=== PATIENT | female | born 1990 | race Caucasian/White ===

== ENCOUNTER 2019-08-10 11:25 | Outpatient (REF) | payer SELFPAY ==
[2019-08-10 13:41] LABS: Basophils % 0.6 %; Eosinophils # 0.2 10^3/uL (0.0-0.8); Eosinophils % 2.2 %; Hematocrit 38.1 % (37.0-47.0); Hemoglobin 11.3 g/dL (11.5-15.3); Lymphocytes # 2.1 10^3/uL (0.8-4.8); Lymphocytes % 31.3 %; Mean Corpuscular HGB Conc 29.7 g/dL (30.0-36.0); Mean Corpuscular Hemoglobin 22.6 pg (28.0-34.0); Mean Corpuscular Volume 76.2 fL (81-99); Mean Platelet Volume 11.1 fL (7.4-10.4); Monocytes # 0.5 10^3/uL (0.2-0.9); Monocytes % 7.1 %; Neutrophils # 3.9 10^3/uL (1.8-7.7); Neutrophils % 58.5 %; Nucleated Red Blood Cells % 0 %; Platelet Count 328 10^3/cmm (130-400); Red Cell Distribution Width 16.9 % (12.1-15.1); White Blood Count 6.7 10^3/uL (4.0-10.0)
[2019-08-10 14:04] LABS: Estmated Average Glucose 105; Hemoglobin A1C 5.3 % (4.0-6.0)
[2019-08-10 14:05] LABS: Alanine Aminotransferase 11 U/L (0-33); Albumin Level 3.8 g/dL (3.5-5.2); Alkaline Phosphatase 86 IU/L (35-105); Anion Gap 18.2 (5-19); Aspartate Amino Transferase 15 U/L (0-32); Blood Urea Nitrogen 14 mg/dL (6-20); Calcium 9.4 mg/dL (8.5-10.5); Carbon Dioxide 23 mmol/L (22-29); Chloride 103 mmol/L (98-107); Chol HDL Ratio 4.75 mg/dL (0.0-4.40); Cholesterol 171 mg/dL (0-200); Globulin 4.2 g/dL (1.3-4.6); Glomerular Filtration Rate 117.4 mL/min (90-130); Glucose 95 mg/dL (74-109); HDL Cholesterol 36 mg/dL (60-100); LDL Cholesterol Calculated 95 mg/dL (50-129); LDL HDL Ratio 2.64 RATIO (0.00-3.22); Potassium 4.2 mmol/L (3.5-5.1); Sodium 140 mmol/L (136-145); Total Bilirubin 0.3 mg/dL (0.15-1.2); Triglycerides 202 mg/dL (0-150)
== END 2019-08-10 11:26 | disposition home or self-care (01) ==
LOC: LAB 11:25
PROVIDERS: Visit Provider Dermatology
DX: Z01.89 Encounter for other specified special examinations (principal)
CPT/HCPCS: 80053; 80061; 83036; 85025

== ENCOUNTER 2019-09-28 10:40 | Emergency (ER) | payer SELFPAY ==
[2019-09-28 10:49] VITALS: BP 132/102; PULSE 97; RESP 15; TEMP 36.8; O2SAT 96; BMI 37.9
--- NOTE | 2019-09-28 10:53 | W.ED.DENTAL ---
HPI - Dental/Oral General: Stated complaint: fever/throwing up Time Seen by Provider: 09/28/19 10:53 Coding Level of Care Code ED Data Entry Associate for Cassi Singh
--- NOTE | 2019-09-28 11:01 | W.ED.NAVMDI ---
HPI - Nausea/Vomiting/Diarrhea General: Chief complaint: Nausea/Vomiting/Diarrhea Stated complaint: fever/throwing up Time Seen by Provider: 09/28/19 10:53 History of Present Illness: HPI Narrative: Patient comes in today with a nausea and vomiting starting this morning. Patient appears mildly unwell. Patient appears in no pain. Patient has no primary care provider. Patient does use inhalers at times for asthma. Patient does not report a fever. MD elicited complaint: nausea and vomiting Associated nausea: Yes Associated symtoms: Reports nausea Review of Systems General: Reports: 10 or more systems reviewed and unremarkable except in HPI and below GI: Reports: nausea and vomiting PFSH ED PFSH: Social History Smoking and tobacco status: former smoker Female Reproductive History: Date of last menstrual period: 07/12/19 Physical Exam Const: COMMON NORMALS: no apparent distress and oriented x3 GENERAL APPEARANCE: cooperative HENMT: COMMON NORMALS: normocephalic, external ears normal, EAC's normal, TM's normal bilaterally and external nose normal HEAD & SCALP: normal to inspection and normocephalic FACE & SINUS: normal facial exam NOSE: external nose normal GENERAL EAR: hearing not grossly impaired EXTERNAL EAR: Yes external ears normal EXTERNAL AUDITORY CANAL: EAC's normal TYMPANIC MEMBRANE: TM's normal bilaterally MOUTH: oral and palatal mucosa normal THROAT: posterior oropharynx normal Eye: COMMON NORMALS: PERRL and EOMs intact bilaterally PUPIL: Yes PERRL Neck/C-Spine: COMMON NORMALS: full ROM and no lymphadenopathy Lymph: LYMPHATIC: no lymphedema noted Chest: COMMONS NORMALS: inspection of chest normal and palpation of chest normal Resp: COMMON NORMALS: normal respiratory effort and clear to auscultation bilaterally AUSCULTATION: clear to auscultation bilaterally Cardio: COMMON NORMALS: regular rate and regular rhythm RATE: regular rate RHYTHM: regular rhythm GI: COMMON NORMALS: normal to inspection, nondistended, normoactive bowel sounds and non-tender : COMMON NORMALS: Yes no CVA tenderness BLADDER/KIDNEY EXAM: Yes no CVA tenderness Back/Pelvis: COMMON NORMALS: no CVA tenderness and thoracic and lumbar spine normal to inspection Extremity: COMMON NORMALS: normal to inspection GENERAL: No edema Neuro: COMMON NORMALS: oriented x3, moves all extremities and no focal motor deficits Psych: COMMON NORMALS: mental status grossly normal and cooperative Skin: COMMON NORMALS: no rashes or lesions noted GENERAL SKIN EXAM: no rashes or lesions noted Course Vital Signs: Vital signs: Vital Signs Temperature 98.2 F 09/28/19 10:49 Pulse Rate 97 09/28/19 10:49 Respiratory Rate 15 09/28/19 10:49 Blood Pressure 132/102 09/28/19 10:49 Pulse Oximetry 96 09/28/19 10:49 MDM - Nausea/Vomiting/Diarrhea MDM Narrative: Medical decision making narrative: Patient presents today with complaints of nausea and vomiting starting this morning. Patient appears mildly unwell. Exam notes abdomen soft nontender. Vital signs are normal. Respirations are even lungs are clear to auscultation. Differential diagnosis includes gastroenteritis, viral syndrome, cholecystitis, pancreatitis, , urinary tract infection. Laboratory values were insignificant. Encourage plenty of fluids and plenty of rest. Discussed need for medication for nausea. Patient reports understanding of care plan and need for follow-up. Lab Data: Labs: Lab Results 09/28/19 09/28/19 09/28/19 Range/Units 11:46 11:46 11:46 WBC 5.8 (4.0-10.0) 10^3/ uL RBC 4.71 (4.1-5.3) 10^6/u L Hgb 10.7 L (11.5-15.3) g/dL Hct 36.4 L (37.0-47.0) % MCV 77.3 L (81-99) fL MCH 22.7 L (28.0-34.0) pg MCHC 29.4 L (30.0-36.0) g/dL RDW 16.0 H (12.1-15.1) % Plt Count 321 (130-400) 10^3/c mm MPV 10.5 H (7.4-10.4) fL Neut % (Auto) 62.6 % Lymph % (Auto) 23.8 % [place] % (Auto) 10.8 % Eos % (Auto) 2.3 % Baso % (Auto) 0.3 % Neut # (Auto) 3.6 (1.8-7.7) 10^3/u L Lymph # (Auto) 1.4 (0.8-4.8) 10^3/u L [place] # (Auto) 0.6 (0.2-0.9) 10^3/u L Eos # (Auto) 0.1 (0.0-0.8) 10^3/u L Baso # (Auto) 0.0 (0.0-0.1) 10^3/u L Nucleated RBC % (a uto) 0 % Nucleated RBCs # 0.0 /100WBC Sodium 138 (136-145) mmol/L Potassium 4.1 (3.5-5.1) mmol/L Chloride 104 (98-107) mmol/L Carbon Dioxide 22 (22-29) mmol/L Anion Gap 16.1 (5-19) BUN 9 (6-20) mg/dL Creatinine 0.5 (0.5-0.9) mg/dL GFR Calculation 144.9 H (90-130) mL/min Glucose 88 (65-115) mg/dL Calculated Osmolal ity 281 L (285-295) mOsm/k g Calcium 9.0 (8.5-10.5) mg/dL Total Bilirubin 0.3 (0.15-1.2) mg/dL AST 18 (0-32) U/L ALT 12 (0-33) U/L Alkaline Phosphata se 81 (35-105) IU/L Total Protein 7.3 (6.6-8.7) g/dL Albumin 3.8 (3.5-5.2) g/dL Globulin 3.5 (1.3-4.6) g/dL Lipase 14 (13-60) U/L HCG, Qual Negative (Negative) Urine Color (Yellow) Urine Appearance (CLEAR) Urine pH (5-7) Ur Specific Gravit y (1.005-1.030) Urine Protein (Negative) Urine Glucose (UA) (Normal) Urine Ketones (Negative) Urine Blood (Negative) Urine Nitrate (Negative) Urine Bilirubin (NEGATIVE) Prot Sulfosalicyli c Acd Urine Urobilinogen (Negative) mg/dL Ur Leukocyte Samantha ase (Negative) Urine RBC (0-2) /hpf Urine WBC (0-5) /hpf Ur Squamous Epith Cells (0-5) Urine Bacteria (NONE) Influenza Type A A g (Negative) POC Influenza B Ag (Negative) 09/28/19 09/28/19 Range/Units 11:46 12:08 WBC (4.0-10.0) 10^3/ uL RBC (4.1-5.3) 10^6/u L Hgb (11.5-15.3) g/dL Hct (37.0-47.0) % MCV (81-99) fL MCH (28.0-34.0) pg MCHC (30.0-36.0) g/dL RDW (12.1-15.1) % Plt Count (130-400) 10^3/c mm MPV (7.4-10.4) fL Neut % (Auto) % Lymph % (Auto) % [place] % (Auto) % Eos % (Auto) % Baso % (Auto) % Neut # (Auto) (1.8-7.7) 10^3/u L Lymph # (Auto) (0.8-4.8) 10^3/u L [place] # (Auto) (0.2-0.9) 10^3/u L Eos # (Auto) (0.0-0.8) 10^3/u L Baso # (Auto) (0.0-0.1) 10^3/u L Nucleated RBC % (a uto) % Nucleated RBCs # /100WBC Sodium (136-145) mmol/L Potassium (3.5-5.1) mmol/L Chloride (98-107) mmol/L Carbon Dioxide (22-29) mmol/L Anion Gap (5-19) BUN (6-20) mg/dL Creatinine (0.5-0.9) mg/dL GFR Calculation (90-130) mL/min Glucose (65-115) mg/dL Calculated Osmolal ity (285-295) mOsm/k g Calcium (8.5-10.5) mg/dL Total Bilirubin (0.15-1.2) mg/dL AST (0-32) U/L ALT (0-33) U/L Alkaline Phosphata se (35-105) IU/L Total Protein (6.6-8.7) g/dL Albumin (3.5-5.2) g/dL Globulin (1.3-4.6) g/dL Lipase (13-60) U/L HCG, Qual (Negative) Urine Color Yellow (Yellow) Urine Appearance Hazy A (CLEAR) Urine pH 8 H (5-7) Ur Specific Gravit y 1.005 (1.005-1.030) Urine Protein Neg (Negative) Urine Glucose (UA) Norm (Normal) Urine Ketones Negative (Negative) Urine Blood Neg (Negative) Urine Nitrate Negative (Negative) Urine Bilirubin Neg (NEGATIVE) Prot Sulfosalicyli c Acd Negative Urine Urobilinogen Norm (Negative) mg/dL Ur Leukocyte Samantha ase Negative (Negative) Urine RBC None (0-2) /hpf Urine WBC None (0-5) /hpf Ur Squamous Epith Cells 10-15 H (0-5) Urine Bacteria 1+ H (NONE) Influenza Type A A g Negative (Negative) POC Influenza B Ag Negative (Negative) Discharge Plan Discharge Patient Disposition: Home, Self-Care Clinical Impression: Gastroenteritis Condition: Stable Prescriptions: New ondansetron HCl 4 mg tablet 4 mg PO Q8H PRN (Reason: nausea and vomiting) Qty: 10 RF: 0 Discharge Orders: Discharge Order (Routine); Ordered 09/28/19 Ordered By: Markus Thakur Discharge Diet: Advance as tolerated Discharge Activity: Increase activity as tolerated Patient Instructions: Gastroenteritis (ED) Activity Restrictions/Additional Instructions: Drink plenty of fluids Activity as tolerated Follow-up with primary care in one week Return to ER for worsening symptoms, high fever or blood in stool or vomit Coding Level of Care Code ED Telecommunication Engineer for Cassi Fwd Exam Comprehensive
[2019-09-28] MEDS: ondansetron 2 mg/ML SDV 2 mL 4 MG IVP (11:39)
[2019-09-28] MEDS: sodium chloride 0.9% 1,000 ML 999 ML IV (11:40)
[2019-09-28 12:00] LABS: Basophils % 0.3 %; Eosinophils # 0.1 10^3/uL (0.0-0.8); Eosinophils % 2.3 %; Hematocrit 36.4 % (37.0-47.0); Hemoglobin 10.7 g/dL (11.5-15.3); Lymphocytes # 1.4 10^3/uL (0.8-4.8); Lymphocytes % 23.8 %; Mean Corpuscular HGB Conc 29.4 g/dL (30.0-36.0); Mean Corpuscular Hemoglobin 22.7 pg (28.0-34.0); Mean Corpuscular Volume 77.3 fL (81-99); Mean Platelet Volume 10.5 fL (7.4-10.4); Monocytes # 0.6 10^3/uL (0.2-0.9); Monocytes % 10.8 %; Neutrophils # 3.6 10^3/uL (1.8-7.7); Neutrophils % 62.6 %; Nucleated Red Blood Cells % 0 %; Platelet Count 321 10^3/cmm (130-400); Red Blood Count 4.71 10^6/uL (4.1-5.3); White Blood Count 5.8 10^3/uL (4.0-10.0)
[2019-09-28 12:09] LABS: HCG, Serum Qual Negative (Negative)
[2019-09-28 12:12] LABS: Alanine Aminotransferase 12 U/L (0-33); Albumin Level 3.8 g/dL (3.5-5.2); Alkaline Phosphatase 81 IU/L (35-105); Anion Gap 16.1 (5-19); Aspartate Amino Transferase 18 U/L (0-32); Blood Urea Nitrogen 9 mg/dL (6-20); Carbon Dioxide 22 mmol/L (22-29); Chloride 104 mmol/L (98-107); Globulin 3.5 g/dL (1.3-4.6); Glomerular Filtration Rate 144.9 mL/min (90-130); Glucose 88 mg/dL (65-115); Lipase 14 U/L (13-60); Osmolality Calculated 281 mOsm/kg (285-295); Potassium 4.1 mmol/L (3.5-5.1); Sodium 138 mmol/L (136-145); Total Bilirubin 0.3 mg/dL (0.15-1.2); Total Protein 7.3 g/dL (6.6-8.7)
[2019-09-28 12:54] LABS: Influenza A by IFA Negative (Negative); Influenza B by IFA Negative (Negative)
[2019-09-28 13:00] LABS: Add Urine Microscopic? YES; Bilirubin Urine Neg (NEGATIVE); Blood Urine Neg (Negative); Glucose Urine UA Norm (Normal); Ketones Urine Negative (Negative); Leukocyte Esterase Urine Negative (Negative); Nitrate Urine Negative (Negative); Protein Urine Neg (Negative); Specific Gravity, Urine 1.005 (1.005-1.030); Sulfosalicylic Acid Urine Negative; Urine Appearance Hazy (CLEAR); Urine Color Yellow (Yellow); Urobilinogen Urine Norm (Negative); pH Urine 8 (5-7)
[2019-09-28 13:02] LABS: Add Urine Culture? No; Bacteria Urine 1+
[2019-09-28 14:44] VITALS: BP 125/74; PULSE 82; RESP 17; O2SAT 98
== END 2019-09-28 14:46 | disposition home or self-care (01) ==
PROVIDERS: Emergency Provider Nurse Practitioner Family
DX: K52.9 Noninfective gastroenteritis and colitis, unspecified (principal); Z87.891 Personal history of nicotine dependence
CPT/HCPCS: 12345; 36415; 80053; 81001; 83690; 84703; 85025; 87804; 96361; 96374; 96375; 99283; A9270; J2405; J7030

== ENCOUNTER 2019-12-05 17:27 | Emergency (ER) | payer SELFPAY ==
[2019-12-05 17:51] VITALS: BP 119/87; PULSE 97; RESP 16; TEMP 36.8; O2SAT 98; BMI 36.3
--- NOTE | 2019-12-05 17:59 | USCV_ITS ---
Leila Armstrong Age: 29 Gender: F : 1990 Exam Date: 12/05/2019 19:06 Ordering Phys: Constantine Marr MD Technologist: Jeffery Mensah Exam Location: [facility] [place] Indication: SWELLING HISTORY: Lower extremity swelling. PROCEDURES: Venous duplex imaging was performed in only the left lower extremity. The following venous structures were evaluated: common femoral vein, profunda vein, proximal portion of the greater saphenous vein, superficial femoral vein, and the popliteal vein. In addition, the posterior tibial and peroneal trunk were evaluated. Serial compression, augmentation maneuvers, and spectral Doppler flow evaluation were performed. FINDINGS: Normal 2-D Doppler and augmentation and compressibility throughout the lower extremity venous structures. Additional imaging through the proximal calf veins also reveals no thrombus. Limited evaluation of the greater saphenous vein is patent with no thrombus. CONCLUSIONS No DVT left lower extremity. Dr. Luciana Lam DO (Electronically Signed) Final Date: 07 Dec 2019 07:49 S
--- NOTE | 2019-12-05 18:00 | ED_ITS ---
HPI - Extremity Problem General: Chief complaint: Extremity Problem,Nontraumatic Stated complaint: r leg injury Time Seen by Provider: 12/05/19 17:55 Source: patient Mode of arrival: ambulatory Limitations: no limitations History of Present Illness: HPI Narrative: 29-year-old female states she had left posterior knee pain over the last day. She is concerned of a cyst or clot. She denies any known injury and states she woke up with the pain. She denies any fever and has no warmth of the joint. MD Complaint: joint pain Onset (ago): hour(s) Pain Consistency: constant Location: left Severity scale (1-10): 4 Quality: aching Relieving factors: immobilization Exacerbating factors: range of motion Associated symptoms: Deny chest pain, fever(s) or rash Review of Systems Const: Denies: fever(s), chills, body aches or change in appetite Eyes: Denies: blurry vision or eye discomfort ENMT: Denies: throat pain or dental pain Card: Denies: chest pain Resp: Denies: dyspnea GI: Denies: abdominal pain, nausea, vomiting or diarrhea : Denies: dysuria Musc: Denies: neck pain or back pain Skin/Breast: Denies: rash Neuro: Denies: headache(s) Psych: Denies: depression Brijesh/Lymph: Denies: easy bruising All/Imm: Denies: urticaria PFSH ED PFSH: Social History Smoking and tobacco status: never smoked Female Reproductive History: Date of last menstrual period: 11/14/19 Physical Exam Const: COMMON NORMALS: no acute distress, patient oriented x3 and healthy ap pearing HENMT: COMMON NORMALS: normocephalic and atraumatic HEAD & SCALP: normocephalic and atraumatic Eye: COMMON NORMALS: Equal, round and reactive pupils present and EOMs intact bilaterally PUPIL: Yes Equal, round and reactive pupils present Neck/C-Spine: COMMON NORMALS: full ROM and supple Chest: COMMONS NORMALS: normal inspection of the chest and normal palpation of entire chest wall Resp: COMMON NORMALS: normal respiratory effort, No retractions, No use of accessory muscles and clear to auscultation bilaterally AUSCULTATION: clear to auscultation bilaterally Cardio: COMMON NORMALS: regular rate, regular rhythm and No murmurs present (Cardio) RATE: regular rate RHYTHM: regular rhythm GI: COMMON NORMALS: Normal to inspection, nondistended, normoactive bowel sounds present, Soft to palpation, non-tender and no masses PALPATION: Yes Soft to palpation Extremity: COMMON NORMALS: normal to inspection and full ROM NARRATIVE EXTREMITY EXAM: Tenderness to posterior aspect of left knee with no obvious deformity full range of motion is possible. Neuro: COMMON NORMALS: patient oriented x3, moves all extremities and no focal motor deficits Psych: COMMON NORMALS: mental status grossly normal, Normal thought process present and cooperative THOUGHT PROCESS: Normal thought process present Skin: COMMON NORMALS: no rashes or lesions noted and no wounds GENERAL SKIN EXAM: no rashes or lesions noted Course Vital Signs: Vital signs: Vital Signs Temperature 98.2 F 12/05/19 17:51 Pulse Rate 102 H 12/05/19 18:44 Respiratory Rate 18 12/05/19 18:44 Blood Pressure 128/87 12/05/19 18:44 Pulse Oximetry 93 12/05/19 18:44 MDM - Extremity (Nontraumatic) MDM Narrative: Medical decision making narrative: Patient presents with knee pain with ultrasound showing no DVT. Patient has no signs of septic joint. Patient is well-appearing here. Patient is stable for discharge and is to follow-up with primary care doctor in 3 to 5 days return if worsening. Imaging Data^: US Vascular: Attestation: I personally reviewed and interpreted this imaging study as follows: My impression: no dvt Discharge Plan Discharge Patient Disposition: Home, Self-Care Clinical Impression: Left leg pain Condition: Stable Prescriptions: New Naprosyn 500 mg tablet 500 mg PO BID PRN (Reason: pain) Qty: 20 RF: 0 No Action albuterol sulfate 90 mcg/actuation Hfa Aerosol Inhaler 2 puff INHALATION 6XD PRN (Reason: Shortness Of Breath) RF: 0 Discharge Orders: Discharge Order (Routine); Ordered 12/05/19 Ordered By: Constantine Marr Discharge Diet: Advance as tolerated Discharge Activity: Resume usual activity Patient Instructions: Knee Pain (ED) Coding Level of Care Code ED Conditioning Room Worker for Chg Fwd Exam Comprehensive
[2019-12-05] MEDS: HYDROcodone-acetaminophen 5-325 mg Tablet 1 TAB PO (18:41)
[2019-12-05 18:44] VITALS: BP 128/87; PULSE 102; RESP 18; O2SAT 93
[2019-12-05 19:28] VITALS: BP 116/75; PULSE 88; RESP 14; O2SAT 96
== END 2019-12-05 19:30 | disposition home or self-care (01) ==
PROVIDERS: Emergency Provider Emergency Medicine
DX: M79.604 Pain in right leg (principal)
CPT/HCPCS: 12345; 93971; 99281; 99283

== ENCOUNTER 2019-12-24 19:55 | Emergency (ER) | payer SELFPAY ==
[2019-12-24 20:07] VITALS: BP 112/69; PULSE 96; RESP 18; TEMP 36.3; O2SAT 97; BMI 40.3
--- NOTE | 2019-12-24 21:36 | ED_ITS ---
HPI - Extremity Problem General: Chief complaint: Extremity Injury, Lower Stated complaint: left knee pain Time Seen by Provider: 12/24/19 21:35 Source: patient Mode of arrival: ambulatory Limitations: no limitations History of Present Illness: HPI Narrative: Patient comes in with left lower leg pain. Patient was seen about 2 weeks ago for similar complaints and was cleared of a DVT. Patient reports that pain has not really subsided since that time and she is continued to have discomfort. Patient appears well. Patient appears in moderate pain. Review of Systems General: Reports: 10 or more systems reviewed and unremarkable except in HPI and below Musc: Reports: extremity pain PFSH ED PFSH: Social History Smoking and tobacco status: never smoked Female Reproductive History: Date of last menstrual period: 11/14/19 Physical Exam Const: COMMON NORMALS: no acute distress and patient oriented x3 GENERAL APPEARANCE: cooperative HENMT: COMMON NORMALS: normocephalic and Normal external nose present HEAD & SCALP: normal to inspection and normocephalic NOSE: Normal external nose present MOUTH: Normal oral and palatal mucosa present THROAT: posterior oropharynx normal Eye: GENERAL EYE: appearance normal, both eyes and all related structures Neck/C-Spine: COMMON NORMALS: full ROM Chest: COMMONS NORMALS: normal inspection of the chest Resp: COMMON NORMALS: normal respiratory effort EFFORT & INSPECTION: Yes able to speak in complete sentences Cardio: COMMON NORMALS: regular rate and regular rhythm RATE: regular rate RHYTHM: regular rhythm GI: COMMON NORMALS: non-tender : COMMON NORMALS: Yes no CVA tenderness BLADDER/KIDNEY EXAM: Yes no CVA tenderness Back/Pelvis: COMMON NORMALS: no CVA tenderness and thoracic and lumbar spine normal to inspection Extremity: NARRATIVE EXTREMITY EXAM: Induration erythema is noted to the lateral lower leg just below the knee joint. Area is approximately 8 cm x 4 cm ovoid. Patient also has some surrounding tissue erythema and splotchy-like appearance. Neuro: COMMON NORMALS: patient oriented x3 and moves all extremities Psych: COMMON NORMALS: mental status grossly normal and cooperative Skin: COMMON NORMALS: no rashes or lesions noted GENERAL SKIN EXAM: no rashes or lesions noted Course Vital Signs: Vital signs: Vital Signs Temperature 97.3 F L 12/24/19 20:07 Pulse Rate 78 12/24/19 21:50 Respiratory Rate 18 12/24/19 21:50 Blood Pressure 125/81 12/24/19 21:50 Pulse Oximetry 99 12/24/19 21:50 MDM - Extremity (Nontraumatic) MDM Narrative: Medical decision making narrative: Patient comes in today with persistent redness and swelling to the left lower leg on the lateral side. Patient been seen 2 weeks ago when this started and was cleared of any DVT at the time and also any knee joint injury. On exam today we noted some redness and induration to the lateral lower leg just below the left knee joint. She also has some other areas of erythema with some palpable tender areas underneath it to the same extremity. Pulses were intact. The minimal swelling was noted to the lower extremity. Differential diagnosis includes DVT, erythema noduosum, cellulitis, inflamed varicosity. Laboratory values noted some mild anemia with a H&H of 10 and 34, CRP was normal, DVT was negative, CMP otherwise was normal. Suspect may be a mild cellulitis will go ahead and treat with cephalexin and ceftriaxone. Patient was written a prescription for pain and recommend use acetaminophen and ibuprofen otherwise. Another possibility may be erythema noduosum which is a self-limiting illness that should clear within the next 2 to 3 weeks. These diagnoses was reviewed with patient with recommendations for follow-up or need to return to the ER. Patient reported understanding and agreed to plan. Lab Data: Labs: Lab Results 12/24/19 12/24/19 12/24/19 Range/Units 21:57 21:57 21:57 WBC 7.1 (4.0-10.0) 10^3/ uL RBC 4.59 (4.1-5.3) 10^6/u L Hgb 10.1 L (11.5-15.3) g/dL Hct 34.4 L (37.0-47.0) % MCV 74.9 L (81-99) fL MCH 22.0 L (28.0-34.0) pg MCHC 29.4 L (30.0-36.0) g/dL RDW 16.4 H (12.1-15.1) % Plt Count 380 (130-400) 10^3/c mm MPV 10.2 (7.4-10.4) fL Neut % (Auto) 51.6 % Lymph % (Auto) 35.2 % [place] % (Auto) 9.3 % Eos % (Auto) 3.0 % Baso % (Auto) 0.6 % Neut # (Auto) 3.7 (1.8-7.7) 10^3/u L Lymph # (Auto) 2.5 (0.8-4.8) 10^3/u L [place] # (Auto) 0.7 (0.2-0.9) 10^3/u L Eos # (Auto) 0.2 (0.0-0.8) 10^3/u L Baso # (Auto) 0.0 (0.0-0.1) 10^3/u L Nucleated RBC % (a uto) 0 % Nucleated RBCs # 0.0 /100WBC D-Dimer 0.59 (0-0.59) ug/mIFE U Sodium 138 (136-145) mmol/L Potassium 4.1 (3.5-5.1) mmol/L Chloride 101 (98-107) mmol/L Carbon Dioxide 23 (22-29) mmol/L Anion Gap 18.1 (5-19) BUN 16 (6-20) mg/dL Creatinine 0.5 (0.5-0.9) mg/dL GFR Calculation 143.9 H (90-130) mL/min Glucose 96 (65-115) mg/dL Calculated Osmolal ity 282 L (285-295) mOsm/k g Calcium 9.2 (8.5-10.5) mg/dL Total Bilirubin 0.3 (0.15-1.2) mg/dL AST 20 (0-32) U/L ALT 13 (0-33) U/L Alkaline Phosphata se 80 (35-105) IU/L C-Reactive Protein 17.9 H (0.0-4.9) mg/L Total Protein 7.9 (6.6-8.7) g/dL Albumin 4.2 (3.5-5.2) g/dL Globulin 3.7 (1.3-4.6) g/dL Discharge Plan Discharge Patient Disposition: Home, Self-Care Clinical Impression: Cellulitis and abscess of left leg Condition: Stable Prescriptions: New cephalexin 500 mg capsule 500 mg PO Q6H 7 Days Qty: 28 RF: 0 hydrocodone-acetaminophen 5-325 mg tablet 1 tab PO Q8H PRN (Reason: pain) Qty: 6 RF: 0 No Action albuterol sulfate 90 mcg/actuation Hfa Aerosol Inhaler 2 puff INHALATION 6XD PRN (Reason: Shortness Of Breath) RF: 0 Naprosyn 500 mg tablet 500 mg PO BID PRN (Reason: pain) Qty: 20 RF: 0 Discharge Orders: Discharge Order (Routine); Ordered 12/24/19 Ordered By: Markus Thakur Discharge Diet: Usual diet Discharge Activity: Increase activity as tolerated Patient Instructions: Cellulitis (ED) Activity Restrictions/Additional Instructions: Take antibiotics as directed. Use hydrocodone as needed for severe pain. Use acetaminophen and ibuprofen for control of pain. Is important to take the antibiotics as directed 4 times a day. Follow-up with primary care in 1 week. Return to the ER for high fever or worsening symptoms. Coding Level of Care Code ED Change House Attendant for Cassi Fwd Exam Comprehensive
[2019-12-24] MEDS: HYDROcodone-acetaminophen 7.5-325 mg Tablet 1 TAB PO (21:49)
[2019-12-24 21:50] VITALS: BP 125/81; PULSE 78; RESP 18; O2SAT 99
[2019-12-24 22:04] LABS: Basophils % 0.6 %; Eosinophils # 0.2 10^3/uL (0.0-0.8); Hematocrit 34.4 % (37.0-47.0); Hemoglobin 10.1 g/dL (11.5-15.3); Lymphocytes # 2.5 10^3/uL (0.8-4.8); Lymphocytes % 35.2 %; Mean Corpuscular HGB Conc 29.4 g/dL (30.0-36.0); Mean Corpuscular Volume 74.9 fL (81-99); Mean Platelet Volume 10.2 fL (7.4-10.4); Monocytes # 0.7 10^3/uL (0.2-0.9); Monocytes % 9.3 %; Neutrophils # 3.7 10^3/uL (1.8-7.7); Neutrophils % 51.6 %; Nucleated Red Blood Cells % 0 %; Platelet Count 380 10^3/cmm (130-400); Red Blood Count 4.59 10^6/uL (4.1-5.3); Red Cell Distribution Width 16.4 % (12.1-15.1); White Blood Count 7.1 10^3/uL (4.0-10.0)
[2019-12-24 22:22] LABS: D Dimer 0.59 ug/mIFEU (0-0.59)
[2019-12-24 22:25] LABS: Alanine Aminotransferase 13 U/L (0-33); Albumin Level 4.2 g/dL (3.5-5.2); Alkaline Phosphatase 80 IU/L (35-105); Anion Gap 18.1 (5-19); Aspartate Amino Transferase 20 U/L (0-32); Blood Urea Nitrogen 16 mg/dL (6-20); C Reactive Protein 17.9 mg/L (0.0-4.9); Calcium 9.2 mg/dL (8.5-10.5); Carbon Dioxide 23 mmol/L (22-29); Chloride 101 mmol/L (98-107); Globulin 3.7 g/dL (1.3-4.6); Glomerular Filtration Rate 143.9 mL/min (90-130); Glucose 96 mg/dL (65-115); Osmolality Calculated 282 mOsm/kg (285-295); Potassium 4.1 mmol/L (3.5-5.1); Sodium 138 mmol/L (136-145); Total Bilirubin 0.3 mg/dL (0.15-1.2); Total Protein 7.9 g/dL (6.6-8.7)
[2019-12-24] MEDS: lidocaine 1% INJ 20 mL 2.1 ML INTRADERMA (22:59)
[2019-12-24] MEDS: cefTRIAXone 1,000 mg SDV 1000 MG IM (23:00)
[2019-12-24 23:11] VITALS: BP 124/84; PULSE 88; RESP 18; O2SAT 98
== END 2019-12-24 23:13 | disposition home or self-care (01) ==
PROVIDERS: Emergency Provider Nurse Practitioner Family
DX: L03.116 Cellulitis of left lower limb (principal); L02.416 Cutaneous abscess of left lower limb
CPT/HCPCS: 12345; 80053; 85025; 85378; 86140; 96372; 99282; 99283; J0696; J2001

== ENCOUNTER 2020-03-27 17:35 | Emergency (ER) | payer SELFPAY ==
[2020-03-27 17:39] VITALS: BP 114/94; PULSE 98; RESP 18; TEMP 36.9; O2SAT 99; BMI 36.3
[2020-03-27 17:50] VITALS: BP 114/94; PULSE 94; RESP 16; O2SAT 97
--- NOTE | 2020-03-27 17:54 | XR_ITS ---
WS: [id number] EXAM: Chest: PA and lateral DATE OF EXAMINATION: 03/27/2020, 1816 hours COMPARISON: None. HISTORY: Patient is 29 years old with shortness of breath.. FINDINGS: The heart size is normal. The mediastinal contours are normal. Pulmonary vascularity is within norm al limits. The lungs are clear. No effusion, or pneumothorax. Bone density is normal. Enlarged body habitus demonstrated. XR/XR chest 2V* [id number] IMPRESSION: NO ACUTE PULMONARY DISEASE.
[2020-03-27] MEDS: predniSONE 20 mg Tablet 60 MG PO (17:58)
[2020-03-27] MEDS: ipratropium-albuterol 3 mL Neb INHALATION (18:00)
[2020-03-27 18:01] VITALS: PULSE 96; RESP 18; O2SAT 99
[2020-03-27 18:11] VITALS: PULSE 111; RESP 18; O2SAT 99
--- NOTE | 2020-03-27 18:26 | ED_ITS ---
HPI - SOB/Dyspnea General: Chief Complaint: Shortness of Breath/Dyspnea Stated Complaint: SOB Time Seen by Provider: 03/27/20 17:46 Source: patient Mode of arrival: ambulatory Limitations: no limitations History of Present Illness: HPI Narrative: 29-year-old female has a long history of asthma states she has had increased wheezing and shortness of breath over the last 3 to 4 days. She denies any fever. Denies any worsening or improving factors. Patient is currently in no distress in the room. 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 MD elicited complaint: shortness of breath Pertinent past history: asthma Associated symptoms: Deny abdominal pain, chest pain, fever(s), nausea or vomiting Review of Systems Const: Denies: fever(s), chills, body aches or change in appetite Eyes: Denies: blurry vision or eye discomfort ENMT: Denies: throat pain or dental pain Card: Denies: chest pain Resp: Reports: dyspnea and wheezing GI: Denies: abdominal pain, nausea, vomiting or diarrhea : Denies: dysuria Musc: Denies: neck pain or back pain Skin/Breast: Denies: rash Neuro: Denies: headache(s) Psych: Denies: depression Brijesh/Lymph: Denies: easy bruising All/Imm: Denies: urticaria PFSH ED PFSH: Social History Smoking and tobacco status: never smoked Female Reproductive History: Date of last menstrual period: 11/14/19 Physical Exam Const: COMMON NORMALS: no acute distress, patient oriented x3 and healthy appearing HENMT: COMMON NORMALS: normocephalic and atraumatic HEAD & SCALP: normocephalic and atraumatic Eye: COMMON NORMALS: Equal, round and reactive pupils present and EOMs intact bilaterally PUPIL: Yes Equal, round and reactive pupils present Neck/C-Spine: COMMON NORMALS: full ROM and supple Chest: COMMONS NORMALS: normal inspection of the chest and normal palpation of entire chest wall Resp: COMMON NORMALS: normal respiratory effort, No retractions and No use of accessory muscles AUSCULTATION: wheezes Cardio: COMMON NORMALS: regular rate, regular rhythm and No murmurs present (Cardio) RATE: regular rate RHYTHM: regular rhythm GI: COMMON NORMALS: Normal to inspection, nondistended, normoactive bowel sounds present, Soft to palpation, non-tender and no masses PALPATION: Yes S oft to palpation Extremity: COMMON NORMALS: normal to inspection and full ROM Neuro: COMMON NORMALS: patient oriented x3, moves all extremities and no focal motor deficits Psych: COMMON NORMALS: mental status grossly normal, Normal thought process present and cooperative THOUGHT PROCESS: Normal thought process present Skin: COMMON NORMALS: no rashes or lesions noted and no wounds GENERAL SKIN EXAM: no rashes or lesions noted Course Vital Signs: Vital signs: Vital Signs Temperature 98.5 F 03/27/20 17:39 Pulse Rate 111 H 03/27/20 18:11 Respiratory Rate 18 03/27/20 18:11 Blood Pressure 114/94 03/27/20 17:50 Pulse Oximetry 99 03/27/20 18:11 MDM - SOB/Dyspnea MDM Narrative: Medical decision making narrative: Patient presents for shortness of breath likely asthma exacerbation. Patient's wheezing is much improved after breathing treatment. Patient has no signs of pneumonia on x-ray. Will swab for coronavirus and discharged on steroids. She is to return if worsening. Imaging Data^: CXR: Attestation: I personally reviewed and interpreted this imaging study as follows: My impression: no acute abnormality Discharge Plan Discharge Patient Disposition: Home Clinical Impression: Asthma with exacerbation Qualifiers: Asthma severity: unspecified severity Asthma persistence: unspecified Qualified Code(s): J45.901 - Unspecified asthma with (acute) exacerbation Condition: Stable Prescriptions: New prednisone 50 mg tablet 50 mg PO DAILY Qty: 5 RF: 0 No Action albuterol sulfate 90 mcg/actuation Hfa Aerosol Inhaler 2 puff INHALATION 6XD PRN (Reason: Shortness Of Breath) RF: 0 Naprosyn 500 mg tablet 500 mg PO BID PRN (Reason: pain) Qty: 20 RF: 0 hydrocodone-acetaminophen 5-325 mg tablet 1 tab PO Q8H PRN (Reason: pain) Qty: 6 RF: 0 Discharge Orders: Discharge Order (Routine); Ordered 03/27/20 Ordered By: Constantine Marr Discharge Diet: Advance as tolerated Discharge Activity: Resume usual activity Patient Instructions: Asthma (ED) Coding Level of Care Code ED Information Security Officer for Cassi Singh
[2020-03-27 18:41] VITALS: BP 143/96; PULSE 115; RESP 18; O2SAT 98
[2020-03-29 16:06] LABS: Quest SARS-CoV-2 RNA NOT DETECTED (NOT DETECTED)
== END 2020-03-27 18:41 | disposition home or self-care (01) ==
PROVIDERS: Emergency Provider Emergency Medicine
DX: J45.901 Unspecified asthma with (acute) exacerbation (principal)
CPT/HCPCS: 12345; 71046; 87635; 94640; 99282; 99283; J7512; J7611

== ENCOUNTER 2020-03-28 18:14 | Emergency (ER) | payer SELFPAY ==
[2020-03-28 18:17] VITALS: BP 117/83; PULSE 91; RESP 18; TEMP 36.3; O2SAT 96; BMI 32.3
--- NOTE | 2020-03-28 18:17 | XRR_ITS ---
PROCEDURE INFORMATION: Exam: XR Chest, 1 View Exam date and time: 03/28/2020 6:34 PM Age: 29 years old Clinical indication: Pain and condition or disease; Lung condition and disease; Asthma; Chest pain; Type not specified; Additional info: Cp since 03/12/20 TECHNIQUE: Imaging protocol: XR of the chest Views: 1 view. COMPARISON: CR XR chest 2V* [id number] 03/27/2020 6:15 PM FINDINGS: Lungs: Unremarkable. No consolidation. Pleural space: Unremarkable. No pleural effusion. No pneumothorax. Heart/Mediastinum: Unremarkable. No cardiomegaly. Bones/joints: Unremarkable. XR/XR chest 1V portable [id number] IMPRESSION: No acute findings.
--- NOTE | 2020-03-28 20:17 | ECG_ITS ---
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 Measurements Intervals [place] Rate: 83 P: 37 MN: 147 QRS: 39 QRSD: 88 T: 25 QT: 350 QTc: 411 Interpretive Statements SINUS RHYTHM No previous ECG available for comparison Electronically Signed On 03-30-2020 9:10:42 CDT by Zulay Nichols M.D. [id number]
--- NOTE | 2020-03-28 20:55 | W.ED.SOB ---
HPI - SOB/Dyspnea General: Chief Complaint: Shortness of Breath/Dyspnea Stated Complaint: asthma atack/chest pain Time Seen by Provider: 03/28/20 20:46 Source: patient Mode of arrival: ambulatory Limitations: no limitations History of Present Illness: HPI Narrative: Leila is a nice 29-year-old female who comes in complaining of 3 days of shortness of breath. She denies any fevers or chills. She has a dry cough. Denies any loss of sense of taste or loss of sense of smell. She denies sore throat. Patient states that nothing is seeming to make her symptoms better or worse. She has occasional chest pain when she coughs. Denies abdominal pain or vomiting. She denies any other complaints at this time Associated symptoms: Deny abdominal pain, chest congestion, chest pain, diaphoresis, dizziness, extremity pain, fever(s), hemoptysis, lightheadedness, nausea, orthopnea, palpitations, syncope or vomiting Review of Systems Const: Denies: fever(s), chills, body aches, fatigue, malaise or diaphoresis Eyes: Denies: change in vision, blurry vision, photophobia, eye discomfort, eye discharge, eye redness or yellow eyes ENMT: Denies: throat pain, odynophagia, hoarseness, swelling of lips/tongue, ear or mastoid pain, ear discharge, change in hearing or nasal discharge Card: Denies: chest pain, palpitations, irregular heart rhythm, edema, lightheadedness, syncope, pre-syncope, dyspnea on exertion or orthopnea Resp: Reports: dyspnea, non-productive cough and wheezing; Denies: productive cough, hemoptysis or chest congestion GI: Denies: abdominal pain, nausea, vomiting, hematemesis, coffee ground emesis, heartburn, diarrhea, constipation, GI cramping, hematochezia or melena : Denies: flank pain, dysuria, urinary frequency, urinary urgency or hematuria Musc: Denies: neck pain, back pain, extremity pain, extremity swelling, joint pain, joint swelling, joint redness, joint warmth or joint stiffness Skin/Breast: Denies: rash, pruritus, erythema, skin pain or skin tenderness Neuro: Denies: headache(s), numbness in extremities, weakness in extremities, sensory changes, lack of coordination, difficulty walking, dizziness, vertigo, confusion, Slurred speech present or seizure-like activity Brijesh/Lymph: Denies: easy bruising, easy bleeding, petechiae, purpura or enlarged lymph nodes All/Imm: Denies: urticaria, throat swelling, tongue swelling, facial swelling or acute wheezing PFSH ED PFSH: Medical History (Updated 03/28/20 @ 22:06 by Candy Carvajal) No pertinent past medical history Social History Smoking and tobacco status: never smoked Female Reproductive History: Date of last menstrual period: 11/14/19 Physical Exam Const: COMMON NORMALS: no acute distress, patient oriented x3, no limitations and alert GENERAL APPEARANCE: cooperative HENMT: COMMON NORMALS: normocephalic, atraumatic, external ears normal, EAC's normal and Normal external nose present HEAD & SCALP: normal to inspection, normocephalic and atraumatic FACE & SINUS: normal facial exam and face symmetric NOSE: Normal external nose present and Normal nares present EXTERNAL EAR: Yes external ears normal EXTERNAL AUDITORY CANAL: EAC's normal MOUTH: Normal oral and palatal mucosa present, lip normal and tongue normal Eye: COMMON NORMALS: Equal, round and reactive pupils present and conjunctivae normal GENERAL EYE: appearance normal, both eyes and all related structures ALIGNMENT: Yes alignment normal PERIORBITAL: periorbital findings normal EYELID: eyelids normal CONJUNCTIVA: Yes conjunctivae normal SCLERA: sclerae normal PUPIL: Yes Equal, round and reactive pupils present Neck/C-Spine: COMMON NORMALS: full ROM, no lymphadenopathy, supple, no meningeal signs and no JVD GENERAL: Yes normal visual inspection and Yes trachea midline Chest: COMMONS NORMALS: normal inspection of the chest and normal palpation of entire chest wall Resp: COMMON NORMALS: normal respiratory effort, No retractions, No use of accessory muscles and clear to auscultation bilaterally EFFORT & INSPECTION: Yes able to speak in complete sentences and Yes symmetric chest movement AUSCULTATION: clear to auscultation bilaterally, no crackles, no rales, no rhonchi and wheezes Cardio: COMMON NORMALS: no JVD, regular rate, regular rhythm, S1 normal heart sound present and S2 normal heart sound present RATE: regular rate RHYTHM: regular rhythm HEART SOUNDS: S1 normal heart sound present, S2 normal heart sound present, no click, no gallops, no murmurs and no rubs GI: COMMON NORMALS: Soft to palpation and No hepatosplenomegaly present PALPATION: Yes Soft to palpation, No Tenderness to palpation present (GI), No Guarding due to palpation present (GI), No Rigid due to palpation, Yes No hepatosplenomegaly present, No Hernia present, No Palpable mass present and No Pulsatile mass present : COMMON NORMALS: Yes no CVA tenderness BLADDER/KIDNEY EXAM: Yes no CVA tenderness EXTERNAL FEMALE EXAM: No Hernia present Back/Pelvis: COMMON NORMALS: no CVA tenderness, thoracic and lumbar spine normal to inspection, no thoracic nor lumbar tenderness and thoraco-lumbar ROM normal Extremity: COMMON NORMALS: normal to inspection, full ROM, capillary refill normal, no joint enlargement, no clubbing, cyanosis or edema and no calf tenderness Neuro: COMMON NORMALS: patient oriented x3, CN's II-XII intact bilaterally, moves all extremities, no focal motor deficits and no sensory deficits noted SENSORIUM/ORIENTATION: Yes alert MENINGEAL SIGNS: Yes no meningeal signs SPEECH: speech normal Psych: COMMON NORMALS: mental status grossly normal, Normal thought process present, cooperative, normal affect, speech normal and activity/motor behavior normal SPEECH: Yes normal speech THOUGHT PROCESS: Normal thought process present Skin: COMMON NORMALS: no rashes or lesions noted, turgor normal, no jaundice, no petechiae and no mottling GENERAL SKIN EXAM: no rashes or lesions noted and turgor normal Course Vital Signs: Vital signs: Vital Signs Temperature 97.3 F L 03/28/20 18:17 Pulse Rate 76 03/28/20 22:00 Respiratory Rate 18 03/28/20 22:00 Blood Pressure 117/83 03/28/20 18:17 Pulse Oximetry 100 03/28/20 22:00 MDM - SOB/Dyspnea MDM Narrative: Medical decision making narrative: Leila is a nice 29-year-old female comes in complaining of occasional pleuritic chest pain with cough. Her EKG is unremarkable. Her troponin is negative. She claims her chest pain is been constant so per the hospital chest pain pathway over 3 hours of pain with a negative EKG and troponin rules out cardiac disease. Patient has no risk factors for heart disease. She had a slight wheeze when she arrived. When I reviewed all this with her the first thing she asked for is a work excuse through next Wednesday. I will go and excuse her if she believes she needs this much rest. Patient denies any other concerns. Lab Data: Attestation: I reviewed the patient's lab results. Labs: Lab Results 03/28/20 03/28/20 03/28/20 Range/Units 21:21 21:21 21:21 WBC 8.5 (4.0-10.0) 10^3/ uL RBC 5.48 H (4.1-5.3) 10^6/u L Hgb 11.4 L (11.5-15.3) g/dL Hct 39.7 (37.0-47.0) % MCV 72.4 L (81-99) fL MCH 20.8 L (28.0-34.0) pg MCHC 28.7 L (30.0-36.0) g/dL RDW 17.8 H (12.1-15.1) % Plt Count 433 H (130-400) 10^3/c mm MPV 10.4 (7.4-10.4) fL Neut % (Auto) 56.8 % Lymph % (Auto) 32.5 % [place] % (Auto) 8.0 % Eos % (Auto) 1.9 % Baso % (Auto) 0.6 % Neut # (Auto) 4.83 (1.8-7.7) 10^3/u L Lymph # (Auto) 2.8 (0.8-4.8) 10^3/u L [place] # (Auto) 0.7 (0.2-0.9) 10^3/u L Eos # (Auto) 0.2 (0.0-0.8) 10^3/u L Baso # (Auto) 0.1 (0.0-0.1) 10^3/u L Nucleated RBC % (a uto) 0 % Nucleated RBCs # 0.0 /100WBC D-Dimer 0.44 (0-0.59) ug/mIFE U Sodium 139 (136-145) mmol/L Potassium 3.7 (3.5-5.1) mmol/L Chloride 103 (98-107) mmol/L Carbon Dioxide 23 (22-29) mmol/L Anion Gap 16.7 (5-19) BUN 15 (6-20) mg/dL Creatinine 0.7 (0.5-0.9) mg/dL GFR Calculation 97.6 (90-130) mL/min Glucose 86 (65-115) mg/dL Calculated Osmolal ity 288 (285-295) mOsm/k g Calcium 9.7 (8.5-10.5) mg/dL Total Bilirubin 0.3 (0.15-1.2) mg/dL AST 17 (0-32) U/L ALT 14 (0-33) U/L Alkaline Phosphata se 79 (35-105) IU/L Troponin T Baselin e (0-10) ng/L Total Protein 8.0 (6.6-8.7) g/dL Albumin 4.6 (3.5-5.2) g/dL Globulin 3.4 (1.3-4.6) g/dL 03/28/20 Range/Units 21:21 WBC (4.0-10.0) 10^3/ uL RBC (4.1-5.3) 10^6/u L Hgb (11.5-15.3) g/dL Hct (37.0-47.0) % MCV (81-99) fL MCH (28.0-34.0) pg MCHC (30.0-36.0) g/dL RDW (12.1-15.1) % Plt Count (130-400) 10^3/c mm MPV (7.4-10.4) fL Neut % (Auto) % Lymph % (Auto) % [place] % (Auto) % Eos % (Auto) % Baso % (Auto) % Neut # (Auto) (1.8-7.7) 10^3/u L Lymph # (Auto) (0.8-4.8) 10^3/u L [place] # (Auto) (0.2-0.9) 10^3/u L Eos # (Auto) (0.0-0.8) 10^3/u L Baso # (Auto) (0.0-0.1) 10^3/u L Nucleated RBC % (a uto) % Nucleated RBCs # /100WBC D-Dimer (0-0.59) ug/mIFE U Sodium (136-145) mmol/L Potassium (3.5-5.1) mmol/L Chloride (98-107) mmol/L Carbon Dioxide (22-29) mmol/L Anion Gap (5-19) BUN (6-20) mg/dL Creatinine (0.5-0.9) mg/dL GFR Calculation (90-130) mL/min Glucose (65-115) mg/dL Calculated Osmolal ity (285-295) mOsm/k g Calcium (8.5-10.5) mg/dL Total Bilirubin (0.15-1.2) mg/dL AST (0-32) U/L ALT (0-33) U/L Alkaline Phosphata se (35-105) IU/L Troponin T Baselin e 6 (0-10) ng/L Total Protein (6.6-8.7) g/dL Albumin (3.5-5.2) g/dL Globulin (1.3-4.6) g/dL Imaging Data^: CXR: Attestation: I personally reviewed and interpreted this imaging study as follows: My impression: No acute cardiopulmonary findings. EKG Data^: EKG 1: Attestation: I personally reviewed and interpreted this EKG as follows: EKG Interpretation Date: 03/28/20 EKG interpretation time: 20:49 Interpretation: Normal sinus rhythm at 83 beats a minute, nonspecific ST-T wave changes, normal axis, no blocks, normal intervals. Discharge Plan Discharge Patient Disposition: Home Clinical Impression: Bronchitis Condition: Stable Prescriptions: No Action albuterol sulfate 90 mcg/actuation Hfa Aerosol Inhaler 2 puff INHALATION 6XD PRN (Reason: Shortness Of Breath) RF: 0 Naprosyn 500 mg tablet 500 mg PO BID PRN (Reason: pain) Qty: 20 RF: 0 hydrocodone-acetaminophen 5-325 mg tablet 1 tab PO Q8H PRN (Reason: pain) Qty: 6 RF: 0 prednisone 50 mg tablet 50 mg PO DAILY Qty: 5 RF: 0 Discharge Orders: Discharge Order (Routine); Ordered 03/28/20 Ordered By: Candy Carvajal Referrals: Tita Coleman MD [Physician] - 1-3 days Discharge Diet: Advance as tolerated Discharge Activity: Increase activity as tolerated Patient Instructions: Acute Bronchitis (ED) Activity Restrictions/Additional Instructions: Please return to the ER immediately for any of the signs or symptoms listed on your discharge instruction sheets, worsening/changing of your symptoms, you are not getting better as quickly as expected, or for ANY other cause or concerns. 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
[2020-03-28 21:31] LABS: Basophils # 0.1 10^3/uL (0.0-0.1); Basophils % 0.6 %; Eosinophils # 0.2 10^3/uL (0.0-0.8); Eosinophils % 1.9 %; Hematocrit 39.7 % (37.0-47.0); Hemoglobin 11.4 g/dL (11.5-15.3); Lymphocytes # 2.8 10^3/uL (0.8-4.8); Lymphocytes % 32.5 %; Mean Corpuscular HGB Conc 28.7 g/dL (30.0-36.0); Mean Corpuscular Hemoglobin 20.8 pg (28.0-34.0); Mean Corpuscular Volume 72.4 fL (81-99); Mean Platelet Volume 10.4 fL (7.4-10.4); Monocytes # 0.7 10^3/uL (0.2-0.9); Neutrophils # 4.83 10^3/uL (1.8-7.7); Neutrophils % 56.8 %; Nucleated Red Blood Cells % 0 %; Platelet Count 433 10^3/cmm (130-400); Red Blood Count 5.48 10^6/uL (4.1-5.3); Red Cell Distribution Width 17.8 % (12.1-15.1); White Blood Count 8.5 10^3/uL (4.0-10.0)
[2020-03-28 21:52] LABS: D Dimer 0.44 ug/mIFEU (0-0.59)
[2020-03-28 21:58] LABS: Alanine Aminotransferase 14 U/L (0-33); Albumin Level 4.6 g/dL (3.5-5.2); Alkaline Phosphatase 79 IU/L (35-105); Anion Gap 16.7 (5-19); Aspartate Amino Transferase 17 U/L (0-32); Blood Urea Nitrogen 15 mg/dL (6-20); Calcium 9.7 mg/dL (8.5-10.5); Carbon Dioxide 23 mmol/L (22-29); Chloride 103 mmol/L (98-107); Globulin 3.4 g/dL (1.3-4.6); Glomerular Filtration Rate 97.6 mL/min (90-130); Glucose 86 mg/dL (65-115); Osmolality Calculated 288 mOsm/kg (285-295); Potassium 3.7 mmol/L (3.5-5.1); Sodium 139 mmol/L (136-145); Total Bilirubin 0.3 mg/dL (0.15-1.2)
[2020-03-28 22:00] VITALS: PULSE 76; RESP 18; O2SAT 100
[2020-03-28 22:00] LABS: Troponin(5th) Baseline 6 ng/L (0-10)
[2020-03-28] MEDS: ipratropium-albuterol 3 mL Neb 9 ML INHALATION (22:00)
[2020-03-28 22:07] VITALS: PULSE 85
[2020-03-28 23:07] VITALS: BP 128/72; PULSE 99; RESP 18; O2SAT 97
== END 2020-03-28 23:08 | disposition home or self-care (01) ==
PROVIDERS: Emergency Medicine; Emergency Provider Emergency Medicine
DX: J40 Bronchitis, not specified as acute or chronic (principal)
CPT/HCPCS: 12345; 36415; 71045; 80053; 84484; 85025; 85378; 93005; 94640; 96374; 96375; 99282; 99284; J2930

== ENCOUNTER 2020-04-16 18:26 | Emergency (ER) | payer BC, SELFPAY ==
[2020-04-16 19:02] VITALS: BP 128/89; PULSE 88; RESP 18; TEMP 36.7; O2SAT 98; BMI 40.3
[2020-04-16 19:24] VITALS: PULSE 62; RESP 18; O2SAT 99
--- NOTE | 2020-04-16 22:13 | W.ED.GENADLT ---
HPI - General Adult General: Chief complaint: Upper Respiratory Infection Stated complaint: sore throat, ear ache Time Seen by Provider: 04/16/20 19:12 History of Present Illness: HPI narrative: Right ear hurts throat hurt since ear started hurting denies fever Onset (ago): day(s) Severity: mild Severity scale (1-10): 1 Quality: aching Associated symptoms: Reports no associated symptoms; Deny chest pain, dyspnea, headache(s), nausea, rash or vomiting Review of Systems Const: Denies: fever(s), chills or body aches Eyes: Denies: change in vision or blurry vision ENMT: Reports: throat pain, ear or mastoid pain and other; Denies: nasal congestion Card: Denies: chest pain or dyspnea on exertion Resp: Denies: dyspnea, productive cough or non-productive cough GI: Denies: abdominal pain, nausea or vomiting Musc: Denies: extremity pain Skin/Breast: Denies: rash Neuro: Denies: headache(s) Psych: Denies: anxiety or depression Brijesh/Lymph: Denies: easy bruising PFS ED PFSH: Medical History (Updated 04/16/20 @ 19:19 by RYLEE Benoit) No pertinent past medical history Social History Smoking and tobacco status: never smoked Female Reproductive History: Date of last menstrual period: 03/19/20 Physical Exam Const: COMMON NORMALS: no acute distress, average body habitus and patient oriented x3 HENMT: COMMON NORMALS: normocephalic HEAD & SCALP: normal to inspection and normocephalic FACE & SINUS: normal facial exam TYMPANIC MEMBRANE: TM abnormal TM laterality: right Details: bulging and erythematous Eye: COMMON NORMALS: conjunctivae normal GENERAL EYE: appearance normal, both eyes and all related structures CONJUNCTIVA: Yes conjunctivae normal Neck/C-Spine: COMMON NORMALS: no JVD Chest: COMMONS NORMALS: normal inspection of the chest Resp: COMMON NORMALS: normal respiratory effort and clear to auscultation bilaterally AUSCULTATION: clear to auscultation bilaterally Cardio: COMMON NORMALS: no JVD, regular rate and regular rhythm RATE: regular rate RHYTHM: regular rhythm GI: COMMON NORMALS: Normal to inspection, nondistended, normoactive bowel sounds present Extremity: COMMON NORMALS: normal to inspection and full ROM Neuro: COMMON NORMALS: patient oriented x3 Course Vital Signs: Vital signs: Vital Signs Temperature 98.1 F 04/16/20 19:02 Pulse Rate 62 04/16/20 19:24 Respiratory Rate 18 04/16/20 19:24 Blood Pressure 128/89 04/16/20 19:02 Pulse Oximetry 99 04/16/20 19:24 Discharge Plan Discharge Patient Disposition: Home Clinical Impression: Acute otitis media Qualifiers: Otitis media type: serous Laterality: right Recurrence: recurrent Qualified Code(s): H65.04 - Acute serous otitis media, recurrent, right ear Condition: Stable Prescriptions: New ciprofloxacin HCl 500 mg tablet 500 mg PO BID Qty: 14 RF: 0 No Action albuterol sulfate [ProAir HFA] 90 mcg/actuation HFA aerosol inhaler 2 puff INHALATION Q6H PRN (Reason: shortness of breath or wheezing) Qty: 8.5 RF: 0 Discharge Orders: Discharge Order (Routine); Ordered 04/16/20 Ordered By: Rajinder Leavitt Discharge Diet: Usual diet Discharge Activity: Increase activity as tolerated Patient Instructions: Otitis Media (ED) Activity Restrictions/Additional Instructions: Follow-up with medical provider as directed. Take medications as prescribed. Return to the ER or your medical provider if condition worsens. Please read and understand discharge instructions. If any questions ask please. 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
== END 2020-04-16 19:26 | disposition home or self-care (01) ==
PROVIDERS: Emergency Provider Nurse Practitioner Family
DX: H65.04 Acute serous otitis media, recurrent, right ear (principal)
CPT/HCPCS: 12345; 99282

== ENCOUNTER 2020-05-21 18:02 | Emergency (ER) | payer BC, SELFPAY ==
[2020-05-21 18:06] VITALS: BP 130/83; PULSE 95; RESP 16; TEMP 36.5; O2SAT 98; BMI 35.5
--- NOTE | 2020-05-21 18:13 | W.ED.EXTPRO ---
HPI - Extremity Problem General: Chief complaint: Extremity Injury, Lower Stated complaint: left and righ ankle pain Time Seen by Provider: 05/21/20 18:13 History of Present Illness: HPI Narrative: Patient is a 29-year-old female comes to the ED with bilateral ankle pain. She denies any recent injury. She says pain started on Wednesday. Pain is located near the top of the foot and ankle patient is able to ambulate but it does cause some pain. She says she is taken ibuprofen for pain. Associated symptoms: Deny chest pain, fever(s) or rash Review of Systems Const: Denies: fever(s), chills or fatigue Eyes: Denies: change in vision or eye discomfort ENMT: Denies: throat pain, odynophagia, nasal discharge or nasal congestion Card: Denies: chest pain, palpitations, edema, swelling of feet/ankles, dyspnea on exertion or orthopnea Resp: Denies: dyspnea, productive cough or non-productive cough GI: Denies: abdominal pain, nausea, vomiting, diarrhea, constipation or hematochezia : Denies: flank pain, dysuria or hematuria Musc: Reports: extremity pain (Right and left ankle pain); Denies: neck pain, back pain or extremity swelling Skin/Breast: Denies: rash or new lesions Neuro: Denies: headache(s), numbness in extremities or weakness in extremities PFS ED PFSH: Medical History No pertinent past medical history Social History Smoking and tobacco status: never smoked Female Reproductive History: Date of last menstrual period: 03/19/20 Physical Exam Const: COMMON NORMALS: no acute distress, patient oriented x3 and alert GENERAL APPEARANCE: cooperative and comfortable HENMT: COMMON NORMALS: normocephalic HEAD & SCALP: normocephalic MOUTH: Normal oral and palatal mucosa present THROAT: posterior oropharynx normal and uvula midline Neck/C-Spine: COMMON NORMALS: supple GENERAL: Yes normal visual inspection Resp: COMMON NORMALS: normal respiratory effort, No retractions, No use of accessory muscles and clear to auscultation bilaterally AUSCULTATION: clear to auscultation bilaterally Cardio: COMMON NORMALS: regular rate, regular rhythm, S1 normal heart sound present, S2 normal heart sound present, No gallops present (Cardio), No clicks present (Cardio), No murmurs present (Cardio) and Peripheral pulses 2+ throughout RATE: regular rate RHYTHM: regular rhythm HEART SOUNDS: S1 normal heart sound present and S2 normal heart sound present PERIPHERAL PULSES: Peripheral pulses 2+ throughout GI: COMMON NORMALS: Normal to inspection, nondistended, normoactive bowel sounds present, Soft to palpation, non-tender and no masses PALPATION: Yes Soft to palpation : COMMON NORMALS: Yes no CVA tenderness BLADDER/KIDNEY EXAM: Yes no CVA tenderness Back/Pelvis: COMMON NORMALS: no CVA tenderness Extremity: COMMON NORMALS: normal to inspection and no pedal edema NARRATIVE EXTREMITY EXAM: Patient's right and left ankles appear normal and no visible deformity. No ecchymosis or edema. Mild tenderness upon palpation of right left ankle. Pedal pulse 2+ and sensation intact. Neuro: COMMON NORMALS: patient oriented x3 and moves all extremities SENSORIUM/ORIENTATION: Yes alert Skin: GENERAL SKIN EXAM: dry skin Course Vital Signs: Vital signs: Vital Signs Temperature 97.7 F 05/21/20 18:06 Pulse Rate 72 05/21/20 20:01 Respiratory Rate 14 05/21/20 20:01 Blood Pressure 108/75 05/21/20 20:01 Pulse Oximetry 97 05/21/20 20:01 MDM - Extremity (Nontraumatic) MDM Narrative: Medical decision making narrative: Patient is a 29-year-old female comes to the ED with bilateral ankle pain. She has had no acute injury or trauma to cause pain. Physical exam is normal- both ankles no edema or ecchymosis or deformity seen. Pedal pulse 2+ and some mild tenderness upon the anterior aspect of the ankle. X-ray of both right and left ankle showed no acute fractures or findings. Patient was discharged and told to rest ice and elevate. Take ibuprofen for pain. Follow-up with PCP in 7 to 10 days. Return to ED precautions given. Patient understood with plan. Imaging Data^: Xray Ortho: Attestation: I personally reviewed and interpreted this imaging study as follows: My impression: Right and left x-ray showed no acute fractures or findings. Discharge Plan Discharge Patient Disposition: Home Clinical Impression: Ankle joint pain Qualifiers: Laterality: bilateral Qualified Code(s): M25.571 - Pain in right ankle and joints of right foot Condition: Stable Prescriptions: No Action albuterol sulfate [ProAir HFA] 90 mcg/actuation HFA aerosol inhaler 2 puff INHALATION Q6H PRN (Reason: shortness of breath or wheezing) Qty: 8.5 RF: 0 ciprofloxacin HCl 500 mg tablet 500 mg PO BID Qty: 14 RF: 0 Discharge Orders: Discharge Order (Routine); Ordered 05/21/20 Ordered By: Adiel Mehta Discharge Diet: Regular Discharge Activity: Increase activity as tolerated Patient Instructions: Ankle Sprain (ED) Activity Restrictions/Additional Instructions: Follow-up with medical provider as directed in 7-10 days. Take [id number] ibuprofen up to 800 mg dose every 8 hours. Rest ice and elevate both legs. Return to the ER or your medical provider if condition worsens. Please read and understand discharge instructions. If any questions, please ask. 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
--- NOTE | 2020-05-21 18:15 | XR_ITS ---
WS: [id number] Right ankle, 3 views, 05/21/2020 Clinical Data: ankle injury and pain Comparison: None. Findings: No fractures or dislocations are seen. The ankle mortise is normal. The talus and calcaneus are unrem arkable. No soft tissue swelling over the medial or lateral malleolus is seen. There are small calcifications adjacent to the lateral aspect of the talus but these are not fracture s. There is also calcification adjacent to the medial talus again not a fracture. There is a small Ac hilles spur. XR/XR ankle RT min 3V* [id number] Impression: Negative right ankle.
--- NOTE | 2020-05-21 18:15 | XR_ITS ---
WS: [id number] Left ankle, 3 views, 05/21/2020 Clinical Data: ankle injury and pain Comparison: None. Findings: No fractures or dislocations are seen. The ankle mortise is normal. The talus and calcaneus are unrem arkable. No soft tissue swelling over the medial or lateral malleolus is seen. There is a small plantar spur. XR/XR ankle LT min 3V* [id number] Impression: Negative left ankle.
[2020-05-21] MEDS: HYDROcodone-acetaminophen 5-325 mg Tablet 1 TAB PO (18:39)
[2020-05-21 20:01] VITALS: BP 108/75; PULSE 72; RESP 14; O2SAT 97
== END 2020-05-21 20:02 | disposition home or self-care (01) ==
PROVIDERS: Emergency Provider Physician Assistant
DX: M25.571 Pain in right ankle and joints of right foot (principal); M25.572 Pain in left ankle and joints of left foot
CPT/HCPCS: 12345; 73610; 99281; 99283

== ENCOUNTER 2020-05-27 11:00 | Emergency (ER) | payer BC, SELFPAY ==
[2020-05-27 11:21] VITALS: BP 124/79; PULSE 80; RESP 18; TEMP 36.7; O2SAT 99; BMI 36.3
[2020-05-27 11:46] VITALS: PULSE 88; RESP 16; O2SAT 97
--- NOTE | 2020-05-27 12:10 | W.ED.COVID ---
HPI - COVID General: Chief Complaint: COVID symptoms Stated Complaint: Fever/SOB Time Seen by Provider: 05/27/20 11:28 Source: patient Mode of arrival: ambulatory Limitations: no limitations Triage information: No fever, cough or shortness of breath. No known COVID + exposure last 14 days History of Present Illness: HPI Narrative: Patient is a 29-year-old female patient with a history of asthma who presents to the emergency department with complaints of a fever. She had an episode of vomiting yesterday and has not had any since then. She does have a mild sore throat and loss of smell. She went to work today and her temperature was 100 degrees so she was sent to the emergency department for evaluation. She denies any cough, difficulty breathing, body aches or chills. She is not requiring oxygen. No Covid exposure that she is aware of however there is a high community spread of the infection currently. MD complaint: has COVID symptoms Prior covid testing: yes, results known COVID 19 common symptoms: positive fever(s), loss of sense of smell and/or taste and throat pain; negative chills, cough, non-productive cough, productive cough, dyspnea, fatigue, body aches, headache(s), nasal congestion, nausea, vomiting or diarrhea COVID 19 other sytmptoms: negative chest pressure, chest pain, pleuritic pain, requiring oxygen, requiring more oxygen, respiratory distress, cyanosis, lethargy, confusion, new neurological complaints or other concerning symptoms Onset (ago): day(s) (1) Severity: mild Pertinent comorbid conditions: COPD/respiratory disease (asthma) Treatment prior to arrival: none COVID Results: SARS-CoV-2 RNA (RT-PCR) Not detected (NOT DETECTED) 03/27/20 18:39 03/27/20 Nasal/Oral Coronavirus 2019 PCR Pending 05/27/20 12:20 05/27/20 Review of Systems General: Reports: 10 or more systems reviewed and unremarkable except in HPI and below Const: Reports: fever(s); Denies: chills, body aches or fatigue Eyes: Denies: change in vision or blurry vision ENMT: Reports: throat pain; Denies: nasal congestion Card: Denies: chest pain Resp: Denies: dyspnea, productive cough or non-productive cough GI: Denies: nausea, vomiting or diarrhea : Denies: flank pain, difficulty voiding, dysuria, urinary frequency, urinary urgency or urinary hesitancy Musc: Denies: neck pain, back pain or extremity swelling Skin/Breast: Denies: rash, pruritus or erythema Neuro: Denies: headache(s) or confusion Endo: Denies: polyuria, polydipsia or tired all the time PFSH ED PFSH: Medical History No pertinent past medical history Social History Smoking and tobacco status: never smoked Female Reproductive History: Date of last menstrual period: 05/09/20 Physical Exam Const: COMMON NORMALS: no acute distress, average body habitus, patient oriented x3, no limitations, healthy appearing, alert and well nourished HENMT: COMMON NORMALS: normocephalic, atraumatic, EAC's normal, TM's normal bilaterally and moist oral mucous membranes HEAD & SCALP: normocephalic and atraumatic EXTERNAL AUDITORY CANAL: EAC's normal TYMPANIC MEMBRANE: TM's normal bilaterally MOUTH: Normal oral and palatal mucosa present THROAT: posterior oropharynx normal and tonsils normal Eye: COMMON NORMALS: Equal, round and reactive pupils present, EOMs intact bilaterally, conjunctivae normal and no scleral icterus CONJUNCTIVA: Yes conjunctivae normal PUPIL: Yes Equal, round and reactive pupils present Neck/C-Spine: COMMON NORMALS: no meningeal signs and no JVD Cardio: COMMON NORMALS: no JVD, regular rate, regular rhythm, S1 normal heart sound present, S2 normal heart sound present, No gallops present (Cardio), No clicks present (Cardio), No murmurs present (Cardio), No rub (Cardio) and Peripheral pulses 2+ throughout RATE: regular rate RHYTHM: regular rhythm HEART SOUNDS: S1 normal heart sound present and S2 normal heart sound present PERIPHERAL PULSES: Peripheral pulses 2+ throughout GI: COMMON NORMALS: Normal to inspection, nondistended, normoactive bowel sounds present, Soft to palpation, non-tender, No hepatosplenomegaly present, no masses and no bruits PALPATION: Yes Soft to palpation and Yes No hepatosplenomegaly present : COMMON NORMALS: Yes no CVA tenderness BLADDER/KIDNEY EXAM: Yes no CVA tenderness Back/Pelvis: COMMON NORMALS: no CVA tenderness Extremity: COMMON NORMALS: normal to inspection, full ROM, capillary refill normal, no calf tenderness and no pedal edema Neuro: COMMON NORMALS: patient oriented x3 SENSORIUM/ORIENTATION: Yes alert MENINGEAL SIGNS: Yes no meningeal signs Skin: COMMON NORMALS: no rashes or lesions noted, no wounds, turgor normal, no jaundice, no petechiae and no mottling GENERAL SKIN EXAM: no rashes or lesions noted and turgor normal Course Reevaluation(s): Reevaluation #1: Discussed her lab findings with her. Negative influenza. Explained that the Covid test was going to take a few days to come back. But she is not hypoxic and has no other concerning symptoms or signs she she will be discharged home. She is advised to self isolate for 14 days if she has concerns for Covid-19. She voiced understanding and is in agreement with the plan. Time: 13:05 Vital Signs: Vital signs: Vital Signs Temperature 98.0 F 05/27/20 11:21 Pulse Rate 88 05/27/20 13:15 Respiratory Rate 16 05/27/20 13:15 Blood Pressure 134/88 05/27/20 13:15 Pulse Oximetry 99 05/27/20 13:15 MDM - COVID MDM Narrative Medical decision making narrative: 29-year-old female patient with only very mild symptoms who was sent to the emergency department from work because she had a low-grade temperature at work. The patient's only symptoms were mild sore throat and loss of smell. Evaluation in the emergency department is unremarkable with normal vital signs including oxygen saturation between 97% and 100 on room air. Examination was unremarkable and she was tested for Covid 19 as well as influenza. Influenza was negative and she is discharged home. She will be contacted with the results of the Covid test when it is available. She is advised to self isolate for 14 days. Differential Diagnosis Differential diagnosis: Likely COVID 19, influenza and other viral infection Medical Records Attestation: I reviewed the patient's medical records. Lab Data Attestation: I reviewed the patient's lab results. Labs: Lab Results 05/27/20 Range/Units 12:20 Influenza Type A Ag Negative (Negative) Influenza Type B Ag Negative (Negative) COVID Results: SARS-CoV-2 RNA (RT-PCR) Not detected (NOT DETECTED) 03/27/20 18:39 03/27/20 Nasal/Oral Coronavirus 2019 PCR Pending 05/27/20 12:20 05/27/20 Discharge Plan Discharge Patient Disposition: Home Clinical Impression: Viral illness Condition: Stable Prescriptions: Continued albuterol sulfate [ProAir HFA] 90 mcg/actuation HFA aerosol inhaler 2 puff INHALATION Q6H PRN (Reason: shortness of breath or wheezing) Qty: 8.5 RF: 0 Tylenol Extra Strength 500 mg Tablet 1,000 mg PO PRN RF: 0 ibuprofen 200 mg Tablet 800 mg PO PRN RF: 0 Discharge Orders: Discharge Order (Routine); Ordered 05/27/20 Ordered By: Rosa Barnes Discharge Diet: Usual diet Discharge Activity: Increase activity as tolerated Patient Instructions: Viral Syndrome (ED) Activity Restrictions/Additional Instructions: Return for any new or worsening symptoms. Follow-up with your primary care provider within 3 days. You will be contacted with the results of your Covid test that has been sent out. It takes about 2 days for the results to come back. 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
[2020-05-27 12:24] VITALS: PULSE 86; RESP 17; O2SAT 99
[2020-05-27 13:00] LABS: Influenza A by IFA Negative (Negative); Influenza B by IFA Negative (Negative)
[2020-05-27 13:15] VITALS: BP 134/88; PULSE 88; RESP 16; O2SAT 99
[2020-05-29 14:52] LABS: Coronavirus Lab Test PTC Negative
--- NOTE | 2020-05-30 08:20 | PC.NURSE ---
pt contacted and informed of covid test result
== END 2020-05-27 13:17 | disposition home or self-care (01) ==
PROVIDERS: Emergency Provider Family Medicine
DX: B34.9 Viral infection, unspecified (principal); Z20.828 Contact with and (suspected) exposure to other viral communicable diseases
CPT/HCPCS: 12345; 87635; 87804; 99282

== ENCOUNTER 2020-07-01 17:12 | Emergency (ER) | payer BC, SELFPAY ==
[2020-07-01 17:35] VITALS: BP 115/69; PULSE 109; RESP 14; TEMP 36.7; O2SAT 98; BMI 33.9
--- NOTE | 2020-07-01 21:07 | XRR_ITS ---
PROCEDURE INFORMATION: Exam: XR Chest, 2 Views Exam date and time: 07/01/2020 9:27 PM Age: 29 years old Clinical indication: Condition or disease; Lung condition and disease; Asthma; Severity not specified; Shortness of breath; Additional info: Asthma, cough, SOB TECHNIQUE: Imaging protocol: XR of the chest Views: 2 views. COMPARISON: CR XR chest 1V portable [id number] 03/28/2020 6:24 PM FINDINGS: Lungs: Hypoinflation, interstitial prominence, and mild basilar airspace disease. Pleural space: No significant pleural effusion. Heart/Mediastinum: No cardiomegaly. Bones/joints: Unremarkable. XR/XR chest 2V* [id number] IMPRESSION: Hypoinflation, interstitial prominence, and mild basilar airspace disease.
--- NOTE | 2020-07-01 21:11 | W.ED.ASTHMA ---
HPI - Asthma General: Chief Complaint: Asthma Stated Complaint: ASTHMA ATTACK Time Seen by Provider: 07/01/20 20:57 Source: patient and EMS Mode of arrival: EMS Limitations: no limitations History of Present Illness: HPI Narrative: 29-year-old female patient presents to the emergency department with acute asthma flare. She reports was asleep at the onset of asthma attack. She reports took 5 puffs of her albuterol inhaler. By the time she got to the ED, symptoms had improved. She was no longer in distress. She reports was scared. 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 She reports history of asthma flare with previous flare approximately 2 months ago. She does not have a primary care provider. She denies fever chills or chest pain upon exam. MD complaint: asthma attack , shortness of breath and wheezing Onset (ago): hour(s) (6) Severity: moderate Context: exercise and cleaning product exposure Associated symptoms: Reports no associated symptoms; Deny chest pain, fever(s), non-productive cough or productive cough Asthma History: childhood onset Treatments Prior to Arrival: inhaled bronchodilator Review of Systems General: Reports: 10 or more systems reviewed and unremarkable except in HPI and below Const: Denies: fever(s), chills or diaphoresis Eyes: Denies: blurry vision, eye discomfort, eye redness or yellow eyes ENMT: Denies: throat pain, uvular edema, dental pain, disequilibrium, nasal discharge, nasal congestion, nasal obstruction or post nasal drip Card: Denies: chest pain, palpitations, irregular heart rhythm, swelling of feet/ankles or dyspnea on exertion Resp: Reports: dyspnea and wheezing; Denies: productive cough, non-productive cough, pain on inspiration, change in phlegm color or chest congestion GI: Denies: abdominal pain, nausea, vomiting or dysphagia : Denies: difficulty voiding or dysuria Musc: Denies: neck pain, back pain, joint pain or joint warmth Skin/Breast: Denies: rash or pruritus Neuro: Denies: headache(s), weakness in extremities or behavioral changes Psych: Denies: anxiety or depression Brijesh/Lymph: Denies: easy bruising PFSH ED PFSH: Medical History No pertinent past medical history Social History Smoking and tobacco status: never smoked Female Reproductive History: Date of last menstrual period: 05/09/20 Physical Exam Const: COMMON NORMALS: no acute distress, patient oriented x3, healthy appearing, alert and well nourished EXAM LIMITATIONS: no altered mental status and no physical limitations GENERAL APPEARANCE: cooperative, comfortable, well kempt, well developed and well hydrated; not anxious, not combative and not ill appearing NUTRITIONAL APPEARANCE: overweight ORIENTATION/CONSCIOUSNESS: Yes awake, Yes oriented to person, Yes oriented to place and Yes oriented to time; not confused HENMT: COMMON NORMALS: normocephalic, atraumatic, Normal external nose present and moist oral mucous membranes HEAD & SCALP: normal to inspection, normocephalic and atraumatic FACE & SINUS: normal facial exam and face symmetric; no edema NOSE: Normal external nose present and No nasal polyps present MOUTH: Normal oral and palatal mucosa present, lip normal and tongue normal THROAT: posterior oropharynx normal; no uvular edema Eye: COMMON NORMALS: Equal, round and reactive pupils present, EOMs intact bilaterally and conjunctivae normal GENERAL EYE: appearance normal, both eyes and all related structures CONJUNCTIVA: Yes conjunctivae normal SCLERA: sclerae normal PUPIL: Yes Equal, round and reactive pupils present Neck/C-Spine: COMMON NORMALS: full ROM and no lymphadenopathy GENERAL: Yes normal visual inspection and Yes trachea midline CERVICAL SPINE: Yes cervical ROM normal Lymph: LYMPHATIC: no lymphadenopathy noted Chest: COMMONS NORMALS: normal inspection of the chest and normal palpation of entire chest wall Resp: COMMON NORMALS: normal respiratory effort, No retractions, No use of accessory muscles and clear to auscultation bilaterally EFFORT & INSPECTION: Yes able to speak in complete sentences AUSCULTATION: clear to auscultation bilaterally and wheezes (scattered) throughout Cardio: COMMON NORMALS: regular rhythm, S1 normal heart sound present, S2 normal heart sound present and Peripheral pulses 2+ throughout RHYTHM: regular rhythm HEART SOUNDS: S1 normal heart sound present and S2 normal heart sound present PERIPHERAL PULSES: Peripheral pulses 2+ throughout GI: COMMON NORMALS: Soft to palpation and non-tender INSPECTION: Yes normal to inspection PALPATION: Yes Soft to palpation : COMMON NORMALS: Yes no CVA tenderness BLADDER/KIDNEY EXAM: Yes no CVA tenderness Back/Pelvis: COMMON NORMALS: no CVA tenderness and thoracic and lumbar spine normal to inspection Extremity: COMMON NORMALS: normal to inspection and capillary refill normal Neuro: COMMON NORMALS: patient oriented x3 and no focal motor deficits SENSORIUM/ORIENTATION: Yes alert, Yes oriented to person, Yes oriented to place and Yes oriented to time Psych: COMMON NORMALS: mental status grossly normal, Normal thought process present and cooperative APPEARANCE: Yes well kempt ACTIVITY/MOTOR BEHAVIOR: Yes appropriate eye contact THOUGHT PROCESS: Normal thought process present Skin: COMMON NORMALS: no rashes or lesions noted and turgor normal GENERAL SKIN EXAM: no rashes or lesions noted and turgor normal Course ED course: 29-year-old female patient presents to the emergency department with acute asthma attack. Arrived via EMS, medication not provided during transport. She reports 5 puffs of her albuterol inhaler prior to arrival. She had scattered wheezing appreciated, chest x-ray without acute findings; however, pending radiologist final read. Albuterol, Flovent and prednisone did clear wheezing, she reports felt better and wanted to go home. O2 saturation remained 98 to 99% on room air. She was in no distress. Advise follow-up with primary care physician, referral to social economist will assist with this. Vital Signs: Vital signs: Vital Signs Temperature 98.0 F 07/01/20 17:35 Pulse Rate 91 07/01/20 22:15 Respiratory Rate 18 07/01/20 22:15 Blood Pressure 111/77 07/01/20 22:15 Pulse Oximetry 98 07/01/20 22:15 Discharge Plan Discharge Patient Disposition: Home Clinical Impression: Asthma exacerbation Qualifiers: Asthma severity: moderate Asthma persistence: unspecified Qualified Code(s): J45.901 - Unspecified asthma with (acute) exacerbation Condition: Stable Prescriptions: New prednisone 20 mg tablet 20 mg PO BID 5 Days Qty: 10 RF: 0 No Action albuterol sulfate [ProAir HFA] 90 mcg/actuation HFA aerosol inhaler 2 puff INHALATION Q6H PRN (Reason: shortness of breath or wheezing) Qty: 8.5 RF: 0 Tylenol Extra Strength 500 mg Tablet 1,000 mg PO PRN RF: 0 ibuprofen 200 mg Tablet 800 mg PO PRN RF: 0 Discharge Orders: Discharge ED (Routine); Ordered 07/01/20 Ordered By: Pili Preciado Discharge Diet: Usual diet Discharge Activity: Resume usual activity Patient Instructions: Asthma (ED), Moderate and Severe Persistent Asthma (ED), How to Use a Metered-Dose Inhaler with a Spacer (ED) Activity Restrictions/Additional Instructions: Take prednisone as directed, take with food Use inhalers as instructed, remember, Flovent is not your rescue inhaler Use albuterol as needed for shortness of breath/difficulty breathing/wheezing. Return to the emergency department if you develop difficulty breathing, inability to catch your breath or worsening symptoms such as lethargy. Follow-up with your primary care provider in 1 to 2 weeks for asthma control, social economist will assist you with primary care provider placement. 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
[2020-07-01 21:27] VITALS: BP 120/84; PULSE 91; RESP 18; O2SAT 97
[2020-07-01] MEDS: predniSONE 20 mg Tablet PO (21:40)
[2020-07-01] MEDS: albuterol 8 gm MDI 2 PUFF INHALATION (21:57)
[2020-07-01 21:59] VITALS: PULSE 99; RESP 16; O2SAT 95
[2020-07-01 22:15] VITALS: BP 111/77; PULSE 91; RESP 18; O2SAT 98
--- NOTE | 2020-07-08 13:00 | DCPLANNER ---
donor relations manager had message to speak with patient about getting established with a primary care physician. donor relations manager called phone number [phone], unable to speak with patient at this time, a voicemail was left for patient to return mental health case manager phone call.
== END 2020-07-01 22:17 | disposition home or self-care (01) ==
PROVIDERS: Emergency Provider Nurse Practitioner Family
DX: J45.901 Unspecified asthma with (acute) exacerbation (principal)
CPT/HCPCS: 12345; 71046; 94640; 99281; 99283; J3535; J7512

== ENCOUNTER 2020-07-28 19:20 | Emergency (ER) | payer BC, SELFPAY ==
[2020-07-28 20:13] VITALS: BP 115/74; PULSE 98; RESP 18; TEMP 36.7; O2SAT 99; BMI 40.3
--- NOTE | 2020-07-28 20:34 | W.ED.SOB ---
HPI - SOB/Dyspnea General: Chief Complaint: Shortness of Breath/Dyspnea Stated Complaint: asthma/chest tightness Time Seen by Provider: 07/28/20 20:24 Source: patient Mode of arrival: ambulatory Limitations: no limitations History of Present Illness: HPI Narrative: Patient is a 29-year-old female who presents to ED today with a complaint of shortness of breath. Patient tells me she has a history of asthma and takes albuterol 2 puffs every 4 hours. She states she ran out of her inhaler a few hours ago. She has no other complaints at this time. She denies chest pain or difficulty breathing. Patient's vital signs are stable. Clinically she looks in no acute distress. She has not been running fevers. No current or recent URI illnesses. MD elicited complaint: shortness of breath Pertinent past history: asthma Onset (ago): hour(s) Severity: mild Associated symptoms: Deny chest congestion, chest pain, fever(s) or hemoptysis Review of Systems Const: Denies: fever(s), chills, body aches or fatigue ENMT: Denies: odynophagia Card: Denies: chest pain Resp: Reports: dyspnea; Denies: productive cough, non-productive cough, wheezing, stridor, pain on inspiration, hemoptysis or chest congestion Musc: Denies: neck pain Neuro: Denies: headache(s) PFS ED PFSH: Medical History No pertinent past medical history Social History Smoking and tobacco status: never smoked Female Reproductive History: Date of last menstrual period: 05/09/20 Physical Exam Const: COMMON NORMALS: no acute distress, patient oriented x3, no limitations and alert GENERAL APPEARANCE: cooperative NUTRITIONAL APPEARANCE: obese ORIENTATION/CONSCIOUSNESS: Yes awake Resp: COMMON NORMALS: normal respiratory effort and clear to auscultation bilaterally AUSCULTATION: clear to auscultation bilaterally Cardio: COMMON NORMALS: regular rate and regular rhythm RATE: regular rate RHYTHM: regular rhythm Neuro: COMMON NORMALS: patient oriented x3 SENSORIUM/ORIENTATION: Yes alert Course Vital Signs: Vital signs: Vital Signs Temperature 98.0 F 07/28/20 20:13 Pulse Rate 98 07/28/20 20:13 Respiratory Rate 18 07/28/20 20:13 Blood Pressure 115/74 07/28/20 20:13 Pulse Oximetry 99 07/28/20 20:13 MDM - SOB/Dyspnea MDM Narrative: Medical decision making narrative: Patient clinically is in no respiratory distress. Her vital signs are perfect. Her lung sounds are clear. Patient tells me she was diagnosed with asthma after an ED visit and prescribed the albuterol and patient has been using ever since. I question whether she actually has true asthma. Recommend she follow-up with primary care for further evaluation and possibly obtain PFTs to see if continuing the albuterol would be indicated. Patient was given an albuterol inhaler during her visit here. Discharge Plan Discharge Patient Disposition: Home Clinical Impression: Dyspnea Qualifiers: Dyspnea type: unspecified Qualified Code(s): R06.00 - Dyspnea, unspecified Condition: Stable Prescriptions: No Action albuterol sulfate [ProAir HFA] 90 mcg/actuation HFA aerosol inhaler 2 puff INHALATION Q6H PRN (Reason: shortness of breath or wheezing) Qty: 8.5 RF: 0 Tylenol Extra Strength 500 mg Tablet 1,000 mg PO PRN RF: 0 ibuprofen 200 mg Tablet 800 mg PO PRN RF: 0 Discharge Orders: Discharge ED (Routine); Ordered 07/28/20 Ordered By: Lu Lott Activity Restrictions/Additional Instructions: As discussed please follow-up with primary care for further evaluation. Return to the emergency department for severe shortness of breath, difficulty breathing, chest pain, fevers, or any other concerns you may have. Coding Level of Care Code ED Senior Patrol Agent for Cassi Singh
[2020-07-28 20:40] VITALS: PULSE 84; RESP 18; O2SAT 98
[2020-07-28] MEDS: albuterol 8 gm MDI 2 PUFF INHALATION (20:40)
[2020-07-28 20:45] VITALS: PULSE 86
[2020-07-28 21:15] VITALS: RESP 14; O2SAT 100
--- NOTE | 2020-07-29 14:19 | DCPLANNER ---
pmp certified project manager had message to speak with patient about getting a primary care physician. pmp certified project manager spoke with patient about getting a primary care physician. Patient stated that she would like to be seen at [facility], bilingual patient support caseworker called and spoke with Clary, a follow up appointment was scheduled for Wednesday, August 02, 2020 at 8:30 with Sherly Pascual. pmp certified project manager called patient and informed patient of the scheduled appointment.
--- NOTE | 2020-08-15 14:37 | DCPLANNER ---
Patient had a follow up appointment scheduled for 08.02.20 with [facility] - patient did attend appointment.
== END 2020-07-28 20:52 | disposition home or self-care (01) ==
PROVIDERS: Emergency Provider Physician Assistant
DX: R06.00 Dyspnea, unspecified (principal)
CPT/HCPCS: 12345; 94640; 99281; 99283; J3535

== ENCOUNTER → 2020-08-17 13:17 | Outpatient (BNVA) | payer BC, SELFPAY | PROVIDERS: PCP Nurse Practitioner Family; Visit Provider Nurse Practitioner Family | DX: Z01.812 Encounter for preprocedural laboratory examination (principal); Z20.828 Contact with and (suspected) exposure to other viral communicable diseases | CPT/HCPCS: 87635 ==

== ENCOUNTER 2020-08-21 12:21 | Outpatient (CLI) | payer BC, SELFPAY ==
--- NOTE | 2020-08-21 14:08 | PFTS_ITS ---
Date of Study:08/21/20 Date of Dictation: MECHANICS: Forced vital capacity (FVC) is normal. Forced expiratory volume in one second (FEV1) is reduced. FEV1/FVC is reduced. FLOW VOLUME LOOP: It is clear to all lung volumes. LUNG VOLUMES: Not measured DIFFUSING CAPACITY FOR CARBON MONOXIDE: Not measured INTERPRETATION: The postbronchodilator spirometry is consistent with moderate airflow obstruction. There is no significant postbronchodilator response. MTDD
== END 2020-08-21 12:22 | disposition home or self-care (01) ==
LOC: RT 12:21
PROVIDERS: PCP Nurse Practitioner Family; Visit Provider Nurse Practitioner Family
DX: R06.00 Dyspnea, unspecified (principal)
CPT/HCPCS: 94060; J7611

== ENCOUNTER 2020-09-03 20:47 | Emergency (ER) | payer BC, SELFPAY ==
[2020-09-03 20:50] VITALS: BP 128/89; PULSE 114; RESP 18; TEMP 36.6; O2SAT 98; BMI 39.9
--- NOTE | 2020-09-03 21:34 | XR_ITS ---
WS: [id number] Exam: XR hip LT 2-3V wo/w pel* [id number] Date/Time of Exam: 09/03/2020 9:34 PM Reason For Exam: left hip pain s/p fall Findings: No fractures or bone anomalies are noted. No unusual soft tissue masses or calcifications are seen. The bony elements of the hip are in adequate alignment. XR/XR hip LT 2-3V wo/w pel* [id number] IMPRESSION: Negative left hip.
--- NOTE | 2020-09-03 22:10 | W.ED.EXTPRO ---
HPI - Extremity Problem General: Chief complaint: Extremity Injury, Lower Stated complaint: fall, left hip pain Time Seen by Provider: 09/03/20 21:30 Source: patient Mode of arrival: ambulatory Limitations: no limitations History of Present Illness: HPI Narrative: 29-year-old female patient presents to the emergency department with posterior left hip pain. She reports fell earlier today, while at work. States landed hard on her bottom. She reports pain with ambulation. She did not hit her head she is not complaining of neck pain. She states is not able to apply full pressure due to pain she experiences in the hip. She reports incident occurred at the [facility], she reports slipped on the ice while at work. Complaint: joint pain (lt hip) Pain Consistency: intermittent Location: left, lower extremity and other (hip) Quality: aching and dull Radiation: distal Relieving factors: rest Exacerbating factors: weight bearing and walking Associated symptoms: Reports no associated symptoms; Deny chest pain, fever(s) or rash Review of Systems General: Reports: 10 or more systems reviewed and unremarkable except in HPI and below Const: Denies: fever(s), chills or diaphoresis Eyes: Denies: blurry vision or eye redness ENMT: Denies: throat pain, dental pain or disequilibrium Card: Denies: chest pain, palpitations, irregular heart rhythm, swelling of feet/ankles or dyspnea on exertion Resp: Denies: dyspnea, productive cough, non-productive cough or wheezing GI: Denies: abdominal pain, nausea or vomiting : Denies: difficulty voiding or dysuria Musc: Reports: joint pain (left hip); Denies: neck pain, back pain, joint stiffness, muscle cramps or muscle weakness Skin/Breast: Denies: rash or pruritus Neuro: Denies: headache(s), weakness in extremities or behavioral changes Psych: Denies: anxiety or depression Brijesh/Lymph: Denies: easy bruising PFSH ED PFSH: Medical History No pertinent past medical history Social History Smoking and tobacco status: never smoked Female Reproductive History: Date of last menstrual period: 05/09/20 Physical Exam Const: COMMON NORMALS: no acute distress, patient oriented x3, healthy appearing and alert GENERAL APPEARANCE: cooperative, comfortable and well hydrated HENMT: COMMON NORMALS: normocephalic, Normal external nose present and moist oral mucous membranes HEAD & SCALP: normocephalic NOSE: Normal external nose present Eye: COMMON NORMALS: Equal, round and reactive pupils present and EOMs intact bilaterally GENERAL EYE: appearance normal, both eyes and all related structures PUPIL: Yes Equal, round and reactive pupils present Neck/C-Spine: COMMON NORMALS: full ROM and no lymphadenopathy GENERAL: Yes normal visual inspection and Yes trachea midline CERVICAL SPINE: Yes cervical ROM normal Lymph: LYMPHATIC: no lymphadenopathy noted Chest: COMMONS NORMALS: normal inspection of the chest Resp: COMMON NORMALS: normal respiratory effort and clear to auscultation bilaterally AUSCULTATION: clear to auscultation bilaterally Cardio: COMMON NORMALS: regular rhythm, S1 normal heart sound present, S2 normal heart sound present and Peripheral pulses 2+ throughout RHYTHM: regular rhythm HEART SOUNDS: S1 normal heart sound present and S2 normal heart sound present PERIPHERAL PULSES: Peripheral pulses 2+ throughout GI: COMMON NORMALS: Soft to palpation and non-tender INSPECTION: Yes normal to inspection PALPATION: Yes Soft to palpation : COMMON NORMALS: Yes no CVA tenderness BLADDER/KIDNEY EXAM: Yes no CVA tenderness Back/Pelvis: COMMON NORMALS: no CVA tenderness, thoracic and lumbar spine normal to inspection, no thoracic nor lumbar tenderness, thoraco-lumbar ROM normal and straight leg raise negative bilaterally THORACIC SPINE/UPPER BACK: Yes normal to inspection, Yes thoracic ROM normal, No paraspinal muscle tenderness and No paraspinal muscle spasm LUMBAR SPINE/LOWER BACK: Yes normal to inspection, Yes lumbar ROM normal, No paraspinal muscle tenderness and No paraspinal muscle spasm PELVIS: Yes buttocks normal SACROILIAC JOINTS: Yes SI joint(s) abnormal SI joint details: tender to palpation (left) SACRUM: no ecchymosis Extremity: COMMON NORMALS: normal to inspection, full ROM, capillary refill normal, no joint enlargement, no clubbing, cyanosis or edema, no calf tenderness and no pedal edema GENERAL: Yes normal exam except as noted OTHER: Full range of motion of the left lower extremity, hip knee and ankle noted, not able to reproduce pain, point tenderness to the left posterior hip/SI joint. Neuro: COMMON NORMALS: patient oriented x3 and no focal motor deficits SENSORIUM/ORIENTATION: Yes alert Psych: COMMON NORMALS: mental status grossly normal, Normal thought process present and cooperative ACTIVITY/MOTOR BEHAVIOR: Yes appropriate eye contact THOUGHT PROCESS: Normal thought process present Skin: COMMON NORMALS: no rashes or lesions noted and turgor normal GENERAL SKIN EXAM: no rashes or lesions noted and turgor normal Course Vital Signs: Vital signs: Vital Signs Temperature 97.9 F 09/03/20 20:50 Pulse Rate 99 09/03/20 22:30 Respiratory Rate 16 09/03/20 22:30 Blood Pressure 140/90 09/03/20 22:30 Pulse Oximetry 97 09/03/20 22:30 MDM - Extremity (Nontraumatic) Imaging Data^: Xray Ortho: My impression: Left hip series with pelvis view without acute abnormalities, acute fracture or acute abnormality not noted, formal radiology interpretation pending. Discharge Plan Discharge Patient Disposition: Home Clinical Impression: Contusion of hip, left Qualifiers: Encounter type: initial encounter Qualified Code(s): S70.02XA - Contusion of left hip, initial encounter Fall Qualifiers: Encounter type: initial encounter Qualified Code(s): W19.XXXA - Unspecified fall, initial encounter Condition: Stable Prescriptions: New IBU 600 mg tablet 600 mg PO TID PRN (Reason: pain) Qty: 20 RF: 0 No Action albuterol sulfate [ProAir HFA] 90 mcg/actuation HFA aerosol inhaler 2 puff INHALATION Q6H PRN (Reason: shortness of breath or wheezing) Qty: 8.5 RF: 0 Tylenol Extra Strength 500 mg Tablet 1,000 mg PO PRN RF: 0 ibuprofen 200 mg Tablet 800 mg PO PRN RF: 0 Discharge Orders: Discharge ED (Routine); Ordered 09/03/20 Ordered By: Pili Preciado Referrals: Sherly Mayer BUTTER FAT TESTER [Primary Care Provider] - Discharge Diet: Usual diet Discharge Activity: Limit activity as instructed Patient Instructions: Contusion in Adults (ED), Opioid Safety Activity Restrictions/Additional Instructions: Light duty x2 days, no heavy lifting or bending x2 days, Return to the emergency department if you develop numbness tingling of the left lower extremity or inability to apply pressure on the left leg while walking Follow-up with your primary care provider in 3 to 4 days if not improved Take ibuprofen with food to avoid upset stomach. Stand Alone Forms: Work/School Release Coding Level of Care Code ED Electric Motor Assembler And Tester for Chg Fwd Exam Comprehensive
[2020-09-03 22:30] VITALS: BP 140/90; PULSE 99; RESP 16; O2SAT 97
[2020-09-03] MEDS: ibuprofen 600 mg Tablet PO (22:59)
[2020-09-03 23:11] VITALS: BP 146/86; PULSE 103; RESP 16; TEMP 36.6; O2SAT 99
== END 2020-09-03 23:11 | disposition home or self-care (01) ==
PROVIDERS: Emergency Provider Nurse Practitioner Family; PCP Nurse Practitioner Family
DX: S70.02XA Contusion of left hip, initial encounter (principal); W00.0XXA Fall on same level due to ice and snow, initial encounter; Y99.0 Civilian activity done for income or pay
CPT/HCPCS: 73502; 99283

== ENCOUNTER 2020-11-12 16:49 | Emergency (ER) | payer BC, SELFPAY ==
[2020-11-12 17:24] VITALS: BP 144/82; PULSE 91; RESP 18; TEMP 37.1; O2SAT 100; BMI 41.9
--- NOTE | 2020-11-12 17:31 | ED_ITS ---
Documented by User: Hernandez Marcos DO 11/18/20 08:01 HPI - Nausea/Vomiting/Diarrhea General: Chief complaint: Nausea/Vomiting/Diarrhea Stated complaint: N/V Time Seen by Provider: 11/12/20 17:25 History of Present Illness: HPI Narrative: 30 yo male present to the ER complaining of n/v with small amounts of hematemesis over night. THis began suddenly overnight. Pt denies previous similar episodes. She also has not had a menstrual period in over 2 months. She has tried some tums/rolais with no releif. She also reports some dark stools recently but she has not seen any kirk blood. MD elicited complaint: nausea and vomiting Onset (ago): hour(s) Description of vomiting: watery and bilious Associated nausea: Yes Associated abdominal pain: Yes Location of pain: Epigastric Severity: mild Quality: cramping Exacerbating factors: none Relieving factors: none Associated symtoms: Reports nausea; Denies anxiety, bloating, change in vision, chest pain, cough, diaphoresis, decreased urine output, dizziness, dysuria, epistaxis, fatigue, fecal incontinence, fevers/chills, headache(s), anorexia, malaise, myalgias, numbness, palpitations, rash, short of breath, syncope, tenesmus, tinnitus or weakness Treatment prior to arrival: other OTC medicine Review of Systems Const: Denies: fatigue, malaise or diaphoresis Eyes: Denies: change in vision ENMT: Denies: tinnitus or epistaxis Card: Denies: chest pain, palpitations or syncope Resp: Denies: dyspnea, productive cough or non-productive cough GI: Reports: nausea; Denies: bloating or fecal incontinence : Denies: dysuria Skin/Breast: Denies: rash or pruritus Neuro: Denies: headache(s) or dizziness Psych: Denies: anxiety PFSH ED PFSH: Medical History No pertinent past medical history Social History Smoking and tobacco status: never smoked Female Reproductive History: Date of last menstrual period: 09/09/20 Physical Exam Const: COMMON NORMALS: no acute distress GENERAL APPEARANCE: cooperative and comfortable ORIENTATION/CONSCIOUSNESS: Yes awake, Yes oriented to person, Yes oriented to place and Yes oriented to time HENMT: COMMON NORMALS: normocephalic, atraumatic and hearing grossly normal bilaterally HEAD & SCALP: normocephalic and atraumatic Neck/C-Spine: COMMON NORMALS: no JVD Resp: COMMON NORMALS: normal respiratory effort, No retractions, No use of accessory muscles and clear to auscultation bilaterally AUSCULTATION: clear to auscultation bilaterally Cardio: COMMON NORMALS: no JVD, regular rate, regular rhythm and No murmurs present (Cardio) RATE: regular rate RHYTHM: regular rhythm GI: COMMON NORMALS: Soft to palpation and No hepatosplenomegaly present AU SCULTATION: Yes normoactive bowel sounds PALPATION: Yes Soft to palpation, No Tenderness to palpation present (GI), No Guarding due to palpation present (GI) and Yes No hepatosplenomegaly present Extremity: COMMON NORMALS: normal to inspection, capillary refill normal, no clubbing, cyanosis or edema, no calf tenderness and no pedal edema Neuro: SENSORIUM/ORIENTATION: Yes oriented to person, Yes oriented to place and Yes oriented to time Skin: COMMON NORMALS: no rashes or lesions noted GENERAL SKIN EXAM: no rashes or lesions noted Course Vital Signs: Vital signs: Vital Signs Temperature 98.7 F 11/12/20 17:24 Pulse Rate 97 11/12/20 19:47 Respiratory Rate 16 11/12/20 19:47 Blood Pressure 108/78 11/12/20 19:47 Pulse Oximetry 99 11/12/20 19:47 MDM - Nausea/Vomiting/Diarrhea MDM Narrative: Medical decision making narrative: Care turned over to Dr. Marr at change of shift Lab Data: Labs: Lab Results 11/12/20 11/12/20 11/12/20 Range/Units 18:24 18:24 18:24 WBC 7.3 (4.0-10.0) 10^3/ uL RBC 5.20 (4.1-5.3) 10^6/u L Hgb 11.1 L (11.5-15.3) g/dL Hct 40.7 (37.0-47.0) % MCV 78.3 L (81-99) fL MCH 21.3 L (28.0-34.0) pg MCHC 27.3 L (30.0-36.0) g/dL RDW 16.3 H (12.1-15.1) % Plt Count 379 (130-400) 10^3/c mm MPV 10.6 H (7.4-10.4) fL Neut % (Auto) 57.4 % Lymph % (Auto) 31.2 % Kimble % (Auto) 7.0 % Eos % (Auto) 3.6 % Baso % (Auto) 0.7 % Neut # (Auto) 4.16 (1.8-7.7) 10^3/u L Lymph # (Auto) 2.3 (0.8-4.8) 10^3/u L Kimble # (Auto) 0.5 (0.2-0.9) 10^3/u L Eos # (Auto) 0.3 (0.0-0.8) 10^3/u L Baso # (Auto) 0.1 (0.0-0.1) 10^3/u L Nucleated RBC % (a uto) 0 % Nucleated RBCs # 0.0 /100WBC Sodium 137 (136-145) mmol/L Potassium 3.9 (3.5-5.1) mmol/L Chloride 103 (98-107) mmol/L Carbon Dioxide 24 (22-29) mmol/L Anion Gap 13.9 (5-19) BUN 9 (6-20) mg/dL Creatinine 0.5 (0.5-0.9) mg/dL GFR Calculation 143.0 H (90-130) mL/min Glucose 85 (65-115) mg/dL Calculated Osmolal ity 282 L (285-295) mOsm/k g Calcium 7.9 L (8.5-10.5) mg/dL Total Bilirubin 0.3 (0.15-1.2) mg/dL AST 16 (0-32) U/L ALT 13 (0-33) U/L Alkaline Phosphata se 92 (35-105) IU/L Total Protein 7.3 (6.6-8.7) g/dL Albumin 4.1 (3.5-5.2) g/dL Globulin 3.2 (1.3-4.6) g/dL HCG, Qual Negative (Negative) H. pylori IgG Anti body (Negative) 11/12/20 Range/Units 18:24 WBC (4.0-10.0) 10^3/ uL RBC (4.1-5.3) 10^6/u L Hgb (11.5-15.3) g/dL Hct (37.0-47.0) % MCV (81-99) fL MCH (28.0-34.0) pg MCHC (30.0-36.0) g/dL RDW (12.1-15.1) % Plt Count (130-400) 10^3/c mm MPV (7.4-10.4) fL Neut % (Auto) % Lymph % (Auto) % Kimble % (Auto) % Eos % (Auto) % Baso % (Auto) % Neut # (Auto) (1.8-7.7) 10^3/u L Lymph # (Auto) (0.8-4.8) 10^3/u L Kimble # (Auto) (0.2-0.9) 10^3/u L Eos # (Auto) (0.0-0.8) 10^3/u L Baso # (Auto) (0.0-0.1) 10^3/u L Nucleated RBC % (a uto) % Nucleated RBCs # /100WBC Sodium (136-145) mmol/L Potassium (3.5-5.1) mmol/L Chloride (98-107) mmol/L Carbon Dioxide (22-29) mmol/L Anion Gap (5-19) BUN (6-20) mg/dL Creatinine (0.5-0.9) mg/dL GFR Calculation (90-130) mL/min Glucose (65-115) mg/dL Calculated Osmolal ity (285-295) mOsm/k g Calcium (8.5-10.5) mg/dL Total Bilirubin (0.15-1.2) mg/dL AST (0-32) U/L ALT (0-33) U/L Alkaline Phosphata se (35-105) IU/L Total Protein (6.6-8.7) g/dL Albumin (3.5-5.2) g/dL Globulin (1.3-4.6) g/dL HCG, Qual (Negative) H. pylori IgG Anti body Negative (Negative) Discharge Plan Discharge Patient Disposition: Home Clinical Impression: Vomiting Qualifiers: Vomiting type: unspecified Vomiting Intractability: non-intractable Nausea presence: with nausea Qualified Code(s): R11.2 - Nausea with vomiting, unspecified Abdominal pain Qualifiers: Abdominal location: epigastric Qualified Code(s): R10.13 - Epigastric pain Condition: Stable Prescriptions: New ondansetron 4 mg tablet,disintegrating 4 mg PO Q6H PRN (Reason: nausea and vomiting) Qty: 14 RF: 0 Protonix 40 mg tablet,delayed release (DR/EC) 40 mg PO DAILY Qty: 60 RF: 0 No Action albuterol sulfate [ProAir HFA] 90 mcg/actuation HFA aerosol inhaler 2 puff INHALATION Q6H PRN (Reason: shortness of breath or wheezing) Qty: 8.5 RF: 0 acetaminophen [Tylenol Extra Strength] 500 mg Tablet 1,000 - 2,000 mg PO PRN RF: 0 Tums 1 - 2 tab PO PRN RF: 0 Discharge Orders: Discharge ED (Routine); Ordered 11/12/20 Ordered By: Constantine Marr Referrals: Sherly Mayer FNP [Primary Care Provider] - 1-3 days Discharge Diet: Advance as tolerated Discharge Activity: Resume usual activity Patient Instructions: Acute Nausea and Vomiting (ED), Abdominal Pain (ED) Stand Alone Forms: Work/School Release Coding Level of Care Code ED Machine Tack Puller for Chg Fwd Exam Comprehensive Documented by User: Constantine Marr MD 11/12/20 19:10 HPI - Nausea/Vomiting/Diarrhea General: Chief complaint: Nausea/Vomiting/Diarrhea Stated complaint: N/V Time Seen by Provider: 11/12/20 17:25 PFSH ED PFSH: Medical History No pertinent past medical history Social History Smoking and tobacco status: never smoked Course Vital Signs: Vital signs: Vital Signs Temperature 98.7 F 11/12/20 17:24 Pulse Rate 97 11/12/20 19:47 Respiratory Rate 16 11/12/20 19:47 Blood Pressure 108/78 11/12/20 19:47 Pulse Oximetry 99 11/12/20 19:47 MDM - Nausea/Vomiting/Diarrhea MDM Narrative: Medical decision making narrative: Leila presents here with vomiting that is likely reflux and viral in origin. Her pain is much improved and her exam here at discharge is benign with no tenderness. Patient tolerated p.o. here. Patient's blood work is all normal. Patient prescribed Zofran and Protonix. She is to follow-up with PCP and return if worsening. Lab Data: Labs: Lab Results 11/12/20 11/12/20 11/12/20 Range/Units 18:24 18:24 18:24 WBC 7.3 (4.0-10.0) 10^3/ uL RBC 5.20 (4.1-5.3) 10^6/u L Hgb 11.1 L (11.5-15.3) g/dL Hct 40.7 (37.0-47.0) % MCV 78.3 L (81-99) fL MCH 21.3 L (28.0-34.0) pg MCHC 27.3 L (30.0-36.0) g/dL RDW 16.3 H (12.1-15.1) % Plt Count 379 (130-400) 10^3/c mm MPV 10.6 H (7.4-10.4) fL Neut % (Auto) 57.4 % Lymph % (Auto) 31.2 % Kimble % (Auto) 7.0 % Eos % (Auto) 3.6 % Baso % (Auto) 0.7 % Neut # (Auto) 4.16 (1.8-7.7) 10^3/u L Lymph # (Auto) 2.3 (0.8-4.8) 10^3/u L Kimble # (Auto) 0.5 (0.2-0.9) 10^3/u L Eos # (Auto) 0.3 (0.0-0.8) 10^3/u L Baso # (Auto) 0.1 (0.0-0.1) 10^3/u L Nucleated RBC % (a uto) 0 % Nucleated RBCs # 0.0 /100WBC Sodium 137 (136-145) mmol/L Potassium 3.9 (3.5-5.1) mmol/L Chloride 103 (98-107) mmol/L Carbon Dioxide 24 (22-29) mmol/L Anion Gap 13.9 (5-19) BUN 9 (6-20) mg/dL Creatinine 0.5 (0.5-0.9) mg/dL GFR Calculation 143.0 H (90-130) mL/min Glucose 85 (65-115) mg/dL Calculated Osmolal ity 282 L (285-295) mOsm/k g Calcium 7.9 L (8.5-10.5) mg/dL Total Bilirubin 0.3 (0.15-1.2) mg/dL AST 16 (0-32) U/L ALT 13 (0-33) U/L Alkaline Phosphata se 92 (35-105) IU/L Total Protein 7.3 (6.6-8.7) g/dL Albumin 4.1 (3.5-5.2) g/dL Globulin 3.2 (1.3-4.6) g/dL HCG, Qual Negative (Negative) H. pylori IgG Anti body (Negative) 11/12/20 Range/Units 18:24 WBC (4.0-10.0) 10^3/ uL RBC (4.1-5.3) 10^6/u L Hgb (11.5-15.3) g/dL Hct (37.0-47.0) % MCV (81-99) fL MCH (28.0-34.0) pg MCHC (30.0-36.0) g/dL RDW (12.1-15.1) % Plt Count (130-400) 10^3/c mm MPV (7.4-10.4) fL Neut % (Auto) % Lymph % (Auto) % Kimble % (Auto) % Eos % (Auto) % Baso % (Auto) % Neut # (Auto) (1.8-7.7) 10^3/u L Lymph # (Auto) (0.8-4.8) 10^3/u L Kimble # (Auto) (0.2-0.9) 10^3/u L Eos # (Auto) (0.0-0.8) 10^3/u L Baso # (Auto) (0.0-0.1) 10^3/u L Nucleated RBC % (a uto) % Nucleated RBCs # /100WBC Sodium (136-145) mmol/L Potassium (3.5-5.1) mmol/L Chloride (98-107) mmol/L Carbon Dioxide (22-29) mmol/L Anion Gap (5-19) BUN (6-20) mg/dL Creatinine (0.5-0.9) mg/dL GFR Calculation (90-130) mL/min Glucose (65-115) mg/dL Calculated Osmolal ity (285-295) mOsm/k g Calcium (8.5-10.5) mg/dL Total Bilirubin (0.15-1.2) mg/dL AST (0-32) U/L ALT (0-33) U/L Alkaline Phosphata se (35-105) IU/L Total Protein (6.6-8.7) g/dL Albumin (3.5-5.2) g/dL Globulin (1.3-4.6) g/dL HCG, Qual (Negative) H. pylori IgG Anti body Negative (Negative) Discharge Plan Discharge Patient Disposition: Home Clinical Impression: Vomiting Qualifiers: Vomiting type: unspecified Vomiting Intractability: non-intractable Nausea presence: with nausea Qualified Code(s): R11.2 - Nausea with vomiting, unspecified Abdominal pain Qualifiers: Abdominal location: epigastric Qualified Code(s): R10.13 - Epigastric pain Condition: Stable Prescriptions: New ondansetron 4 mg tablet,disintegrating 4 mg PO Q6H PRN (Reason: nausea and vomiting) Qty: 14 RF: 0 Protonix 40 mg tablet,delayed release (DR/EC) 40 mg PO DAILY Qty: 60 RF: 0 No Action albuterol sulfate [ProAir HFA] 90 mcg/actuation HFA aerosol inhaler 2 puff INHALATION Q6H PRN (Reason: shortness of breath or wheezing) Qty: 8.5 RF: 0 acetaminophen [Tylenol Extra Strength] 500 mg Tablet 1,000 - 2,000 mg PO PRN RF: 0 Tums 1 - 2 tab PO PRN RF: 0 Discharge Orders: Discharge ED (Routine); Ordered 11/12/20 Ordered By: Constantine Marr Referrals: Sherly Mayer [employer] PHOTOGRAPHER [Primary Care Provider] - 1-3 days Discharge Diet: Advance as tolerated Discharge Activity: Resume usual activity Patient Instructions: Acute Nausea and Vomiting (ED), Abdominal Pain (ED) Stand Alone Forms: Work/School Release Coding Level of Care Code ED Machine Tack Puller for Katieg Fwd Exam Comprehensive
[2020-11-12] MEDS: lidocaine 2% viscous 15 ML, aluminum-mag hydrox-simethicon 30 ML, sucralfate oral liq 1 GM PO (17:49)
[2020-11-12 18:31] LABS: Basophils # 0.1 10^3/uL (0.0-0.1); Basophils % 0.7 %; Eosinophils # 0.3 10^3/uL (0.0-0.8); Eosinophils % 3.6 %; Hematocrit 40.7 % (37.0-47.0); Hemoglobin 11.1 g/dL (11.5-15.3); Lymphocytes # 2.3 10^3/uL (0.8-4.8); Lymphocytes % 31.2 %; Mean Corpuscular HGB Conc 27.3 g/dL (30.0-36.0); Mean Corpuscular Hemoglobin 21.3 pg (28.0-34.0); Mean Corpuscular Volume 78.3 fL (81-99); Mean Platelet Volume 10.6 fL (7.4-10.4); Monocytes # 0.5 10^3/uL (0.2-0.9); Neutrophils # 4.16 10^3/uL (1.8-7.7); Neutrophils % 57.4 %; Nucleated Red Blood Cells % 0 %; Platelet Count 379 10^3/cmm (130-400); Red Cell Distribution Width 16.3 % (12.1-15.1); White Blood Count 7.3 10^3/uL (4.0-10.0)
[2020-11-12 18:43] LABS: HCG, Serum Qual Negative (Negative)
[2020-11-12 18:49] LABS: H. Pylori IgG Antibody Negative (Negative)
[2020-11-12 18:50] LABS: Alanine Aminotransferase 13 U/L (0-33); Albumin Level 4.1 g/dL (3.5-5.2); Alkaline Phosphatase 92 IU/L (35-105); Anion Gap 13.9 (5-19); Aspartate Amino Transferase 16 U/L (0-32); Blood Urea Nitrogen 9 mg/dL (6-20); Calcium 7.9 mg/dL (8.5-10.5); Carbon Dioxide 24 mmol/L (22-29); Chloride 103 mmol/L (98-107); Globulin 3.2 g/dL (1.3-4.6); Glucose 85 mg/dL (65-115); Osmolality Calculated 282 mOsm/kg (285-295); Potassium 3.9 mmol/L (3.5-5.1); Sodium 137 mmol/L (136-145); Total Bilirubin 0.3 mg/dL (0.15-1.2); Total Protein 7.3 g/dL (6.6-8.7)
--- NOTE | 2020-11-12 19:05 | PC.NURSE ---
Pt rounded on, denies needs, denies pain, states GI cocktail aiding in subsiding sx.Will continue to monitor.
[2020-11-12 19:47] VITALS: BP 108/78; PULSE 97; RESP 16; O2SAT 99
== END 2020-11-12 19:47 | disposition home or self-care (01) ==
PROVIDERS: Family Medicine; Physician Assistant; Emergency Provider Emergency Medicine; PCP Nurse Practitioner Family
DX: R11.2 Nausea with vomiting, unspecified (principal); R10.13 Epigastric pain
CPT/HCPCS: 80053; 84703; 85025; 86677; 99283

== ENCOUNTER 2021-01-02 16:57 | Emergency (ER) | payer BC, SELFPAY ==
[2021-01-02 17:27] VITALS: BP 115/82; PULSE 120; RESP 16; TEMP 36.7; O2SAT 94; BMI 40.0
--- NOTE | 2021-01-02 18:11 | ECG_ITS ---
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 Measurements Intervals [place] Rate: 113 P: 22 RI: 144 QRS: 10 QRSD: 86 T: 4 QT: 297 QTc: 408 Interpretive Statements SINUS TACHYCARDIA Compared to ECG 03/28/2020 20:49:43 Sinus rhythm no longer present Electronically Signed On 01-03-2021 14:15:26 CDT by Zulay Nichols M.D. [id number]
--- NOTE | 2021-01-02 18:11 | XRR_ITS ---
PROCEDURE INFORMATION: Exam: XR Chest Exam date and time: 01/02/2021 6:11 PM Age: 30 years old Clinical indication: Cough and fever and shortness of breath; Patient HX: SOB, fever, cough, dizziness x4days TECHNIQUE: Imaging protocol: XR of the chest. Views: 1 view. COMPARISON: CR XR chest 2V* [id number] 07/01/2020 9:32 PM FINDINGS: Lungs: There is some minimal infiltrate at the left lung base and a small left pleural effusion. Findings are worrisome for some left lower lobe pneumonia. Visualized portions of the right lung are clear. Pleural spaces: See Lungs finding. Heart/Mediastinum: Heart is within normal limits of size. Bones/joints: Unremarkable. XR/XR chest 1V portable [id number] IMPRESSION: Findings worrisome for left lower lobe pneumonia and small left pleural effusion.
--- NOTE | 2021-01-02 18:23 | ED_ITS ---
Documented by User: ALMA DELIA Irizarry 01/02/21 21:24 HPI - COVID General: Chief Complaint: COVID symptoms Stated Complaint: 101 Temp, Sent from , [facility] Time Seen by Provider: 01/02/21 18:11 Triage information: Has fever, cough or shortness of breath . Exposure to COVID + person last 14 days History of Present Illness: HPI Narrative: Patient is a 30-year-old female comes to the ED with a fever, headache, cough and shortness of breath. Patient has a past medical history of asthma. Patient says symptoms started approximately 3 days ago. She states that her [id number] tested positive for Covid a couple days ago and she has had close contact with her. She says her cough is mild and dry and she says she has had some increased shortness of breath over the past 2 days which she has been using her albuterol inhaler to help with. Denies any chest pain, abdominal pain, nausea/vomiting, bladder or bowel symptoms. Patient did state that she just started her menstrual period today. Patient rates her headache currently at 10 out of 10. MD complaint: reported COVID exposure and has COVID symptoms COVID 19 common symptoms: positive fever(s), non-productive cough, dyspnea and headache(s); negative chills, productive cough, fatigue, throat pain, nasal congestion, nausea, vomiting or diarrhea COVID 19 other sytmptoms: negative chest pain COVID Results: SARS-CoV-2 Antigen (Rapid) Positive (Negative) H 01/02/21 23:35 01/02/21 SARS-CoV-2 RNA (RT-PCR) Not detected (NOT DETECTED) 03/27/20 18:39 03/27/20 Nasal/Oral Coronavirus 2019 PCR Not detected 01/02/21 18:45 01/02/21 Review of Systems Const: Reports: fever(s); Denies: chills or fatigue Eyes: Denies: change in vision or eye discomfort ENMT: Denies: throat pain, odynophagia, nasal discharge or nasal congestion Card: Denies: chest pain, palpitations, edema, swelling of feet/ankles, dyspnea on exertion or orthopnea Resp: Reports: dyspnea and non-productive cough; Denies: productive cough GI: Denies: abdominal pain, nausea, vomiting, diarrhea, constipation or hematochezia : Denies: flank pain, dysuria or hematuria Musc: Denies: neck pain, back pain or extremity swelling Skin/Breast: Denies: rash or new lesions Neuro: Reports: headache(s); Denies: numbness in extremities or weakness in extremities PFSH ED PFSH: Medical History Asthma No pertinent past medical history Social History Smoking and tobacco status: never smoked Female Reproductive History: Date of last menstrual period: 12/30/20 Physical Exam Const: COMMON NORMALS: no acute distress, patient oriented x3, healthy appearing and alert GENERAL APPEARANCE: cooperative and comfortable HENMT: COMMON NORMALS: normocephalic HEAD & SCALP: normocephalic MOUTH: Normal oral and palatal mucosa present THROAT: posterior oropharynx normal and uvula midline Eye: COMMON NORMALS: Equal, round and reactive pupils present PUPIL: Yes Equal, round and reactive pupils present Neck/C-Spine: COMMON NORMALS: supple GENERAL: Yes normal visual inspection Resp: COMMON NORMALS: normal respiratory effort, No retractions and No use of accessory muscles EFFORT & INSPECTION: Yes able to speak in complete sentences, No tachypneic, No respiratory distress and No labored AUSCULTATION: no wheezes and diminished lung sounds on the left in the lower lung aaron OTHER: Patient has some diminished lung sounds on the left lower lobe but all other lung aaron were clear bilaterally. Cardio: COMMON NORMALS: regular rate, regular rhythm, S1 normal heart sound present, S2 normal heart sound present, No gallops present (Cardio), No clicks present (Cardio), No murmurs present (Cardio) and Peripheral pulses 2+ throughout RATE: regular rate RHYTHM: regular rhythm HEART SOUNDS: S1 normal heart sound present and S2 normal heart sound present PERIPHERAL PULSES: Peripheral pulses 2+ throughout GI: COMMON NORMALS: Normal to inspection, nondistended, normoactive bowel sounds present, Soft to palpation, non-tender and no masses PALPATION: Yes Soft to palpation : COMMON NORMALS: Yes no CVA tenderness BLADDER/KIDNEY EXAM: Yes no CVA tenderness Back/Pelvis: COMMON NORMALS: no CVA tenderness Extremity: COMMON NORMALS: normal to inspection Neuro: COMMON NORMALS: patient oriented x3 and moves all extremities SENSORIUM/ORIENTATION: Yes alert Skin: GENERAL SKIN EXAM: dry skin Course Vital Signs: Vital signs: Vital Signs Temperature 98.0 F 01/02/21 17:27 Pulse Rate 79 01/02/21 22:02 Respiratory Rate 16 01/02/21 22:02 Blood Pressure 119/79 01/02/21 22:02 Pulse Oximetry 94 01/02/21 22:02 MDM - COVID MDM Narrative: Medical decision making narrative: Patient is a 30-year-old female comes to the ED with fever, cough, shortness of breath and headache. She has a past medical history of asthma. Patient says her mouhqq-vf-[id number] recently tested positive for COVID-19 and she had close contact with her. Patient has some diminished lung sounds in the left lower lobe but the rest of exam is benign. Troponin negative, D-dimer 0.73. Patient's chest x-ray showed left lower lobe pneumonia. EKG showed sinus tachycardia, 113 bpm, no ST segment elevation seen. Influenza negative. COVID-19 PCR test negative. CTA chest is pending. Patient care is being transferred over to Lu Lott the physician criminal legal assistant. She is aware of patient's case and I told her we are waiting on CTA results. Lab Data: Attestation: I reviewed the patient's lab results. Labs: Lab Results 01/02/21 01/02/21 01/02/21 Range/Units 18:45 18:45 19:50 WBC 3.1 L (4.0-10.0) 10^3/ uL RBC 5.55 H (4.1-5.3) 10^6/u L Hgb 11.8 (11.5-15.3) g/dL Hct 40.8 (37.0-47.0) % MCV 73.5 L (81-99) fL MCH 21.3 L (28.0-34.0) pg MCHC 28.9 L (30.0-36.0) g/dL RDW 17.3 H (12.1-15.1) % Plt Count 252 (130-400) 10^3/c mm MPV 10.9 H (7.4-10.4) fL Neut % (Auto) 35.9 % Lymph % (Auto) 56.1 % [facility] % (Auto) 7.7 % Eos % (Auto) 0.0 % Baso % (Auto) 0.3 % Neut # (Auto) 1.12 L (1.8-7.7) 10^3/u L Lymph # (Auto) 1.8 (0.8-4.8) 10^3/u L [facility] # (Auto) 0.2 (0.2-0.9) 10^3/u L Eos # (Auto) 0.0 (0.0-0.8) 10^3/u L Baso # (Auto) 0.0 (0.0-0.1) 10^3/u L Nucleated RBC % (a uto) 0 % Nucleated RBCs # 0.0 /100WBC D-Dimer (0-0.59) ug/mIFE U Sodium (136-145) mmol/L Potassium (3.5-5.1) mmol/L Chloride (98-107) mmol/L Carbon Dioxide (22-29) mmol/L Anion Gap (5-19) BUN (6-20) mg/dL Creatinine (0.5-0.9) mg/dL GFR Calculation (90-130) mL/min Glucose (65-115) mg/dL Calculated Osmolal ity (285-295) mOsm/k g Calcium (8.5-10.5) mg/dL Total Bilirubin (0.15-1.2) mg/dL AST (0-32) U/L ALT (0-33) U/L Alkaline Phosphata se (35-105) IU/L Troponin T Gen 5 n g/L (0-10) ng/L Total Protein (6.6-8.7) g/dL Albumin (3.5-5.2) g/dL Globulin (1.3-4.6) g/dL HCG, Qual (Negative) Nasal/Oral COVID-1 9 PCR Not detected Influenza Type A A g Negative (Negative) Influenza Type B A g Negative (Negative) SARS-CoV-2 Ag (Rap id) (Negative) 01/02/21 01/02/21 01/02/21 Range/Units 19:50 19:50 19:50 WBC (4.0-10.0) 10^3/ uL RBC (4.1-5.3) 10^6/u L Hgb (11.5-15.3) g/dL Hct (37.0-47.0) % MCV (81-99) fL MCH (28.0-34.0) pg MCHC (30.0-36.0) g/dL RDW (12.1-15.1) % Plt Count (130-400) 10^3/c mm MPV (7.4-10.4) fL Neut % (Auto) % Lymph % (Auto) % [facility] % (Auto) % Eos % (Auto) % Baso % (Auto) % Neut # (Auto) (1.8-7.7) 10^3/u L Lymph # (Auto) (0.8-4.8) 10^3/u L [facility] # (Auto) (0.2-0.9) 10^3/u L Eos # (Auto) (0.0-0.8) 10^3/u L Baso # (Auto) (0.0-0.1) 10^3/u L Nucleated RBC % (a uto) % Nucleated RBCs # /100WBC D-Dimer (0-0.59) ug/mIFE U Sodium 137 (136-145) mmol/L Potassium 4.2 (3.5-5.1) mmol/L Chloride 104 (98-107) mmol/L Carbon Dioxide 21 L (22-29) mmol/L Anion Gap 16.2 (5-19) BUN 9 (6-20) mg/dL Creatinine 0.5 (0.5-0.9) mg/dL GFR Calculation 143.0 H (90-130) mL/min Glucose 93 (65-115) mg/dL Calculated Osmolal ity 282 L (285-295) mOsm/k g Calcium 8.1 L (8.5-10.5) mg/dL Total Bilirubin 0.2 (0.15-1.2) mg/dL AST 29 (0-32) U/L ALT 24 (0-33) U/L Alkaline Phosphata se 92 (35-105) IU/L Troponin T Gen 5 n g/L 6 (0-10) ng/L Total Protein 7.7 (6.6-8.7) g/dL Albumin 4.0 (3.5-5.2) g/dL Globulin 3.7 (1.3-4.6) g/dL HCG, Qual Negative (Negative) Nasal/Oral COVID-1 9 PCR Influenza Type A A g (Negative) Influenza Type B A g (Negative) SARS-CoV-2 Ag (Rap id) (Negative) 01/02/21 01/02/21 Range/Units 20:30 23:35 WBC (4.0-10.0) 10^3/ uL RBC (4.1-5.3) 10^6/u L Hgb (11.5-15.3) g/dL Hct (37.0-47.0) % MCV (81-99) fL MCH (28.0-34.0) pg MCHC (30.0-36.0) g/dL RDW (12.1-15.1) % Plt Count (130-400) 10^3/c mm MPV (7.4-10.4) fL Neut % (Auto) % Lymph % (Auto) % [facility] % (Auto) % Eos % (Auto) % Baso % (Auto) % Neut # (Auto) (1.8-7.7) 10^3/u L Lymph # (Auto) (0.8-4.8) 10^3/u L [facility] # (Auto) (0.2-0.9) 10^3/u L Eos # (Auto) (0.0-0.8) 10^3/u L Baso # (Auto) (0.0-0.1) 10^3/u L Nucleated RBC % (a uto) % Nucleated RBCs # /100WBC D-Dimer 0.73 H (0-0.59) ug/mIFE U Sodium (136-145) mmol/L Potassium (3.5-5.1) mmol/L Chloride (98-107) mmol/L Carbon Dioxide (22-29) mmol/L Anion Gap (5-19) BUN (6-20) mg/dL Creatinine (0.5-0.9) mg/dL GFR Calculation (90-130) mL/min Glucose (65-115) mg/dL Calculated Osmolal ity (285-295) mOsm/k g Calcium (8.5-10.5) mg/dL Total Bilirubin (0.15-1.2) mg/dL AST (0-32) U/L ALT (0-33) U/L Alkaline Phosphata se (35-105) IU/L Troponin T Gen 5 n g/L (0-10) ng/L Total Protein (6.6-8.7) g/dL Albumin (3.5-5.2) g/dL Globulin (1.3-4.6) g/dL HCG, Qual (Negative) Nasal/Oral COVID-1 9 PCR Influenza Type A A g (Negative) Influenza Type B A g (Negative) SARS-CoV-2 Ag (Rap id) Positive H (Negative) Imaging Data: CXR: Attestation: I personally reviewed and interpreted this imaging study as follows: Radiologist's impression: [address] [address] XRay Report Signed Patient: Leila Armstrong Unit #: [id number] : 1990 Age/Sex: 30 / F ADM Date: 01/02/21 Loc: ER Room/Bed: Attending Dr: Ordering Provider/Ordering MD: Adiel Mehta Date of Service: 01/02/21 Procedure(s): XR chest 1V portable [id number] Accession Number(s): [id number] Report Number: [id number] PROCEDURE INFORMATION: Exam: XR Chest Exam date and time: 01/02/2021 6:11 PM Age: 30 years old Clinical indication: Cough and fever and shortness of breath; Patient HX: SOB, fever, cough, dizziness x4days TECHNIQUE: Imaging protocol: XR of the chest. Views: 1 view. COMPARISON: CR XR chest 2V* [id number] 07/01/2020 9:32 PM FINDINGS: Lungs: There is some minimal infiltrate at the left lung base and a small left pleural effusion. Findings are worrisome for some left lower lobe pneumonia. Visualized portions of the right lung are clear. Pleural spaces: See Lungs finding. Heart/Mediastinum: Heart is within normal limits of size. Bones/joints: Unremarkable. XR/XR chest 1V portable [id number] IMPRESSION: Findings worrisome for left lower lobe pneumonia and small left pleural effusion. Dictated By: Carlos Enrique Freeman Signed By: Carlos Enrique Freeman Signed Date/Time: 06/1855 DD/ 54 EKG Data: EKG 1: Attestation: I personally reviewed and interpreted this EKG as follows: EKG interpretation date: 01/02/21 Interpretation: Sinus tachycardia, 113 bpm, no ST segment elevation or depression seen. COVID Results: SARS-CoV-2 Antigen (Rapid) Positive (Negative) H 01/02/21 23:35 01/02/21 SARS-CoV-2 RNA (RT-PCR) Not detected (NOT DETECTED) 03/27/20 18:39 03/27/20 Nasal/Oral Coronavirus 2019 PCR Not detected 01/02/21 18:45 01/02/21 Discharge Plan Discharge Patient Disposition: Home Clinical Impression: COVID-19 Condition: Stable Prescriptions: No Action cephalexin 500 mg capsule 500 mg PO QID 5 Days Qty: 20 RF: 0 albuterol sulfate [ProAir HFA] 90 mcg/actuation HFA aerosol inhaler 2 puff INHALATION Q6H PRN (Reason: shortness of breath or wheezing) Qty: 8.5 RF: 0 acetaminophen [Tylenol Extra Strength] 500 mg Tablet 1,000 - 2,000 mg PO PRN RF: 0 Tums 1 - 2 tab PO PRN RF: 0 ondansetron 4 mg tablet,disintegrating 4 mg PO Q6H PRN (Reason: nausea and vomiting) Qty: 14 RF: 0 Protonix 40 mg tablet,delayed release (DR/EC) 40 mg PO DAILY Qty: 60 RF: 0 Discharge Orders: Discharge ED (Routine); Ordered 01/03/21 Ordered By: Lu Lott Referrals: Sherly Mayer FNP [Primary Care Provider] - Discharge Diet: Regular Discharge Activity: Limit activity as instructed Activity Restrictions/Additional Instructions: As we discussed you did test positive for COVID-19. You were given a monoclonal antibody infusion here for treatment. There is no further treatment indicated at this time. You need to quarantine for the next 10 days. You may return to the emergency department for severe shortness of breath or difficulty breathing, or any other concerns you may have. Thank you for choosing [facility] for your healthcare needs today. Please realize this is an emergency room and that we are providing you with a medical screening exam and this may not be complete and all inclusive of all the testing and or work up that you may need to determine your ailment or severity of your illness. It is very important that you follow up as instructed or that you return to the Emergency Department should you have concerns or if your condition changes or worsens in any way. Sign Out Sign Out Data: Patient Sign Out occurred on 01/02/21 at 21:32. Patient's care was discussed, and care was transferred from to ALMA DELIA Molina. Coding Level of Care Code ED Radiologic Tech for Chg Fwd Exam Comprehensive Documented by User: ALMA DELIA Molina 01/03/21 00:12 HPI - COVID General: Chief Complaint: COVID symptoms Stated Complaint: 101 Temp, Sent from , Headache Time Seen by Provider: 01/02/21 18:11 COVID Results: SARS-CoV-2 Antigen (Rapid) Positive (Negative) H 01/02/21 23:35 01/02/21 SARS-CoV-2 RNA (RT-PCR) Not detected (NOT DETECTED) 03/27/20 18:39 03/27/20 Nasal/Oral Coronavirus 2019 PCR Not detected 01/02/21 18:45 01/02/21 [facility] ED PFSH: Medical History Asthma No pertinent past medical history Social History Smoking and tobacco status: never smoked Course Vital Signs: Vital signs: Vital Signs Temperature 98.0 F 01/02/21 17:27 Pulse Rate 79 01/02/21 22:02 Respiratory Rate 16 01/02/21 22:02 Blood Pressure 119/79 01/02/21 22:02 Pulse Oximetry 94 01/02/21 22:02 MDM - COVID MDM Narrative: Medical decision making narrative: I received patient from Adiel Mehta PA-C. She has known COVID exposure. Symptoms and labs concerning for COVID. She is not requiring oxygen. D-dimer was elevated so CTA pending at checkout. CXR did show pneumonia. PCR COVID is pending. I went ahead and ordered rapid here because if positive she is a candidate for BAM infusion given her morbid obesity status. This was positive. Patient received BAM infusion and is stable for DC with quarantine instructions. Lab Data: Labs: Lab Results 01/02/21 01/02/21 01/02/21 Range/Units 18:45 18:45 19:50 WBC 3.1 L (4.0-10.0) 10^3/ uL RBC 5.55 H (4.1-5.3) 10^6/u L Hgb 11.8 (11.5-15.3) g/dL Hct 40.8 (37.0-47.0) % MCV 73.5 L (81-99) fL MCH 21.3 L (28.0-34.0) pg MCHC 28.9 L (30.0-36.0) g/dL RDW 17.3 H (12.1-15.1) % Plt Count 252 (130-400) 10^3/c mm MPV 10.9 H (7.4-10.4) fL Neut % (Auto) 35.9 % Lymph % (Auto) 56.1 % [facility] % (Auto) 7.7 % Eos % (Auto) 0.0 % Baso % (Auto) 0.3 % Neut # (Auto) 1.12 L (1.8-7.7) 10^3/u L Lymph # (Auto) 1.8 (0.8-4.8) 10^3/u L [facility] # (Auto) 0.2 (0.2-0.9) 10^3/u L Eos # (Auto) 0.0 (0.0-0.8) 10^3/u L Baso # (Auto) 0.0 (0.0-0.1) 10^3/u L Nucleated RBC % (a uto) 0 % Nucleated RBCs # 0.0 /100WBC D-Dimer (0-0.59) ug/mIFE U Sodium (136-145) mmol/L Potassium (3.5-5.1) mmol/L Chloride (98-107) mmol/L Carbon Dioxide (22-29) mmol/L Anion Gap (5-19) BUN (6-20) mg/dL Creatinine (0.5-0.9) mg/dL GFR Calculation (90-130) mL/min Glucose (65-115) mg/dL Calculated Osmolal ity (285-295) mOsm/k g Calcium (8.5-10.5) mg/dL Total Bilirubin (0.15-1.2) mg/dL AST (0-32) U/L ALT (0-33) U/L Alkaline Phosphata se (35-105) IU/L Troponin T Gen 5 n g/L (0-10) ng/L Total Protein (6.6-8.7) g/dL Albumin (3.5-5.2) g/dL Globulin (1.3-4.6) g/dL HCG, Qual (Negative) Nasal/Oral COVID-1 9 PCR Not detected Influenza Type A A g Negative (Negative) Influenza Type B A g Negative (Negative) SARS-CoV-2 Ag (Rap id) (Negative) 01/02/21 01/02/21 01/02/21 Range/Units 19:50 19:50 19:50 WBC (4.0-10.0) 10^3/ uL RBC (4.1-5.3) 10^6/u L Hgb (11.5-15.3) g/dL Hct (37.0-47.0) % MCV (81-99) fL MCH (28.0-34.0) pg MCHC (30.0-36.0) g/dL RDW (12.1-15.1) % Plt Count (130-400) 10^3/c mm MPV (7.4-10.4) fL Neut % (Auto) % Lymph % (Auto) % [facility] % (Auto) % Eos % (Auto) % Baso % (Auto) % Neut # (Auto) (1.8-7.7) 10^3/u L Lymph # (Auto) (0.8-4.8) 10^3/u L [facility] # (Auto) (0.2-0.9) 10^3/u L Eos # (Auto) (0.0-0.8) 10^3/u L Baso # (Auto) (0.0-0.1) 10^3/u L Nucleated RBC % (a uto) % Nucleated RBCs # /100WBC D-Dimer (0-0.59) ug/mIFE U Sodium 137 (136-145) mmol/L Potassium 4.2 (3.5-5.1) mmol/L Chloride 104 (98-107) mmol/L Carbon Dioxide 21 L (22-29) mmol/L Anion Gap 16.2 (5-19) BUN 9 (6-20) mg/dL Creatinine 0.5 (0.5-0.9) mg/dL GFR Calculation 143.0 H (90-130) mL/min Glucose 93 (65-115) mg/dL Calculated Osmolal ity 282 L (285-295) mOsm/k g Calcium 8.1 L (8.5-10.5) mg/dL Total Bilirubin 0.2 (0.15-1.2) mg/dL AST 29 (0-32) U/L ALT 24 (0-33) U/L Alkaline Phosphata se 92 (35-105) IU/L Troponin T Gen 5 n g/L 6 (0-10) ng/L Total Protein 7.7 (6.6-8.7) g/dL Albumin 4.0 (3.5-5.2) g/dL Globulin 3.7 (1.3-4.6) g/dL HCG, Qual Negative (Negative) Nasal/Oral COVID-1 9 PCR Influenza Type A A g (Negative) Influenza Type B A g (Negative) SARS-CoV-2 Ag (Rap id) (Negative) 01/02/21 01/02/21 Range/Units 20:30 23:35 WBC (4.0-10.0) 10^3/ uL RBC (4.1-5.3) 10^6/u L Hgb (11.5-15.3) g/dL Hct (37.0-47.0) % MCV (81-99) fL MCH (28.0-34.0) pg MCHC (30.0-36.0) g/dL RDW (12.1-15.1) % Plt Count (130-400) 10^3/c mm MPV (7.4-10.4) fL Neut % (Auto) % Lymph % (Auto) % [facility] % (Auto) % Eos % (Auto) % Baso % (Auto) % Neut # (Auto) (1.8-7.7) 10^3/u L Lymph # (Auto) (0.8-4.8) 10^3/u L [facility] # (Auto) (0.2-0.9) 10^3/u L Eos # (Auto) (0.0-0.8) 10^3/u L Baso # (Auto) (0.0-0.1) 10^3/u L Nucleated RBC % (a uto) % Nucleated RBCs # /100WBC D-Dimer 0.73 H (0-0.59) ug/mIFE U Sodium (136-145) mmol/L Potassium (3.5-5.1) mmol/L Chloride (98-107) mmol/L Carbon Dioxide (22-29) mmol/L Anion Gap (5-19) BUN (6-20) mg/dL Creatinine (0.5-0.9) mg/dL GFR Calculation (90-130) mL/min Glucose (65-115) mg/dL Calculated Osmolal ity (285-295) mOsm/k g Calcium (8.5-10.5) mg/dL Total Bilirubin (0.15-1.2) mg/dL AST (0-32) U/L ALT (0-33) U/L Alkaline Phosphata se (35-105) IU/L Troponin T Gen 5 n g/L (0-10) ng/L Total Protein (6.6-8.7) g/dL Albumin (3.5-5.2) g/dL Globulin (1.3-4.6) g/dL HCG, Qual (Negative) Nasal/Oral COVID-1 9 PCR Influenza Type A A g (Negative) Influenza Type B A g (Negative) SARS-CoV-2 Ag (Rap id) Positive H (Negative) Imaging Data: CTA Chest: Radiologist's impression: [address] [address]EI Scan ReportSigned Patient: Leila Armstrong #: [id number]: 1990Acct#:[id number]/Sex: 30 / FADM Date: 01/02/21Loc: ERRoom/Bed:Attending Dr: Ordering Provider/Ordering MD: Lu Lott Date of Service: 01/02/21 Procedure(s): CT angio chest PE protcl [id number] Accession Number(s): [id number] Report Number: [id number] PROCEDURE INFORMATION: Exam: CTA Chest With Contrast Exam date and time: 01/02/2021 9:12 PM Age: 30 years old Clinical indication: Abnormal findings; Abnormal diagnostic tests; Elevated d-dimer; Cough and fever and shortness of breath and other: Tachycardia; Additional info: Tachycardia, SOB, elevated d dimer TECHNIQUE: Imaging protocol: Computed tomographic angiography of the chest with contrast. 3D rendering (Not supervised by radiologist): MIP and/or 3D reconstructed images were created by the technologist. Radiation optimization: All CT scans at this facility use at least one of these dose optimization techniques: automated exposure control; mA and/or kV adjustment per patient size (includes targeted exams where dose is matched to clinical indication); or iterative reconstruction. Contrast material: OMNI 350; Contrast volume: 124 ml; Contrast route: INTRAVENOUS (IV); COMPARISON: CR (CHEST, ) 01/02/2021 6:15 PM RADIATION DOSE METRICS: Total DLP (mGy-cm): 1462.65 FINDINGS: Pulmonary arteries: Normal. No pulmonary emboli. Aorta: Unremarkable. No aortic aneurysm. No aortic dissection. Lungs: There are predominantly peripheral patchy ground-glass opacities present in the hemithoraces bilaterally, findings that could represent a viral pneumonitis. Pleural spaces: Unremarkable. No pneumothorax. No pleural effusion. Heart: Unremarkable. No cardiomegaly. No pericardial effusion. Mediastinal space: There is a small hiatal hernia present. Lymph nodes: Unremarkable. No enlarged lymph nodes. Spleen: The spleen is prominent measuring 15.7 cm AP dimension. Bones/joints: Unremarkable. No acute fracture. Soft tissues: Unremarkable. CT/CT angio chest PE protcl [id number] IMPRESSION: 1. There is no evidence for pulmonary emboli. 2. There are patchy predominantly peripheral ground-glass opacities present bilaterally, findings that could represent an interstitial pneumonitis. Commonly reported imaging features of COVID-19 pneumonia are present. Other processes such as influenza pneumonia and organizing pneumonia, as can be seen with drug toxicity and connective tissue disease, can cause a similar imaging pattern. (Reference: Tank) 3. Small hiatal hernia 4. Mild splenomegaly REFERENCES: Tank Mccormick, et al., Radiological Society of [place] Expert Consensus Statement on Reporting Chest CT Findings Related to COVID-19. Endorsed by the Society of Thoracic Radiology, the [place] [employer], and RSNA. Published October 04, 2019. Radiation Dose CTDIVOL = (mGy): DLP = 1462.65 (mGy-cm) Dictated By:Tu Cole MDSigned By:Tu Cole MDSigned Date/Time:01/02/212228DD/ 27 COVID Results: SARS-CoV-2 Antigen (Rapid) Positive (Negative) H 01/02/21 23:35 01/02/21 SARS-CoV-2 RNA (RT-PCR) Not detected (NOT DETECTED) 03/27/20 18:39 03/27/20 Nasal/Oral Coronavirus 2019 PCR Not detected 01/02/21 18:45 01/02/21 Monoclonal Antibody Treatments Inclusion/Exclusion Criteria weight >/= 40 kg and + direct Sars-Cov-2 test less than 7-10 days ago BMI >/= 35 not requiring hospitalization, not requiring oxygen (if not chronically on oxygen) and no increase oxygen requirement (if chronically on oxygen) Patient education patient/family/caregiver received/reviewed fact sheet, Emergency Use Authorization/unapproved drug status discussed with patient/family/caregiver, alternatives to this treatment discussed with patient/family/caregiver, risks and benefits of medication reviewed with patient/family/caregiver, patient/family/caregiver given opportunity for questions, which were answered and patient consents to receiving Monoclonal Antibody Treatment Plan for treatment Meets criteria for Monoclonal Antibody infusion Ordering Monoclonal Antibody infusion for today and Monoclonal antibody information given Discharge Plan Discharge Patient Disposition: Home Clinical Impression: COVID-19 Condition: Stable Prescriptions: No Action cephalexin 500 mg capsule 500 mg PO QID 5 Days Qty: 20 RF: 0 albuterol sulfate [ProAir HFA] 90 mcg/actuation HFA aerosol inhaler 2 puff INHALATION Q6H PRN (Reason: shortness of breath or wheezing) Qty: 8.5 RF: 0 acetaminophen [Tylenol Extra Strength] 500 mg Tablet 1,000 - 2,000 mg PO PRN RF: 0 Tums 1 - 2 tab PO PRN RF: 0 ondansetron 4 mg tablet,disintegrating 4 mg PO Q6H PRN (Reason: nausea and vomiting) Qty: 14 RF: 0 Protonix 40 mg tablet,delayed release (DR/EC) 40 mg PO DAILY Qty: 60 RF: 0 Discharge Orders: Discharge ED (Routine); Ordered 01/03/21 Ordered By: Lu Lott Referrals: Sherly Mayer, [employer] [Primary Care Provider] - Discharge Diet: Regular Discharge Activity: Limit activity as instructed Activity Restrictions/Additional Instructions: As we discussed you did test positive for COVID-19. You were given a monoclonal antibody infusion here for treatment. There is no further treatment indicated at this time. You need to quarantine for the next 10 days. You may return to the emergency department for severe shortness of breath or difficulty breathing, or any other concerns you may have. Thank you for choosing [facility] for your healthcare needs today. Please realize this is an emergency room and that we are providing you with a medical screening exam and this may not be complete and all inclusive of all the testing and or work up that you may need to determine your ailment or severity of your illness. It is very important that you follow up as instructed or that you return to the Emergency Department should you have concerns or if your condition changes or worsens in any way. Sign Out Sign Out Data: Patient Sign Out occurred on 01/02/21 at 21:32. Patient's care was discussed, and care was transferred from to [facility] DELIA Molina. Coding Level of Care Code ED Radiologic Tech for Cassi Fwnahum Exam Comprehensive
[2021-01-02 18:50] VITALS: O2SAT 93
[2021-01-02 18:52] VITALS: BP 127/79; PULSE 109; RESP 16; O2SAT 94
[2021-01-02 19:23] LABS: Influenza A by IFA Negative (Negative); Influenza B by IFA Negative (Negative)
[2021-01-02 19:56] LABS: Basophils % 0.3 %; Hematocrit 40.8 % (37.0-47.0); Hemoglobin 11.8 g/dL (11.5-15.3); Lymphocytes # 1.8 10^3/uL (0.8-4.8); Lymphocytes % 56.1 %; Mean Corpuscular HGB Conc 28.9 g/dL (30.0-36.0); Mean Corpuscular Hemoglobin 21.3 pg (28.0-34.0); Mean Corpuscular Volume 73.5 fL (81-99); Mean Platelet Volume 10.9 fL (7.4-10.4); Monocytes # 0.2 10^3/uL (0.2-0.9); Monocytes % 7.7 %; Neutrophils # 1.12 10^3/uL (1.8-7.7); Neutrophils % 35.9 %; Nucleated Red Blood Cells % 0 %; Platelet Count 252 10^3/cmm (130-400); Red Blood Count 5.55 10^6/uL (4.1-5.3); Red Cell Distribution Width 17.3 % (12.1-15.1); White Blood Count 3.1 10^3/uL (4.0-10.0)
[2021-01-02 19:59] LABS: Coronavirus Test Green County Not Detected
[2021-01-02] MEDS: sodium chloride 0.9% 500 ML 999 ML IV (20:08)
[2021-01-02] MEDS: ketorolac 30 mg/mL INJ IVP (20:09)
[2021-01-02] MEDS: azithromycin 250 mg Tablet 1000 MG PO (20:09)
[2021-01-02 20:34] LABS: HCG, Serum Qual Negative (Negative)
[2021-01-02 20:40] LABS: Troponin T (5th) Once 6 ng/L (0-10)
[2021-01-02 20:42] LABS: Alanine Aminotransferase 24 U/L (0-33); Alkaline Phosphatase 92 IU/L (35-105); Blood Urea Nitrogen 9 mg/dL (6-20); Calcium 8.1 mg/dL (8.5-10.5); Carbon Dioxide 21 mmol/L (22-29); Chloride 104 mmol/L (98-107); Globulin 3.7 g/dL (1.3-4.6); Glucose 93 mg/dL (65-115); Osmolality Calculated 282 mOsm/kg (285-295); Sodium 137 mmol/L (136-145); Total Bilirubin 0.2 mg/dL (0.15-1.2); Total Protein 7.7 g/dL (6.6-8.7)
[2021-01-02 20:44] LABS: Anion Gap 16.2 (5-19); Aspartate Amino Transferase 29 U/L (0-32); Potassium 4.2 mmol/L (3.5-5.1)
[2021-01-02 21:02] LABS: D Dimer 0.73 ug/mIFEU (0-0.59)
--- NOTE | 2021-01-02 21:12 | CTR_ITS ---
PROCEDURE INFORMATION: Exam: CTA Chest With Contrast Exam date and time: 01/02/2021 9:12 PM Age: 30 years old Clinical indication: Abnormal findings; Abnormal diagnostic tests; Elevated d-dimer; Cough and fever and shortness of breath and other: Tachycardia; Additional info: Tachycardia, SOB, elevated d dimer TECHNIQUE: Imaging protocol: Computed tomographic angiography of the chest with contrast. 3D rendering (Not supervised by radiologist): MIP and/or 3D reconstructed images were created by the technologist. Radiation optimization: All CT scans at this facility use at least one of these dose optimization techniques: automated exposure control; mA and/or kV adjustment per patient size (includes targeted exams where dose is matched to clinical indication); or iterative reconstruction. Contrast material: OMNI 350; Contrast volume: 124 ml; Contrast route: INTRAVENOUS (IV); COMPARISON: CR (CHEST, ) 01/02/2021 6:15 PM RADIATION DOSE METRICS: Total DLP (mGy-cm): 1462.65 FINDINGS: Pulmonary arteries: Normal. No pulmonary emboli. Aorta: Unremarkable. No aortic aneurysm. No aortic dissection. Lungs: There are predominantly peripheral patchy ground-glass opacities present in the hemithoraces bilaterally, findings that could represent a viral pneumonitis. Pleural spaces: Unremarkable. No pneumothorax. No pleural effusion. Heart: Unremarkable. No cardiomegaly. No pericardial effusion. Mediastinal space: There is a small hiatal hernia present. Lymph nodes: Unremarkable. No enlarged lymph nodes. Spleen: The spleen is prominent measuring 15.7 cm AP dimension. Bones/joints: Unremarkable. No acute fracture. Soft tissues: Unremarkable. CT/CT angio chest PE protcl [id number] IMPRESSION: 1. There is no evidence for pulmonary emboli. 2. There are patchy predominantly peripheral ground-glass opacities present bilaterally, findings that could represent an interstitial pneumonitis. Commonly reported imaging features of COVID-19 pneumonia are present. Other processes such as influenza pneumonia and organizing pneumonia, as can be seen with drug toxicity and connective tissue disease, can cause a similar imaging pattern. (Reference: Tank) 3. Small hiatal hernia 4. Mild splenomegaly REFERENCES: Tank Mccormick et al., Radiological Society of [place] Expert Consensus Statement on Reporting Chest CT Findings Related to COVID-19. Endorsed by the Society of Thoracic Radiology, the [place] [employer], and RSNA. Published October 04, 2019. Radiation Dose CTDIVOL = (mGy): DLP = 1462.65 (mGy-cm)
[2021-01-02 22:02] VITALS: BP 119/79; PULSE 79; RESP 16; O2SAT 94
[2021-01-02 23:00] VITALS: BP 132/68; PULSE 78; RESP 18; O2SAT 96
[2021-01-02 23:58] LABS: SARS Covid-2 Antigen Positive (Negative)
[2021-01-03] VITALS: PULSE 80; RESP 16; O2SAT 96
[2021-01-03 01:00] VITALS: PULSE 82; RESP 16; O2SAT 95
[2021-01-03 02:17] VITALS: BP 144/72; PULSE 82; RESP 18; O2SAT 96
[2021-01-03 02:39] VITALS: BP 123/77; PULSE 72; RESP 18; O2SAT 95
[2021-01-03 04:59] VITALS: BP 122/84; PULSE 79; RESP 18; O2SAT 96
[2021-01-03 05:13] VITALS: BP 111/74; PULSE 78; RESP 18; TEMP 36.7; O2SAT 96
--- NOTE | 2021-01-03 19:19 | PC.NURSE ---
gave pt negative PCR results.
== END 2021-01-03 05:15 | disposition home or self-care (01) ==
PROVIDERS: Physician Assistant; Emergency Provider Physician Assistant; PCP Nurse Practitioner Family
DX: U07.1 COVID-19 (principal)
CPT/HCPCS: 36415; 71045; 71275; 80053; 84484; 84703; 85025; 85378; 87426; 87635; 87804; 93005; 96365; 96375; 99284; J1885; J7040; Q0144; Q9967

== ENCOUNTER 2021-02-05 20:37 | Emergency (ER) | payer SELFPAY ==
[2021-02-05 21:39] VITALS: PULSE 95; RESP 16; TEMP 36.9; O2SAT 97; BMI 37.1
--- NOTE | 2021-02-05 23:08 | W.ED.ANIMALB ---
HPI - Animal Bite General: Chief Complaint: Animal Bite Stated Complaint: ANIMAL BITE Time Seen by Provider: 02/05/21 23:03 Source: patient Mode of arrival: ambulatory Limitations: no limitations History of Present Illness: HPI narrative: 30-year-old female states she was bit by a friend's dog is a pit bull mix roughly 3 hours ago. She is a bit to her right leg. She denies any other injuries. She states she is not up-to-date on her tetanus. States pain is sharp nature rates a 6 out of 10. Dog has been vaccinated for rabies and is in quarantine currently. Associated symptoms: Deny chills, fever(s) or headache(s) Review of Systems Const: Denies: fever(s), chills, body aches or change in appetite Eyes: Denies: blurry vision or eye discomfort ENMT: Denies: throat pain or dental pain Card: Denies: chest pain Resp: Denies: dyspnea GI: Denies: abdominal pain, nausea, vomiting or diarrhea : Denies: dysuria Musc: Denies: neck pain or back pain Skin/Breast: Denies: rash Neuro: Denies: headache(s) Psych: Denies: depression Brijesh/Lymph: Denies: easy bruising All/Imm: Denies: urticaria PFSH ED PFSH: Medical History Asthma No pertinent past medical history Social History Smoking and tobacco status: never smoked Female Reproductive History: Date of last menstrual period: 02/04/21 Physical Exam Const: COMMON NORMALS: no acute distress, patient oriented x3 and healthy appearing HENMT: COMMON NORMALS: normocephalic and atraumatic HEAD & SCALP: normocephalic and atraumatic Eye: COMMON NORMALS: Equal, round and reactive pupils present and EOMs intact bilaterally PUPIL: Yes Equal, round and reactive pupils present Neck/C-Spine: COMMON NORMALS: full ROM and supple Chest: COMMONS NORMALS: normal inspection of the chest Resp: COMMON NORMALS: normal respiratory effort and No retractions Cardio: COMMON NORMALS: regular rate and No murmurs present (Cardio) RATE: regular rate GI: COMMON NORMALS: Normal to inspection, nondistended, normoactive bowel sounds present, Soft to palpation, non-tender and no masses PALPATION: Yes Soft to palpation Extremity: COMMON NORMALS: full ROM NARRATIVE EXTREMITY EXAM: Dog bite to right posterior leg is a puncture wound Neuro: COMMON NORMALS: patient oriented x3, moves all extremities and no focal motor deficits Psych: COMMON NORMALS: mental status grossly normal, Normal thought process present and cooperative THOUGHT PROCESS: Normal thought process present Skin: COMMON NORMALS: no rashes or lesions noted and no wounds GENERAL SKIN EXAM: no rashes or lesions noted Course Vital Signs: Vital signs: Vital Signs Temperature 98.4 F 02/05/21 21:39 Pulse Rate 95 02/05/21 21:39 Respiratory Rate 16 02/05/21 21:39 Pulse Oximetry 97 02/05/21 21:39 MDM - Animal Bite MDM Narrative: Medical decision making narrative: Patient presents with dog bite to her leg. She does not require sutures will place her on pain meds along with antibiotics. Patient given a tetanus. She stable for discharge is to watch for any signs of infection and return if worsening. Discharge Plan Discharge Patient Disposition: Home Clinical Impression: Dog bite Qualifiers: Encounter type: initial encounter Qualified Code(s): W54.0XXA - Bitten by dog, initial encounter Condition: Stable Prescriptions: New hydrocodone-acetaminophen 5-325 mg tablet 1 tab PO Q6H PRN (Reason: pain) Qty: 14 RF: 0 Augmentin 875-125 mg tablet 1 tab PO BID Qty: 14 RF: 0 No Action cephalexin 500 mg capsule 500 mg PO QID 5 Days Qty: 20 RF: 0 albuterol sulfate [ProAir HFA] 90 mcg/actuation HFA aerosol inhaler 2 puff INHALATION Q6H PRN (Reason: shortness of breath or wheezing) Qty: 8.5 RF: 0 acetaminophen [Tylenol Extra Strength] 500 mg Tablet 1,000 - 2,000 mg PO PRN RF: 0 Tums 1 - 2 tab PO PRN RF: 0 ondansetron 4 mg tablet,disintegrating 4 mg PO Q6H PRN (Reason: nausea and vomiting) Qty: 14 RF: 0 Protonix 40 mg tablet,delayed release (DR/EC) 40 mg PO DAILY Qty: 60 RF: 0 Discharge Orders: Discharge ED (Routine); Ordered 07/28/21 Ordered By: Constantine Marr Referrals: Sherly Mayer, BIOMEDICAL EQUIPMENT TECH [Primary Care Provider] - 1-3 days Discharge Diet: Advance as tolerated Discharge Activity: Resume usual activity Patient Instructions: Animal Bite (ED), Opioid Safety Coding Level of Care Code ED Hand Cigar Making Supervisor for Cassi Singh
[2021-02-05] MEDS: HYDROcodone-acetaminophen 7.5-325 mg Tablet 1 TAB PO (23:21)
[2021-02-05] MEDS: tetanus-dipt-pertussis 0.5 mL SDV IM (23:21)
== END 2021-02-05 23:22 | disposition home or self-care (01) ==
PROVIDERS: Emergency Provider Emergency Medicine; PCP Nurse Practitioner Family
DX: S81.851A Open bite, right lower leg, initial encounter (principal); J45.909 Unspecified asthma, uncomplicated; W54.0XXA Bitten by dog, initial encounter
CPT/HCPCS: 90471; 90715; 99283

== ENCOUNTER 2021-04-28 08:58 | Emergency (ER) | payer SELFPAY ==
--- NOTE | 2021-04-28 09:00 | XRR_ITS ---
PROCEDURE INFORMATION: Exam: XR Right Shoulder Exam date and time: 04/28/2021 9:00 AM Age: 30 years old Clinical indication: Pain and injury or trauma; Fall; Blunt trauma (contusions or hematomas); Right; Injury date: 04/26/21; Injury details: RT shoulder pain extending from SC joint of clavicle to ac joint; PT fell in [employer] on Wednesday (04/26); PT wouldn't move arm due to pain and we didnt want to expose again on y view due to possible ; Additional info: Fall pain TECHNIQUE: Imaging protocol: XR Right shoulder. Views: 2 or more views. COMPARISON: CR (CHEST, ) 01/02/2021 6:15 PM FINDINGS: Bones/joints: Normal. Soft tissues: Normal. XR/XR shoulder RT min 2V* [id number] IMPRESSION: No acute findings. Radiation Dose CTDIVOL = (mGy): DLP = (mGy-cm)
[2021-04-28 09:06] VITALS: BP 139/80; PULSE 80; RESP 16; TEMP 36.9; O2SAT 97; BMI 38.7
[2021-04-28 09:16] VITALS: BP 139/80; PULSE 75; RESP 16; TEMP 36.7; O2SAT 98
--- NOTE | 2021-04-28 09:24 | W.ED.FALL ---
HPI - Fall General: Chief Complaint: Fall Stated Complaint: RUE INJURY - TRIPPED WEDNESDAY,INJURED R SHOULDER Time Seen by Provider: 04/28/21 09:00 History of Present Illness: HPI Narrative: 30-year-old female presents to the emergency room with complaint of a fall. She fell 2 days ago while walking. She fell from a standing landed on her right shoulder. She is complaining difficulty with abduction. Family member with her states that there is a corn maze she stumbled. They thought it dislocated and they relocated it immediately after. She did not seek any evaluation immediately after this happened. No previous injury to the right shoulder or surgeries on the right shoulder in the past. MD complaint: fall Onset (ago): day(s) Fall from: standing Fall witnessed: yes, by family Place fall occurred: street ([address] [place] in [place]) Loss of consciousness: None Prolonged down time: no Context: tripped/slipped Location of injury - extremities: Right: shoulder Severity: moderate Quality: aching Associated symptoms-after fall: Denies abdominal pain, chest pain, confusion, difficulty walking, headache(s), hematuria, lightheadedness, neck pain, numbness, short of breath, vertigo or weakness Review of Systems Const: Denies: fever(s), chills, body aches, change in appetite, fatigue or malaise ENMT: Denies: throat pain, ear or mastoid pain, nasal discharge or nasal congestion Card: Denies: chest pain or lightheadedness Resp: Denies: dyspnea, productive cough or non-productive cough GI: Denies: abdominal pain : Denies: hematuria Musc: Denies: neck pain Skin/Breast: Denies: rash or pruritus Neuro: Denies: headache(s), difficulty walking, vertigo or confusion PFS ED PFSH: Medical History Asthma No pertinent past medical history Social History Smoking and tobacco status: never smoked Female Reproductive History: Date of last menstrual period: 02/04/21 Physical Exam Const: COMMON NORMALS: no acute distress GENERAL APPEARANCE: cooperative and comfortable ORIENTATION/CONSCIOUSNESS: Yes awake, Yes oriented to person, Yes oriented to place and Yes oriented to time HENMT: COMMON NORMALS: normocephalic, atraumatic and hearing grossly normal bilaterally HEAD & SCALP: normocephalic and atraumatic Neck/C-Spine: COMMON NORMALS: no JVD Resp: COMMON NORMALS: normal respiratory effort, No retractions, No use of accessory muscles and clear to auscultation bilaterally AUSCULTATION: clear to auscultation bilaterally Cardio: COMMON NORMALS: no JVD, regular rate, regular rhythm and No murmurs present (Cardio) RATE: regular rate RHYTHM: regular rhythm GI: COMMON NORMALS: Soft to palpation and No hepatosplenomegaly present AUSCULTATION: Yes normoactive bowel sounds PALPATION: Yes Soft to palpation, No Tenderness to palpation present (GI), No Guarding due to palpation present (GI) and Yes No hepatosplenomegaly present Extremity: COMMON NORMALS: normal to inspection, capillary refill normal, no clubbing, cyanosis or edema, no calf tenderness and no pedal edema OTHER: Limited abduction external rotation in neutral position elicits pain unable to really do an apprehension test cannot get patient into position due to discomfort. There is no crepitus proximal portion of the humerus is palpably intact. Neurovascularly intact. Neuro: SENSORIUM/ORIENTATION: Yes oriented to person, Yes oriented to place and Yes oriented to time Skin: COMMON NORMALS: no rashes or lesions noted GENERAL SKIN EXAM: no rashes or lesions noted Course Vital Signs: Vital signs: Vital Signs Temperature 98.0 F 04/28/21 09:16 Pulse Rate 75 04/28/21 09:16 Respiratory Rate 16 04/28/21 09:16 Blood Pressure 139/80 04/28/21 09:16 Pulse Oximetry 98 04/28/21 09:16 MDM - Fall MDM Narrative: Medical decision making narrative: X-rays unremarkable. Placed in a sling referred to Ortho no use of the right arm until she sees Ortho continue the sling until she is evaluated there as well. Discharge Plan Discharge Patient Disposition: Home Clinical Impression: Acute shoulder pain Condition: Stable Prescriptions: New Voltaren Arthritis Pain 1 % gel 4 g topical QID Qty: 100 RF: 0 No Action albuterol sulfate [ProAir HFA] 90 mcg/actuation HFA aerosol inhaler 2 puff INHALATION Q6H PRN (Reason: shortness of breath or wheezing) Qty: 8.5 RF: 0 Discharge Orders: Discharge ED (Routine); Ordered 04/28/21 Ordered By: Hernandez Marcos Referrals: Sherly Mayer FNP [Primary Care Provider] - Discharge Diet: Usual diet Discharge Activity: Limit activity as instructed Patient Instructions: Opioid Safety Activity Restrictions/Additional Instructions: Follow-up with orthopedics. Case management will call to make arrangements. Use sling until you follow-up with orthopedics Coding Level of Care Code ED Allergist/Immunologist Physician for Chg Fwd Exam Comprehensive
--- NOTE | 2021-04-28 13:46 | DCPLANNER ---
project manager entertainment and media had message to schedule a follow up appointment for patient with ortho. project manager entertainment and media called the ortho clinic, spoke with Laney, gave clinic patients information. project manager entertainment and media was told that patients information would be printed and reviewed. Clinic will call patient with appointment information.
--- NOTE | 2021-05-02 13:37 | DCPLANNER ---
Patient had a follow up appointment scheduled for 04.29.21 with ortho - patient did attend appointment.
== END 2021-04-28 09:53 | disposition home or self-care (01) ==
PROVIDERS: Emergency Provider Family Medicine; PCP Nurse Practitioner Family
DX: M25.511 Pain in right shoulder (principal)
CPT/HCPCS: 73030; 99281

== ENCOUNTER → 2021-05-13 08:00 | Outpatient (BNVA) | payer SELFPAY | PROVIDERS: PCP Nurse Practitioner Family; Visit Provider Physician Assistant | DX: S43.004A Unspecified dislocation of right shoulder joint, initial encounter (principal); X58.XXXA Exposure to other specified factors, initial encounter | CPT/HCPCS: 73030 ==

== ENCOUNTER 2021-06-09 16:45 | Outpatient (CLI) | payer SELFPAY ==
--- NOTE | 2021-06-09 16:00 | MR_ITS ---
WS: [id number] MRI RIGHT SHOULDER NONCONTRAST TECHNIQUE: Sagittal T2, coronal T1, T2 and proton density imaging. Axial gradient PDE imaging. CLINICAL INFORMATION: M25.511 - Pain in right shoulder COMPARISON: None. FINDINGS: Mild degenerative arthritis AC joint. Slight subacromial spurring. Mild narrowing of the subacromial space.Trace edema at the AC joint. Tiny intrasubstance tear distal supraspinatus just deep to the tip of the acromion. Tendinopathy dist al supraspinatus. Normal infraspinatus. Normal teres minor. Fluid in the subcoracoid bursa. Normal bi ceps tendon in the bicipital groove. Intra-articular biceps tendon is normal. Slight irregularity anterior superior labrum suspicious for SLAP tear with anterior posterior extensi on. Biceps labral anchor appears intact. This can be further evaluated with gadolinium if indicated. Normal bone marrow signal in the humeral head and glenoid. Tiny joint effusion. MR/MR shoulder RT wo con* [id number] IMPRESSION: 1. Irregularity anterior superior labrum suspicious for SLAP tear with anterio r posterior extension. This can be further evaluated with arthrogram if indicat ed. 2. Biceps labral anchor appears intact. Normal biceps tendon in the bicipital groove. 3. Small joint effusion and subcoracoid effusion. 4. Tiny intrasubstance tear distal supraspinatus with tendinopathy. Rotator cu ff otherwise normal. 5. Normal bone marrow signal in the humeral head and glenoid. No evidence of c ontusion.
== END 2021-06-09 16:46 | disposition home or self-care (01) ==
LOC: RADSHAW 16:48
PROVIDERS: PCP Nurse Practitioner Family; Visit Provider Physician Assistant
DX: S43.004A Unspecified dislocation of right shoulder joint, initial encounter (principal); X58.XXXA Exposure to other specified factors, initial encounter; M25.411 Effusion, right shoulder; M75.101 Unspecified rotator cuff tear or rupture of right shoulder, not specified as traumatic
CPT/HCPCS: 73221

== ENCOUNTER 2021-07-09 06:00 | Outpatient (RCR) | payer SELFPAY | END 2021-07-11 23:59 | disposition home or self-care (01) | LOC: SPT 06:00 | PROVIDERS: PCP Nurse Practitioner Family; Referring Provider Orthopaedic Surgery; Visit Provider Orthopaedic Surgery | DX: S43.431A Superior glenoid labrum lesion of right shoulder, initial encounter (principal); M25.511 Pain in right shoulder; W19.XXXA Unspecified fall, initial encounter; Y92.79 Other farm location as the place of occurrence of the external cause | CPT/HCPCS: 97161 ==

== ENCOUNTER 2021-07-12 06:00 | Outpatient (RCR) | payer SELFPAY | END 2021-08-11 23:59 | disposition home or self-care (01) | LOC: SPT 06:00 | PROVIDERS: PCP Nurse Practitioner Family; Referring Provider Orthopaedic Surgery; Visit Provider Orthopaedic Surgery | DX: S43.431D Superior glenoid labrum lesion of right shoulder, subsequent encounter (principal); X58.XXXD Exposure to other specified factors, subsequent encounter | CPT/HCPCS: 97110; 97140 ==

== ENCOUNTER → 2021-08-15 12:45 | Outpatient (BNVA) | payer OTHER, SELFPAY | PROVIDERS: PCP Nurse Practitioner Family; Visit Provider Orthopaedic Surgery | DX: Z20.822 Contact with and (suspected) exposure to COVID-19 (principal) | CPT/HCPCS: 87635 ==

== ENCOUNTER 2021-08-21 08:00 | Day surgery (SDC) | payer MEDICAID, SELFPAY ==
[2021-08-20 13:09] VITALS: BMI 37.1
[2021-08-21] VITALS (13 sets, daily range): BP systolic 117–160; BP diastolic 71–95; PULSE 72–91; RESP 14–18; TEMP 36.6–37; O2SAT 94–100
[2021-08-21 08:14] LABS: OR HCG Qualitative Urine Negative (Negative)
[2021-08-21] MEDS: acetaminophen 500 mg Tablet 1000 MG PO (08:42)
[2021-08-21] MEDS: sodium chloride 0.9% 1,000 ML 30 ML IV (08:42)
--- NOTE | 2021-08-21 09:03 | ANES.PREANE2 ---
Pre-Anesthetic Assessment Height/Weight: Height 1.68 m Weight 104.326 kg Temp Pulse Resp BP Pulse Ox 97.9 F 76 16 117/79 99 08/21/21 08:10 08/21/21 09:02 08/21/21 09:02 08/21/21 09:02 08/21/21 09:02 Preop Diagnosis: Superior labral Tear right shoulder Operation Date: 08/21/21 09:15 Proposed Procedures p Shoulder Arthroscopy with Labral Repair [id number] S43.439A(Right) - Reuben Mcneill MD Familial anesthetic complications: nohne Was Beta Abraham taken within 24 hours: N/A Was Clonidine taken within 24 hours: N/A Last intake: Intake Last Liquid Date 08/20/21 Last Liquid Time 19:00 Last Solid Date 08/20/21 Last Solid Time 19:00 Social No alcohol and No tobacco Exam alert, oriented x 3, clear to auscultation bilaterally and regular rate & rhythm Airway Mallampati: Class III Dentition: chipped Pulmonary Asthma Metabolic Morbid Obesity Anesthetic Plan ASA status: 2 Anesthesia: General and Regional (specify below) Medications/Allergies Home Medications Medication Instructions Recorded Confirmed Last Taken Type albuterol sulfate 90 mcg/actuation 2 puff INHALATION Q6H PRN #8.5 gm 04/02/20 08/21/21 08/21/21 06:00 Rx aerosol inhaler (ProAir HFA) Allergies Allergy/AdvReac Type Severity Reaction Status Date / Time amoxicillin [From Augmentin] Allergy Unknown Verified 07/30/21 12:53 clavulanic acid Allergy Unknown Verified 07/30/21 12:53 [From Augmentin] coconut Allergy ALGY-Swell Verified 07/30/21 12:53 Lip/Tongue/Throat Latex, Natural Rubber Allergy ADR-Itching Verified 08/20/21 13:08 red (food color) Allergy ALGY-Swell Verified 07/30/21 12:53 Lip/Tongue/Throat shrimp Allergy ALGY-Swell Verified 07/30/21 12:53 Lip/Tongue/Throat Current Medications Generic Name Dose Route Start Last Admin Trade Name Freq PRN Reason Stop Dose Admin Sodium Chloride 1,000 mls @ 30 mls/hr 08/21/21 07:45 08/21/21 08:42 Sodium Chloride 0.9% IV 08/22/21 07:44 30 mls/hr .Q24H RAMESH Administration PFSH Anesthesia Medical History Asthma No pertinent past medical history Female Reproductive History Date of last menstrual period: 02/04/21 Data Anesthesia Cardiac Studies: No Data to Display
--- NOTE | 2021-08-21 09:04 | ANES.PROC ---
Anesthesia Procedures Procedure/Date: 08/21/21 Nerve Block ^: Nerve Block 1: Main Anesthesia: general anesthesia Time Out Performed: Yes Consent: requested by attending/covering physician, from patient, risks and benefits reviewed and patient agrees to proceed Nerve block location: interscalene (R) Anesthesia monitors applied: pulse oximetry, EKG and BP cuff Nerve block position: semi sitting Anesthetic Used: ropivicaine 0.5% (20) and with decadron (3 mg) Ultrasound used to: recognize landmarks and visualize and ID interscalene groove Nerve Stimulator Used?: No Interscalene/Femoral BLK: 2 stimuplex 22 g needle used for position and inplane approach, visualize local anesthetic spread and no vascular puncture identified Injection: neg aspiration of heme Patient Tolerated Procedure: well and no complications Complications: none
--- NOTE | 2021-08-21 09:08 | W.PM.OPSUD ---
Surgery/Procedure H&P Update DATE OF PROCEDURE: August 21, 2021 DATE H&P PERFORMED: 07/28/21 H&P UPDATE INFORMATION: I have reviewed H&P completed within last 30 days PREOP DIAGNOSIS: Superior labral Tear right shoulder PLANNED PROCEDURE: Operation Date: 08/21/21 09:15 Proposed Procedures p Shoulder Arthroscopy with Labral Repair [id number] S43.439A(Right) - Reuben Mcneill MD
--- NOTE | 2021-08-21 11:23 | P.OP_ITS ---
Operative Report Date of procedure: August 21, 2021 Pre-op diagnosis: Preop Diagnosis Superior labral Tear right shoulder Post-op diagnosis: Anterior labral tear right shoulder Procedure done: Arthroscopic Bankart repair right shoulder Implants: [employer] Q fix x3 Pathology: none sent Surgeon: Reuben Mcneill Anesthesia: General and Nerve Block (Interscalene) Estimated blood loss (mL): 10 Complications: None Findings: The patient was found to have a anterior labral tear (Bankart lesion) beginning from approximately the 1 o'clock position extending down to the 5:30 position. She had a corresponding Hill-Sachs lesion consisting of a area of a full- thickness cartilage loss over area approximately 8 x 15 mm. There was no associated subchondral bone damage after repair of the Hill-Sachs lesion the defect was found not to engage. Condition: stable Disposition: PACU Procedure: Ms. Armstrong was given an interscalene block by anesthesia. She was taken to the operating room and given 2 g of Ancef and a general anesthesia. She was positioned in the lateral position with the right arm in 20 pounds of traction due to the size of her arm. A timeout was performed. A port to her portals by 2 cm inferior medial to the posterior cortical acromion a scope cannula trocar driven into the glenohumeral joint an 8 mm working cannula was placed anterio rly. The superior labrum was carefully probed. There was thought to be a slightly medialized attachment but no obvious tearing. The biceps tendon was inspected the wound and found to be healthy. There was however labral tearing identified the anterior labrum approximately 2:00 to the 5:30 position. The humeral head was inspected revealing the above cartilaginous Hill-Sachs lesion. The margins of the humeral head defect were lightly debrided with incisor shaver but there really were no significant large unstable flaps or fissures to benefit from debridement. Attention was then focused on the glenoid. Initially working with an incisor shaver and later on rasp the anterior labrum was a mobilized from approximately 2:00 to the 5:30 position. Through a small anterior stab wound a acute single Q fix anchor was placed in approximately the 5 o'clock position. A suture passer was used to shuttle a loop suture through the inferior capsule and labrum at approximately the 5:30 position grabbing approximately 8 mm of the capsule and labrum. This was used to shuttle 1 limb of anchor suture through the capsule/labral and the sutures were tied through the anterior working portal. This was repeated at approximately the 330 and 2:00 positions with 2 additional anchors repairing the detached labrum. The shoulder was then taken out of traction and brought through range of motion. With abduction external rotation the Hill-Sachs lesion was not felt to engage. The shoulder was irrigated with saline. Portals were closed with 3-0 Prolene. Sterile dressings were applied. The patient placed in abduction pillow, extubated, and taken to recovery in stable condition.
--- NOTE | 2021-08-21 11:35 | P.PCN_ITS ---
PACU note Narrative: VSS, Good respiratory effort, report to SHARK BIOLOGIST Exam: awake
--- NOTE | 2021-08-21 11:35 | PM.PACU ---
PACU note Narrative: VSS, Good respiratory effort, report to POT OPERATOR Exam: awake
[2021-08-21] MEDS: fentaNYL 50 mcg/mL INJ 2mL IVP (11:40)
[2021-08-21] MEDS: ondansetron 2 mg/ML SDV 2 mL 4 MG IVP (11:49)
[2021-08-21] MEDS: oxyCODONE-APAP 5-325 mg Tablet 1 TAB PO (13:00)
--- NOTE | 2021-08-21 14:18 | ANE.PACU2 ---
Inpatient post-anesthesia follow up: Airway intact: Yes Vital signs: Temperature 98.6 F Pulse Rate 80 Respiratory Rate 16 Blood Pressure 140/84 Pulse Oximetry 96 Oxygen Delivery Me thod Room Air Oxygen Flow Rate 6 Fraction of Inspir ed Oxygen Hydration adequate: Yes Nausea and vomiting: Yes Pain level: 2 Mental status: Baseline
== END 2021-08-21 13:10 | disposition home or self-care (01) ==
PROVIDERS: Anesthesiology; PCP Nurse Practitioner Family; Visit Provider Orthopaedic Surgery
PROC: (CPT 29805; principal; 2021-08-21 09:15)
DX: S43.431A Superior glenoid labrum lesion of right shoulder, initial encounter (principal); X58.XXXA Exposure to other specified factors, initial encounter; J45.909 Unspecified asthma, uncomplicated; E66.01 Morbid (severe) obesity due to excess calories; Z68.37 Body mass index [BMI] 37.0-37.9, adult
CPT/HCPCS: 29806; 64415; 76942; 84703; C1713; J0690; J1100; J2405; J2704; J2710; J2795; J3010; J3490; J7030

== ENCOUNTER 2021-09-16 06:00 | Outpatient (RCR) | payer MEDICAID, SELFPAY | END 2021-10-09 23:59 | disposition home or self-care (01) | LOC: SPT 06:00 | PROVIDERS: PCP Nurse Practitioner Family; Referring Provider Orthopaedic Surgery; Visit Provider Orthopaedic Surgery | DX: Z47.89 Encounter for other orthopedic aftercare (principal) | CPT/HCPCS: 97110; 97140; 97161 ==

== ENCOUNTER 2021-09-30 11:08 | Emergency (ER) | payer MEDICAID, SELFPAY ==
--- NOTE | 2021-09-30 11:13 | XR_ITS ---
WS: [id number] RIGHT SHOULDER: 3 VIEW(S) TECHNIQUE: Internal and external rotation with Y view. HISTORY: trauma/injury; recent surgery COMPARISON: None available. No fracture or dislocation or soft tissue abnormality. Glenohumeral and AC joints are unremarkable. XR/XR shoulder RT min 2V* [id number] IMPRESSION: Normal RIGHT shoulder.
[2021-09-30 11:14] VITALS: BP 126/88; PULSE 121; RESP 18; TEMP 37.2; O2SAT 95; BMI 37.1
--- NOTE | 2021-09-30 11:21 | W.ED.EXTPRO ---
HPI - Extremity Problem General: Chief complaint: Extremity Injury, Upper Stated complaint: Fell on shoulder she had surgery on Time Seen by Provider: 09/30/21 11:20 History of Present Illness: Ms. Armstrong is a 30-year-old lady with pertinent history of anterior labral repair/arthroscopy performed on 08/21/2021 who presents to the emergency department due to fall in the shower with shoulder pain. She reports pain to baseline health recently and slipped while in the shower this morning. She denies prodromal symptoms including dizziness, lightheadedness, shortness of breath, chest pain. She denies head strike or loss of consciousness. Pain is isolated to the right shoulder both anteriorly and posteriorly. She is in a shoulder immobilizer at this time. She denies sensory or motor changes distally. Pain is sharp aching and 10/10 as rated by patient. Overall course has persisted. No other specific changes in health, exacerbating, or alleviating factors identified. Onset (ago): minute(s) Pain Consistency: constant Location: right and upper extremity Severity scale (1-10): 10 Quality: aching and sharp Radiation: none Relieving factors: nothing Associated symptoms: Reports no associated symptoms Context: recent surgery/procedure Review of Systems General: Reports: 10 or more systems reviewed and unremarkable except in HPI and below PFSH ED PFSH: Medical History Asthma No pertinent past medical history Surgical History History of arthroscopic procedure on shoulder Family History Denies family history of Clotting disorder Bleeding disorder Social History Smoking and tobacco status: never smoked Female Reproductive History: Date of last menstrual period: 02/04/21 Physical Exam Const: COMMON NORMALS: alert GENERAL APPEARANCE: cooperative and well developed HENMT: COMMON NORMALS: normocephalic and atraumatic HEAD & SCALP: normocephalic and atraumatic Eye: COMMON NORMALS: conjunctivae normal CONJUNCTIVA: Yes conjunctivae normal SCLERA: sclerae normal Neck/C-Spine: COMMON NORMALS: supple GENERAL: Yes trachea midline Resp: COMMON NORMALS: normal respiratory effort and clear to auscultation bilaterally EFFORT & INSPECTION: Yes able to speak in complete sentences AUSCULTATION: clear to auscultation bilaterally Cardio: COMMON NORMALS: regular rhythm RATE: tachycardic RHYTHM: regular rhythm GI: COMMON NORMALS: Soft to palpation PALPATION: Yes Soft to palpation and No Tenderness to palpation present (GI) PERCUSSION: normal to percussion Extremity: NARRATIVE EXTREMITY EXAM: mild ttp anterior shoulder line, no obvious deformity GENERAL: Yes normal exam except as noted and No edema Neuro: COMMON NORMALS: moves all extremities SENSORIUM/ORIENTATION: Yes alert and No Orientation impaired Psych: COMMON NORMALS: mental status grossly normal and Normal thought process present THOUGHT PROCESS: Normal thought process present Course ED course: - Patient was seen and evaluated by me at bedside -Vital signs obtained - Initial evaluation notable for exam as above - Imaging notable for no acute fracture identified - Upon serial reexamination after treatment the patient was transiently improved and further improved with repeat analgesia - Based on patient history, evaluation, and testing as interpreted the most likely cause of the patient's condition is mechanical fall with postoperative shoulder and soft tissue related pain - The results of ED evaluation were discussed with the patient including prescriptions and/or symptomatic cares (if applicable) including appropriate and responsible use, followup plan, and return precautions. The patient verbalized understanding and felt safe for discharge. - Patient discharged in satisfactory condition. Note: Click bubbles or prepopulated aaron in note writing are used for assistance with data collection and billing and are inherently more limited than narrative and other text portions of this note. Please use narrative for additional clinical history and defer to narrative/free test for any case of contradictory information. If information appears in only free text or click bubble it should be considered present or absent as reported. Please contact note publications writer for clarifications of clinical information or contradictory information. MDM is a brief summary, contradictory or erroneous seeming information should be clarified and full note should be reviewed. Vital Signs: Vital signs: Vital Signs Temperature 98.9 F 09/30/21 11:14 Pulse Rate 121 H 09/30/21 11:26 Respiratory Rate 16 09/30/21 12:39 Blood Pressure 126/88 09/30/21 11:26 Pulse Oximetry 95 09/30/21 11:26 MDM - Extremity (Nontraumatic) Medical Decision Making 30-year-old lady with history of arthroscopic shoulder procedure presented secondary to mechanical fall with shoulder pain. No other injuries identified on external exam. Shoulder x-rays negative for bony abnormality improved with treatment. Satisfactory for outpatient management. Medical Records I reviewed the patient's medical records. Lab Data I reviewed the patient's lab results. Radiology Impressions Shoulder X-Ray 09/30/21 11:13 IMPRESSION: Normal RIGHT shoulder. Discharge Plan Discharge Patient Disposition: Home Clinical Impression: Fall, Acute shoulder pain Condition: Stable Prescriptions: New oxycodone 5 mg tablet 5 mg PO Q4H PRN (Reason: pain) Qty: 14 0RF No Action albuterol sulfate [ProAir HFA] 90 mcg/actuation HFA aerosol inhaler 2 puff INHALATION Q6H PRN (Reason: shortness of breath or wheezing) Qty: 8.5 0RF oxycodone 5 mg tablet 5 mg PO Q4H PRN (Reason: pain) Qty: 40 0RF Discharge Orders: Discharge ED (Routine); Ordered 09/30/21 Ordered By: Dyllan Martines Referrals: Sherly Mayer FNP [Primary Care Provider] - Discharge Diet: Usual diet Discharge Activity: Resume usual activity Patient Instructions: Shoulder Pain (ED), Shoulder Immobilizer (ED), Opioid Safety Activity Restrictions/Additional Instructions: Thank you for visiting the emergency department. You were seen and evaluated for shoulder pain after fall. No acute bony abnormality was identified on x-ray of your shoulder. Please follow all instructions given by your surgeon. Please follow-up with your surgeon and primary care provider. Please return to the emergency department for worsening symptoms, uncontrolled pain, any new numbness or tingling, or anything else that you are concerned about and feel needs emergency department evaluation. Coding Level of Care Code ED Radioactivity Technician for Cassi Fwd Exam Comprehensive
[2021-09-30 11:26] VITALS: BP 126/88; PULSE 121; RESP 16; O2SAT 95
[2021-09-30 11:43] VITALS: RESP 16
[2021-09-30] MEDS: morphine 4 mg/mL SDV 1 mL IM (11:43)
[2021-09-30] MEDS: ketorolac 30 mg/mL INJ 15 MG IM (12:34)
[2021-09-30] MEDS: acetaminophen 500 mg Tablet 1000 MG PO (12:37)
[2021-09-30 12:39] VITALS: RESP 16
[2021-09-30] MEDS: oxyCODONE 5 mg IR Tab/Cap PO (12:39)
== END 2021-09-30 13:12 | disposition home or self-care (01) ==
PROVIDERS: Emergency Provider Emergency Medicine; PCP Nurse Practitioner Family
DX: M25.511 Pain in right shoulder (principal); W18.2XXA Fall in (into) shower or empty bathtub, initial encounter
CPT/HCPCS: 73030; 96372; 99283; J1885; J2270

== ENCOUNTER 2021-10-10 06:00 | Outpatient (RCR) | payer SELFPAY | END 2021-11-08 23:59 | disposition home or self-care (01) | LOC: SPT 06:00 | PROVIDERS: PCP Nurse Practitioner Family; Referring Provider Orthopaedic Surgery; Visit Provider Orthopaedic Surgery | DX: Z47.89 Encounter for other orthopedic aftercare (principal) | CPT/HCPCS: 97110; 97140 ==

== ENCOUNTER 2021-11-09 | Outpatient (RCR) | payer MEDICAID, SELFPAY | END 2021-12-09 23:59 | disposition home or self-care (01) | LOC: SPT | PROVIDERS: PCP Nurse Practitioner Family; Referring Provider Orthopaedic Surgery; Visit Provider Orthopaedic Surgery | DX: Z98.890 Other specified postprocedural states (principal) | CPT/HCPCS: 97110; 97140 ==

== ENCOUNTER 2021-11-14 21:22 | Emergency (ER) | payer MEDICAID, SELFPAY ==
[2021-11-14 21:49] VITALS: BP 146/100; PULSE 100; RESP 18; TEMP 37.1; O2SAT 98; BMI 31.6
--- NOTE | 2021-11-14 23:16 | CTR_ITS ---
PROCEDURE INFORMATION: Exam: CT Abdomen And Pelvis Without Contrast Exam date and time: 11/14/2021 11:46 PM Age: 31 years old Clinical indication: Abdominal pain; Localized; Right lower quadrant (rlq); Patient HX: C/O rlq abd pain; Additional info: Rlq pain TECHNIQUE: Imaging protocol: Computed tomography of the abdomen and pelvis without contrast. Radiation optimization: All CT scans at this facility use at least one of these dose optimization techniques: automated exposure control; mA and/or kV adjustment per patient size (includes targeted exams where dose is matched to clinical indication); or iterative reconstruction. COMPARISON: CR XR hip LT 2-3V wo/w pel* [id number] 09/03/2020 9:47 PM RADIATION DOSE METRICS: Total DLP (mGy-cm): 2057. FINDINGS: Liver: Normal. No mass. Gallbladder and bile ducts: Collapsed gallbladder. Pancreas: Normal. No ductal dilation. Spleen: One or more accessory splenules. Adrenal glands: Normal. No mass. Kidneys and ureters: Normal. No hydronephrosis. Stomach and bowel: Mild descending and/or sigmoid colon diverticulosis without diverticulitis. Appendix: Normal appendix. Intraperitoneal space: Unremarkable. No free air. No significant fluid collection. Vasculature: Unremarkable. No abdominal aortic aneurysm. Lymph nodes: Unremarkable. No enlarged lymph nodes. Urinary bladder: Unremarkable as visualized. Reproductive: Unremarkable as visualized. Bones/joints: Unremarkable. No acute fracture. Soft tissues: Unremarkable. CT/CT kidney stone [id number] IMPRESSION: Normal appendix.
--- NOTE | 2021-11-14 23:17 | ED_ITS ---
HPI - Abdominal Pain General: Chief Complaint: Abdominal Pain Stated Complaint: pain in lower pelvic area Time Seen by Provider: 11/14/21 22:58 Source: patient History of Present Illness: 31-year-old female who started having right lower quadrant pain around 8 PM. She notes the ate dinner and then came home before she got pain. She is nauseated. She has not vomited. No diarrhea. No blood in the stool. No fever no blood in the urine, no vaginal discharge or bleeding. She does not know if she is . No history of abdominal surgery. MD elicited complaint: abdominal pain Pertinent past history: none Onset (ago): hour(s) Location: RLQ Quality: stabbing and aching Radiation: none Migration to: no migration Exacerbating factors: movement Relieving factors: nothing Associated Symptoms: Reports nausea; Denies constipation, GI cramping, diarrhea, dyspepsia, dysuria, fever(s), hematemesis, poor appetite and vomiting Related Data: Date of Last Menstrual Period: 02/04/21 Review of Systems Const: Denies: fever(s) ENMT: Denies: throat pain Card: Denies: chest pain Resp: Denies: dyspnea, productive cough or non-productive cough GI: Reports: abdominal pain and nausea; Denies: vomiting, hematemesis, diarrhea, constipation or GI cramping : Denies: flank pain, dysuria, vaginal bleeding or vaginal discharge Neuro: Denies: headache(s) [facility] ED PFSH: Medical History Asthma No pertinent past medical history Surgical History History of arthroscopic procedure on shoulder Family History Denies family history of Clotting disorder Bleeding disorder Social History Smoking and tobacco status: never smoked Female Reproductive History: Date of last menstrual period: 02/04/21 Physical Exam HENMT: COMMON NORMALS: normocephalic and Normal external nose present HEAD & SCALP: normocephalic NOSE: Normal external nose present Eye: COMMON NORMALS: Equal, round and reactive pupils present and EOMs intact bilaterally PUPIL: Yes Equal, round and reactive pupils present Chest: CHEST: Yes Symmetrical chest wall rise Resp: COMMON NORMALS: normal respiratory effort, No use of accessory muscles and clear to auscultation bilaterally AUSCULTATION: clear to auscultation bilaterally Cardio: COMMON NORMALS: regular rate and regular rhythm RATE: regular rate RHYTHM: regular rhythm GI: COMMON NORMALS: Normal to inspection, nondistended, normoactive bowel sounds present PALPATION: Yes Tenderness to palpation present (GI) Details: RLQ : COMMON NORMALS: Yes no CVA tenderness BLADDER/KIDNEY EXAM: Yes no CVA tenderness Back/Pelvis: COMMON NORMALS: no CVA tenderness Extremity: COMMON NORMALS: normal to inspection Neuro: ELDA COMA SCALE: document GCS findings Elda coma scale eye opening: Spontaneous [place] coma scale verbal response: Orientated [place] coma scale motor response: Obey commands Elda coma scale total score: 15 Course Vital Signs: Vital signs: Vital Signs Temperature 98.7 F 11/14/21 21:49 Pulse Rate 86 11/15/21 00:58 Respiratory Rate 17 11/15/21 01:33 Blood Pressure 140/92 11/15/21 00:58 Pulse Oximetry 97 11/15/21 01:33 MDM - Abdominal Pain Medical Decision Making 31 year old non female presenting with sudden onset right lower quadrant pain. No history of belly surgery. White blood cell count is 8. Hemoglobin is 10.3. BMP is normal. Minimal elevation in CRP. Liver enzymes are normal. CT reveals no evidence of appendicitis. No calculus. No other cause for right lower quadrant pain. She denies any vaginal discharge or bleeding. Pain is improved to some degree after medication. Lab Data : 11/15/21 00:00 11/15/21 00:00 Labs/Radiology: Radiology Impressions Abdomen/Pelvis CT 11/14/21 23:16 IMPRESSION: Normal appendix. Laboratory Results WBC 8.0 10^3/uL (4.0-10.0) 11/15/21 00:00 RBC 4.82 10^6/uL (4.1-5.3) 11/15/21 00:00 Hgb 10.3 g/dL (11.5-15.3) L 11/15/21 00:00 Hct 35.2 % (37.0-47.0) L 11/15/21 00:00 MCV 73.0 fl (81-99) L 11/15/21 00:00 MCH 21.4 pg (28.0-34.0) L 11/15/21 00:00 MCHC 29.3 g/dL (30.0-36.0) L 11/15/21 00:00 RDW 17.5 % (12.1-15.1) H 11/15/21 00:00 Plt Count 388 10^3/cmm (130-400) 11/15/21 00:00 MPV 10.5 fL (7.4-10.4) H 11/15/21 00:00 Neut % (Auto) 53.5 % 11/15/21 00:00 Lymph % (Auto) 34.3 % 11/15/21 00:00 Brown % (Auto) 7.8 % 11/15/21 00:00 Eos % (Auto) 3.9 % 11/15/21 00:00 Baso % (Auto) 0.4 % 11/15/21 00:00 Neut # (Auto) 4.28 10^3/uL (1.8-7.7) 11/15/21 00:00 Lymph # (Auto) 2.7 10^3/uL (0.8-4.8) 11/15/21 00:00 Brown # (Auto) 0.6 10^3/uL (0.2-0.9) 11/15/21 00:00 Eos # (Auto) 0.3 10^3/uL (0.0-0.8) 11/15/21 00:00 Baso # (Auto) 0.0 10^3/uL (0.0-0.1) 11/15/21 00:00 Nucleated RBC % (auto) 0 % 11/15/21 00:00 Nucleated RBCs # 0.0 /100WBC 11/15/21 00:00 Sodium 134 mmol/L (136-145) L 11/15/21 00:00 Potassium 4.4 mmol/L (3.5-5.1) 11/15/21 00:00 Chloride 101 mmol/L (98-107) 11/15/21 00:00 Carbon Dioxide 22 mmol/L (22-29) 11/15/21 00:00 Anion Gap 15.4 (5-19) 11/15/21 00:00 BUN 13 mg/dL (6-20) 11/15/21 00:00 Creatinine 0.5 mg/dL (0.5-0.9) 11/15/21 00:00 GFR Calculation 142.1 mL/min (90-130) H 11/15/21 00:00 Glucose 104 mg/dL (65-115) 11/15/21 00:00 Calculated Osmolality 278 mOsm/kg (285-295) L 11/15/21 00:00 Calcium 9.4 mg/dL (8.5-10.5) 11/15/21 00:00 Total Bilirubin 0.3 mg/dL (0.15-1.2) 11/15/21 00:00 AST 17 U/L (0-32) 11/15/21 00:00 ALT 15 U/L (0-33) 11/15/21 00:00 Alkaline Phosphatase 81 IU/L (35-105) 11/15/21 00:00 C-Reactive Protein 9.9 mg/L (0.0-4.9) H 11/15/21 00:00 Total Protein 7.1 g/dL (6.6-8.7) 11/15/21 00:00 Albumin 4.2 g/dL (3.5-5.2) 11/15/21 00:00 Globulin 2.9 g/dL (1.3-4.6) 11/15/21 00:00 Lipase 27 U/L (13-60) 11/15/21 00:00 HCG, Qual Negative (Negative) 11/14/21: Urine Color Yellow (Yellow) 11/14/21: Urine Appearance Clear (CLEAR) 11/14/21 23: Urine pH 5 (5-7) 11/14/21 23: Ur Specific [place] 1.030 (1.005-1.030) 11/14/21 23: Urine Protein Neg (Negative) 11/14/21: Urine Glucose (UA) Norm (Normal) 11/14/21 23: Urine Ketones Negative (Negative) 11/14/21 23: Urine Blood Neg (Negative) 11/14/21 23: Urine Nitrate Negative (Negative) 11/14/21 23: Urine Bilirubin Neg (Negative) 05/06/22 23:28 Urine Urobilinogen 1 mg/dL (Negative) H 11/14/21 23:28 Ur Leukocyte Esterase Negative (Negative) 11/14/21 23:28 Discharge Plan Discharge Patient Disposition: Home Clinical Impression: Abdominal pain Qualifiers: Abdominal location: right lower quadrant Qualified Code(s): R10.31 - Right lower quadrant pain Condition: Stable Prescriptions: New ondansetron 4 mg film 4 mg PO DAILY PRN (Reason: nausea and vomiting) Qty: 10 0RF Continued oxycodone 5 mg tablet 5 mg PO Q4H PRN (Reason: pain) Qty: 7 0RF Discontinued oxycodone 5 mg tablet 5 mg PO Q4H PRN (Reason: pain) Qty: 14 0RF No Action albuterol sulfate [ProAir HFA] 90 mcg/actuation HFA aerosol inhaler 2 puff INHALATION Q6H PRN (Reason: shortness of breath or wheezing) Qty: 8.5 0RF Discharge Orders: Discharge ED (Routine); Ordered 11/15/21 Ordered By: Rob Dougherty Referrals: Sherly Mayer, DIGITAL MARKETING ASSOCIATE [Primary Care Provider] - 1-3 days Patient Instructions: Acute Abdominal Pain (ED), Abdominal Pain (ED), Opioid Safety Activity Restrictions/Additional Instructions: Return for worsening pain despite treatment, fever greater than 100, vomiting liquids or medications, any other concerning symptoms. See your doctor next week for follow-up. A laxative may help relieve constipation which could be causing some of your symptoms. Coding Level of Care Code ED Plastics Seasoner Operator for Cassi Fwd Exam Comprehensive
[2021-11-14 23:39] LABS: Add Urine Microscopic? NO; Charge for UA Resulting for Rev
[2021-11-14 23:40] LABS: HCG Qualitative Urine. Negative (Negative)
[2021-11-14 23:44] LABS: Bilirubin Urine Neg (Negative); Blood Urine Neg (Negative); Glucose Urine UA Norm (Normal); Ketones Urine Negative (Negative); Leukocyte Esterase Urine Negative (Negative); Nitrate Urine Negative (Negative); Protein Urine Neg (Negative); Urine Appearance Clear (CLEAR); Urine Color Yellow (Yellow); Urobilinogen Urine 1 mg/dL (Negative); pH Urine 5 (5-7)
[2021-11-15 00:11] LABS: Basophils % 0.4 %; Eosinophils # 0.3 10^3/uL (0.0-0.8); Eosinophils % 3.9 %; Hematocrit 35.2 % (37.0-47.0); Hemoglobin 10.3 g/dL (11.5-15.3); Lymphocytes # 2.7 10^3/uL (0.8-4.8); Lymphocytes % 34.3 %; Mean Corpuscular HGB Conc 29.3 g/dL (30.0-36.0); Mean Corpuscular Hemoglobin 21.4 pg (28.0-34.0); Mean Platelet Volume 10.5 fL (7.4-10.4); Monocytes # 0.6 10^3/uL (0.2-0.9); Monocytes % 7.8 %; Neutrophils # 4.28 10^3/uL (1.8-7.7); Neutrophils % 53.5 %; Nucleated Red Blood Cells % 0 %; Platelet Count 388 10^3/cmm (130-400); Red Blood Count 4.82 10^6/uL (4.1-5.3); Red Cell Distribution Width 17.5 % (12.1-15.1)
[2021-11-15 00:28] LABS: Alanine Aminotransferase 15 U/L (0-33); Albumin Level 4.2 g/dL (3.5-5.2); Alkaline Phosphatase 81 IU/L (35-105); Anion Gap 15.4 (5-19); Aspartate Amino Transferase 17 U/L (0-32); Blood Urea Nitrogen 13 mg/dL (6-20); C Reactive Protein 9.9 mg/L (0.0-4.9); Calcium 9.4 mg/dL (8.5-10.5); Carbon Dioxide 22 mmol/L (22-29); Chloride 101 mmol/L (98-107); Globulin 2.9 g/dL (1.3-4.6); Glomerular Filtration Rate 142.1 mL/min (90-130); Glucose 104 mg/dL (65-115); Lipase 27 U/L (13-60); Osmolality Calculated 278 mOsm/kg (285-295); Potassium 4.4 mmol/L (3.5-5.1); Sodium 134 mmol/L (136-145); Total Bilirubin 0.3 mg/dL (0.15-1.2); Total Protein 7.1 g/dL (6.6-8.7)
[2021-11-15 00:58] VITALS: BP 140/92; PULSE 86; RESP 17; O2SAT 97
[2021-11-15 01:33] VITALS: RESP 17; O2SAT 97
[2021-11-15] MEDS: morphine 4 mg/mL SDV 1 mL IVP (01:33)
[2021-11-15] MEDS: ketorolac 30 mg/mL INJ 15 MG IVP (01:34)
== END 2021-11-15 02:51 | disposition home or self-care (01) ==
PROVIDERS: Emergency Provider Emergency Medicine; PCP Nurse Practitioner Family
DX: R10.31 Right lower quadrant pain (principal)
CPT/HCPCS: 74176; 80053; 81003; 81025; 83690; 85025; 86140; 96374; 96375; 99284; J1885; J2270

== ENCOUNTER 2021-12-09 08:06 | Emergency (ER) | payer MEDICAID, SELFPAY ==
[2021-12-09 08:12] VITALS: BP 129/91; PULSE 79; RESP 18; TEMP 36.2; O2SAT 97; BMI 30.9
--- NOTE | 2021-12-09 08:25 | CT_ITS ---
WS: [id number] CT HEAD TECHNIQUE: Noncontrast CT of the head obtained from the skullbase to the vertex. CLINICAL INFORMATION: headache COMPARISON: None. DLP: 855.[address] scans at [facility] use at least one of these dose optimization techniques: automated e xposure control; mA and/or kV adjustment per patient size (includes targeted exams where dose is matc hed to clinical indication); or iterative reconstruction. FINDINGS: No evidence of intracranial hemorrhage or mass effect. Ventricular system and basal cisterns are dominguez nt. No extra-axial fluid collections. No evidence of mass or mass effect. Normal jimenez-white different iation. Mastoid air cells are well aerated. Mild mucosal thickening in the ethmoid air cells. CT/CT head wo con* [id number] IMPRESSION: 1. No evidence of intracranial hemorrhage or mass effect 2. No acute intracranial findings.
--- NOTE | 2021-12-09 08:26 | ED_ITS ---
HPI - Headache General: Chief Complaint: Headache Stated Complaint: Headache Time Seen by Provider: 12/09/21 08:08 Source: patient Mode of arrival: ambulatory Limitations: no limitations History of Present Illness: Patient is a 31-year-old female who presents to ED today with a complaint of a headache. Patient states headache has been present over the past 3 days. She states headache initially began at rest and is located to her bilateral occipital regions. Patient tells me she has no history of headaches. She is currently rating her headache at a 10/10. She has tried OTC medications without any relief. She denies any exacerbating/provoking factors to her discomfort. It does not seem to be worsened by light, sound, bending over, movement, or exertion. She has not found anything that seems to help her discomfort. Patient is not having any visual changes, neck pain/stiffness, fevers. No recent injury or trauma. She denies any facial sensation changes, facial drooping, slurred speech, trouble with gait/ambulation. She does not complain of any numbness, tingling, loss of sensation, or weakness to her extremities. MD elicited complaint: headache Onset (ago): day(s) Location: occipital Severity: severe Pain scale (0-10): 10 Exacerbating factors: none Relieving factors: nothing Context: occurred at rest Associated symptoms: Deny chest pain, confusion, fever(s), malaise, nausea, rash or vomiting Treatments prior to arrival: acetaminophen and ibuprofen Review of Systems Const: Denies: fever(s), chills, body aches, fatigue or malaise Eyes: Denies: change in vision, blurry vision, photophobia, floaters or seeing flashes ENMT: Denies: throat pain, odynophagia, ear or mastoid pain, tinnitus, disequilibrium, nasal discharge, nasal congestion or sinus pain Card: Denies: chest pain or palpitations Resp: Denies: dyspnea GI: Denies: nausea or vomiting Musc: Denies: neck pain, back pain, extremity pain or joint pain Skin/Breast: Denies: rash Neuro: Reports: headache(s); Denies: numbness in extremities, weakness in extremities, sensory changes, lack of coordination, difficulty walking, frequent falls, dizziness, confusion, behavioral changes, Slurred speech present, difficulty communicating thoughts or seizure-like activity PFSH ED PFSH: Medical History Asthma No pertinent past medical history Surgical History History of arthroscopic procedure on shoulder Family History Denies family history of Clotting disorder Bleeding disorder Social History Smoking and tobacco status: never smoked Female Reproductive History: Date of last menstrual period: 02/04/21 Physical Exam Const: COMMON NORMALS: no acute distress, patient oriented x3, no limitations and alert GENERAL APPEARANCE: cooperative NUTRITIONAL APPEARANCE: obese ORIENTATION/CONSCIOUSNESS: Yes awake, Yes oriented to person, Yes oriented to place and Yes oriented to time HENMT: COMMON NORMALS: normocephalic and atraumatic HEAD & SCALP: normal to inspection, normocephalic, atraumatic and occipital foramen tenderness HEAD IMAGES: 1. 2. TTP bilateral occipital regions FACE & SINUS: normal facial exam and sinuses nontender Eye: GENERAL EYE: appearance normal, both eyes and all related structures and normal light reflex DIRECT OPHTHALMOSCOPY: Yes normal light reflex Neck/C-Spine: COMMON NORMALS: full ROM, no lymphadenopathy and no meningeal signs GENERAL: Yes normal visual inspection CERVICAL SPINE: No pain with cervical ROM Resp: COMMON NORMALS: normal respiratory effort and clear to auscultation bilaterally AUSCULTATION: clear to auscultation bilaterally Cardio: COMMON NORMALS: regular rate and regular rhythm RATE: regular rate RHYTHM: regular rhythm Back/Pelvis: COMMON NORMALS: thoracic and lumbar spine normal to inspection, no thoracic nor lumbar tenderness and thoraco-lumbar ROM normal Extremity: COMMON NORMALS: normal to inspection GENERAL: Yes normal exam except as noted Neuro: ELDA COMA SCALE: document GCS findings [place] coma scale eye opening: Spontaneous [place] coma scale verbal response: Orientated [place] coma scale motor response: Obey commands [place] coma scale total score: 15 COMMON NORMALS: patient oriented x3, CN's II-XII intact bilaterally, moves all extremities, no focal motor deficits and no sensory deficits noted SENSORIUM/ORIENTATION: Yes alert, Yes oriented to person, Yes oriented to place and Yes oriented to time MENINGEAL SIGNS: Yes no meningeal signs Skin: COMMON NORMALS: no rashes or lesions noted GENERAL SKIN EXAM: no rashes or lesions noted Course Vital Signs: Vital signs: Vital Signs Temperature 97.2 F L 12/09/21 08:12 Pulse Rate 79 12/09/21 08:12 Respiratory Rate 18 12/09/21 08:12 Blood Pressure 129/91 12/09/21 08:12 Pulse Oximetry 97 12/09/21 08:12 MDM - Headache Medical Decision Making Patient has no red flag signs or symptoms on history of physical exam in regards to her headache. Her head CT is negative. Headache is down from a 10/10 to a 4/10. She feels comfortable going home at this time. Recommend if headaches persist she needs to follow-up with her PCP for further evaluation. Lab Data Radiology Impressions Head CT 12/09/21 08:25 IMPRESSION: 1. No evidence of intracranial hemorrhage or mass effect 2. No acute intracranial findings. Discharge Plan Discharge Patient Disposition: Home Clinical Impression: Headache Qualifiers: Headache type: unspecified Headache chronicity pattern: acute headache Intractability: not intractable Qualified Code(s): R51.9 - Headache, unspecified Condition: Stable Prescriptions: No Action albuterol sulfate [ProAir HFA] 90 mcg/actuation HFA aerosol inhaler 2 puff INHALATION Q6H PRN (Reason: shortness of breath or wheezing) Qty: 8.5 0RF ondansetron 4 mg film 4 mg PO DAILY PRN (Reason: nausea and vomiting) Qty: 10 0RF oxycodone 5 mg tablet 5 mg PO Q4H PRN (Reason: pain) Qty: 7 0RF Discharge Orders: Discharge ED (Routine); Ordered 12/09/21 Ordered By: Lu Lott Referrals: Sherly Mayer FNP [Primary Care Provider] - Patient Instructions: Headache, Acute Headache (DC) Coding Level of Care Code ED Floating Derrick Operator for Chg Fwd Exam Comprehensive
[2021-12-09] MEDS: ketorolac 60 mg/2 mL INJ 30 MG IVP (08:44)
[2021-12-09] MEDS: ondansetron 2 mg/ML SDV 2 mL 4 MG IVP (08:45)
[2021-12-09] MEDS: dexamethasone 10 mg/mL INJ 8 MG IV (08:45)
[2021-12-09] MEDS: sodium chloride 0.9% 1,000 ML 999 ML IV (08:45)
[2021-12-09] MEDS: diphenhydrAMINE 50 mg/mL SDV 1mL IVP (08:45)
[2021-12-09 10:07] VITALS: BP 136/51; PULSE 81; RESP 18; TEMP 36.6; O2SAT 99
== END 2021-12-09 10:13 | disposition home or self-care (01) ==
PROVIDERS: Emergency Provider Physician Assistant; PCP Nurse Practitioner Family
DX: R51.9 Headache, unspecified (principal)
CPT/HCPCS: 70450; 96361; 96374; 96375; 99284; J1100; J1200; J1885; J2405; J7030

== ENCOUNTER 2021-12-10 06:00 | Outpatient (RCR) | payer SELFPAY | END 2021-12-10 23:59 | disposition home or self-care (01) | LOC: SPT 06:00 | PROVIDERS: PCP Nurse Practitioner Family; Referring Provider Orthopaedic Surgery; Visit Provider Orthopaedic Surgery | DX: Z47.89 Encounter for other orthopedic aftercare (principal) | CPT/HCPCS: 97110 ==

== ENCOUNTER → 2022-03-02 09:11 | Outpatient (BNVA) | payer MEDICAID, SELFPAY | PROVIDERS: PCP Nurse Practitioner Family; Visit Provider Family Medicine | DX: N92.6 Irregular menstruation, unspecified (principal); Z32.00 Encounter for pregnancy test, result unknown; R30.0 Dysuria | CPT/HCPCS: 81000; 81025 ==

== ENCOUNTER 2022-03-04 11:06 | Emergency (ER) | payer MEDICAID, SELFPAY ==
[2022-03-04 11:12] VITALS: BP 138/90; PULSE 83; RESP 16; TEMP 36.7; O2SAT 97
--- NOTE | 2022-03-04 11:54 | W.ED.GENADLT ---
HPI - General Adult General: Chief complaint: Vaginal Bleeding Stated complaint: 15 weeks preg, spotting Time Seen by Provider: 03/04/22 11:47 History of Present Illness: 31-year-old female presenting today with concerns for possible miscarriage. Patient was seen 2 days ago by her primary care doctor for concern of delayed period. She underwent a test at that time. Noting it was negative. She notes that today she started to have passage of large clots. She will often have regular periods in which she will go 2 to 3 months without a period. She notes that today she started to have significant cramping and vaginal bleeding. Is concerned she had a miscarriage. Review of Systems General: Reports: 10 or more systems reviewed and unremarkable except in HPI and below PFSH ED PFSH: Medical History Asthma No pertinent past medical history Surgical History History of arthroscopic procedure on shoulder Family History Denies family history of Clotting disorder Bleeding disorder Social History Smoking and tobacco status: never smoked Female Reproductive History: Date of last menstrual period: 02/04/21 Para: 0 Spontaneous abortions: Yes Physical Exam Const: COMMON NORMALS: no acute distress, patient oriented x3 and alert GENERAL APPEARANCE: cooperative ORIENTATION/CONSCIOUSNESS: Yes awake, Yes oriented to person, Yes oriented to place and Yes oriented to time HENMT: COMMON NORMALS: normocephalic, atraumatic, external ears normal, Normal external nose present and moist oral mucous membranes HEAD & SCALP: normal to inspection, normocephalic and atraumatic NOSE: Normal external nose present GENERAL EAR: hearing grossly impaired EXTERNAL EAR: Yes external ears normal Eye: COMMON NORMALS: Equal, round and reactive pupils present, EOMs intact bilaterally, conjunctivae normal and no scleral icterus GENERAL EYE: appearance normal, both eyes and all related structures EYELID: eyelids normal CONJUNCTIVA: Yes conjunctivae normal SCLERA: sclerae normal PUPIL: Yes Equal, round and reactive pupils present Neck/C-Spine: COMMON NORMALS: full ROM, supple and no JVD GENERAL: Yes normal visual inspection Lymph: LYMPHATIC: no lymphadenopathy noted and no lymphedema noted Chest: COMMONS NORMALS: normal inspection of the chest Resp: COMMON NORMALS: normal respiratory effort, No retractions and No use of accessory muscles Cardio: COMMON NORMALS: no JVD, regular rate and regular rhythm RATE: regular rate RHYTHM: regular rhythm GI: COMMON NORMALS: Normal to inspection, nondistended, normoactive bowel sounds present : COMMON NORMALS: Yes no CVA tenderness BLADDER/KIDNEY EXAM: Yes no CVA tenderness Back/Pelvis: COMMON NORMALS: no CVA tenderness and thoracic and lumbar spine normal to inspection Extremity: COMMON NORMALS: normal to inspection, full ROM and capillary refill normal GENERAL: Yes normal exam except as noted Neuro: COMMON NORMALS: patient oriented x3, CN's II-XII intact bilaterally, moves all extremities, no focal motor deficits, no sensory deficits noted and gait normal SENSORIUM/ORIENTATION: Yes alert, Yes oriented to person, Yes oriented to place and Yes oriented to time Psych: COMMON NORMALS: mental status grossly normal, Normal thought process present, cooperative and normal affect THOUGHT PROCESS: Normal thought process present Skin: COMMON NORMALS: no rashes or lesions noted and no wounds GENERAL SKIN EXAM: no rashes or lesions noted Course Vital Signs: Vital signs: Vital Signs Temperature 98.0 F 03/04/22 12:24 Pulse Rate 90 03/04/22 12:24 Respiratory Rate 18 03/04/22 12:24 Blood Pressure 132/94 03/04/22 12:24 Pulse Oximetry 97 03/04/22 12:24 Oxygen Delivery Me thod 03/04/22 12:24 [facility] - General Adult Medical Decision Making 31-year-old female presenting today with vaginal bleeding. hCG urine 2 days ago was negative. hCG today is within normal range. No evidence of miscarriage. Likely delayed period. Will refer on to OB for further evaluation of dysmenorrhea. Patient was given strict return cautions and recommended routine outpatient follow-up. Lab Data : 03/04/22 12:57 03/04/22 12:57 Laboratory Results WBC 8.2 10^3/uL (4.0-10.0) 03/04/22 12:57 RBC 5.42 10^6/uL (4.1-5.3) H 03/04/22 12:57 Hgb 12.0 g/dL (11.5-15.3) 03/04/22 12:57 Hct 39.5 % (37.0-47.0) 03/04/22 12:57 MCV 72.9 fl (81-99) L 03/04/22 12:57 MCH 22.1 pg (28.0-34.0) L 03/04/22 12:57 MCHC 30.4 g/dL (30.0-36.0) 03/04/22 12:57 RDW 17.2 % (12.1-15.1) H 03/04/22 12:57 Plt Count 336 10^3/cmm (130-400) 03/04/22 12:57 MPV 11.1 fL (7.4-10.4) H 03/04/22 12:57 Neut % (Auto) 67.8 % 03/04/22 12:57 Lymph % (Auto) 24.0 % 03/04/22 12:57 Jefferson % (Auto) 5.9 % 03/04/22 12:57 Eos % (Auto) 1.6 % 03/04/22 12:57 Baso % (Auto) 0.5 % 03/04/22 12:57 Neut # (Auto) 5.56 10^3/uL (1.8-7.7) 03/04/22 12:57 Lymph # (Auto) 2.0 10^3/uL (0.8-4.8) 03/04/22 12:57 Jefferson # (Auto) 0.5 10^3/uL (0.2-0.9) 03/04/22 12:57 Eos # (Auto) 0.1 10^3/uL (0.0-0.8) 03/04/22 12:57 Baso # (Auto) 0.0 10^3/uL (0.0-0.1) 03/04/22 12:57 Nucleated RBC % (auto) 0 % 03/04/22 12:57 Nucleated RBCs # 0.0 /100WBC 03/04/22 12:57 Ser , Semi-Qnt 0.50 mIU/mL 03/04/22 12:57 Discharge Plan Discharge Patient Disposition: Home Clinical Impression: Dysmenorrhea Condition: Stable Prescriptions: No Action albuterol sulfate [ProAir HFA] 90 mcg/actuation HFA aerosol inhaler 2 puff INHALATION Q6H PRN (Reason: shortness of breath or wheezing) Qty: 8.5 0RF ondansetron 4 mg film 4 mg PO DAILY PRN (Reason: nausea and vomiting) Qty: 10 0RF oxycodone 5 mg tablet 5 mg PO Q4H PRN (Reason: pain) Qty: 7 0RF Discharge Orders: Discharge ED (Routine); Ordered 03/04/22 Ordered By: Bryant Russell Referrals: Sherly Mayer FNP [Primary Care Provider] - Discharge Diet: Advance as tolerated Discharge Activity: Resume usual activity Patient Instructions: Dysmenorrhea (ED), Abdominal Pain (ED) Coding Level of Care Code ED Zmt Operator for Chg Fwd Exam Comprehensive
[2022-03-04 12:24] VITALS: BP 132/94; PULSE 90; RESP 18; TEMP 36.7; O2SAT 97
[2022-03-04 13:04] LABS: Basophils % 0.5 %; Eosinophils # 0.1 10^3/uL (0.0-0.8); Eosinophils % 1.6 %; Hematocrit 39.5 % (37.0-47.0); Mean Corpuscular HGB Conc 30.4 g/dL (30.0-36.0); Mean Corpuscular Hemoglobin 22.1 pg (28.0-34.0); Mean Corpuscular Volume 72.9 fl (81-99); Mean Platelet Volume 11.1 fL (7.4-10.4); Monocytes # 0.5 10^3/uL (0.2-0.9); Monocytes % 5.9 %; Neutrophils # 5.56 10^3/uL (1.8-7.7); Neutrophils % 67.8 %; Nucleated Red Blood Cells % 0 %; Platelet Count 336 10^3/cmm (130-400); Red Blood Count 5.42 10^6/uL (4.1-5.3); Red Cell Distribution Width 17.2 % (12.1-15.1); White Blood Count 8.2 10^3/uL (4.0-10.0)
[2022-03-04 13:42] LABS: Alanine Aminotransferase 11 U/L (0-33); Alkaline Phosphatase 98 U/L (35-105); Anion Gap 17.1 (5-19); Aspartate Amino Transferase 14 U/L (0-32); Blood Urea Nitrogen 8 mg/dL (6-20); Calcium 8.4 mg/dL (8.5-10.5); Carbon Dioxide 22 mmol/L (22-29); Chloride 103 mmol/L (98-107); Globulin 3.7 g/dL (1.3-4.6); Glomerular Filtration Rate 142.1 mL/min (90-130); Glucose 85 mg/dL (65-115); Osmolality Calculated 284 mOsm/kg (285-295); Potassium 4.1 mmol/L (3.5-5.1); Sodium 138 mmol/L (136-145); Total Bilirubin 0.4 mg/dL (0.15-1.2); Total Protein 7.7 g/dL (6.6-8.7)
[2022-03-04 13:51] VITALS: BP 132/94; PULSE 90; RESP 18; TEMP 36.7; O2SAT 97
--- NOTE | 2022-03-13 13:58 | DCPLANNER ---
Addendum entered by Violet Herrera 03/23/22 16:16: clinical business manager received the following message from the [facility] clinic regarding patient follow up: PT SEEN BY ANOTHER PROVIDER On 03/19/22 @ 11:08 Chata Ruiz Wrote To [facility] Front Office left voicemail Original Note: clinical business manager had message to schedule a follow up appointment for patient with [facility]. clinical business manager sent patients information to the front office staff at [facility]. Patients information will be printed and reviewed. Clinic will call patient with appointment information.
== END 2022-03-04 13:52 | disposition home or self-care (01) ==
PROVIDERS: Emergency Provider Emergency Medicine; PCP Nurse Practitioner Family
DX: N94.6 Dysmenorrhea, unspecified (principal)
CPT/HCPCS: 36415; 80053; 84702; 85025; 99283

== ENCOUNTER 2022-03-30 16:26 | Emergency (ER) | payer MEDICAID, SELFPAY ==
[2022-03-30 16:41] VITALS: BP 149/91; PULSE 101; RESP 16; TEMP 37.3; O2SAT 98
--- NOTE | 2022-03-30 17:19 | XRR_ITS ---
PROCEDURE INFORMATION: Exam: XR Right Femur Exam date and time: 03/30/2022 6:45 PM Age: 31 years old Clinical indication: Injury or trauma; Fall; Blunt trauma; Thigh or upper leg; Right TECHNIQUE: Imaging protocol: Radiologic exam of the Right femur. Views: 2 views. COMPARISON: No relevant prior studies available. FINDINGS: Bones/joints: Unremarkable. No acute fracture. Soft tissues: Unremarkable. XR/XR femur RT min 2V* [id number] IMPRESSION: No acute findings.
--- NOTE | 2022-03-30 19:11 | USR_ITS ---
PROCEDURE INFORMATION: Exam: US Duplex Right Lower Extremity Veins, Limited Exam date and time: 03/30/2022 9:08 PM Age: 31 years old Clinical indication: Pain and injury or trauma; Blunt trauma (contusions or hematomas); Lower extremity, lower leg level; Vessel not specified; Leg, lower; Injury date: 03/25/2022; Injury details: Ground level fall striking right leg; Patient HX: History of rle dvt 2018; Additional info: Pain and swelling TECHNIQUE: Imaging protocol: Real-time Duplex ultrasound of the Right Lower Extremity with 2-D jimenez scale, color Doppler flow and spectral waveform analysis with image documentation. Limited exam was focused on the right lower extremity veins. COMPARISON: US pelvic with transvaginal 03/26/2022 11:10 AM FINDINGS: Right deep veins: Unremarkable. The common femoral, femoral, proximal profunda femoral and popliteal veins are patent without thrombus. Normal Doppler waveforms. Normal compressibility and/or augmentation response. Right superficial veins: Unremarkable. Saphenofemoral junction is patent without thrombus. Soft tissues: Unremarkable. US/[place] [id number] IMPRESSION: No evidence of deep vein thrombosis.
[2022-03-30] MEDS: HYDROcodone-acetaminophen 5-325 mg Tablet 1 TAB PO (20:22)
--- NOTE | 2022-03-31 00:39 | ED_ITS ---
HPI - Fall General: Chief Complaint: Fall Stated Complaint: Fall/Right leg pain Time Seen by Provider: 03/30/22 18:20 History of Present Illness: 31-year-old female patient presents to the emergency department complaining of right knee pain and right thigh pain. Patient states she was walking on her balcony 3 days ago and fell on her knees. Patient states she had immediate knee pain and right femur pain. Patient states she had a big bruise this is resolved and now is hurting down into her calf area. Patient denies any fever. Patient denies any other trauma or injury. Patient denies any chest pain or shortness of breath Associated symptoms-after fall: Denies abdominal pain, chest pain, confusion, difficulty walking, headache(s), hematuria, lightheadedness, neck pain or vertigo Review of Systems Const: Denies: fever(s), chills, body aches, change in appetite, change in weight, fatigue, malaise or diaphoresis Eyes: Denies: change in vision, blurry vision, blind spots, photophobia, eye discomfort, eye discharge, eye redness, floaters or seeing flashes ENMT: Denies: throat pain, uvular edema, enlarged tonsils, odynophagia, hoarseness, mouth pain, swelling of lips/tongue, oral sores, bleeding gums, dental pain, dry mouth, ear or mastoid pain, ear discharge, change in hearing, tinnitus, disequilibrium, nasal discharge, nasal congestion, post nasal drip or sinus pain Card: Denies: chest pain, palpitations, irregular heart rhythm, edema, swelling of feet/ankles, lightheadedness, syncope, pre-syncope, dyspnea on exertion, orthopnea, leg pain with exertion or acrocyanosis Resp: Denies: dyspnea, productive cough, non-productive cough, wheezing, stridor, pain on inspiration, change in phlegm color, hemoptysis or chest congestion GI: Denies: abdominal pain, nausea, vomiting, hematemesis, dysphagia, jason rrhea, constipation, GI cramping, change in bowel habits or rectal pain : Denies: flank pain, difficulty voiding, dysuria, urinary frequency, urinary urgency, urinary hesitancy or hematuria Musc: Denies: neck pain, back pain, joint pain, joint swelling, joint redness, joint warmth or deformity Skin/Breast: Denies: rash, pruritus, erythema, sores, new lesions, changes in skin color or dry skin Neuro: Denies: headache(s), numbness in extremities, weakness in extremities, sensory changes, lack of coordination, difficulty walking, frequent falls, dizziness, vertigo, confusion, behavioral changes, Slurred speech present, difficulty communicating thoughts or seizure-like activity Psych: Denies: anxiety, depression, suicidal ideation or homicidal ideation Endo: Denies: polyuria, polydipsia, tired all the time, cold intolerance, excessive sweating, flushing, hot flashes or heat intolerance Brijesh/Lymph: Denies: easy bruising, easy bleeding, petechiae, purpura, enlarged lymph nodes or tender lymph nodes All/Imm: Denies: urticaria, throat swelling, tongue swelling, facial swelling, acute wheezing or itchy eyes PFSH ED PFSH: Medical History Asthma No pertinent past medical history Surgical History History of arthroscopic procedure on shoulder Family History Denies family history of Clotting disorder Bleeding disorder Social History Smoking and tobacco status: never smoked Female Reproductive History: Date of last menstrual period: 02/04/21 Para: 0 Spontaneous abortions: Yes Physical Exam Const: COMMON NORMALS: no acute distress, patient oriented x3, healthy appearing, alert and well nourished GENERAL APPEARANCE: cooperative, comfortable, well kempt and well developed; not ill appearing ORIENTATION/CONSCIOUSNESS: Yes awake, Yes oriented to person, Yes oriented to place and Yes oriented to time HENMT: COMMON NORMALS: normocephalic, atraumatic, hearing grossly normal bilaterally, external ears normal, EAC's normal, TM's normal bilaterally, Normal external nose present, Normal nasal mucous membranes and turbinates present and moist oral mucous membranes HEAD & SCALP: normal to inspection, normocephalic and atraumatic FACE & SINUS: normal facial exam, sinuses nontender and face symmetric NOSE: Normal external nose present, Normal nares present, Normal nasal mucous membranes and turbinates present, No nasal discharge present and Abnormal external nose present EXTERNAL EAR: Yes external ears normal and Yes mastoids normal EXTERNAL AUDITORY CANAL: EAC's normal TYMPANIC MEMBRANE: TM's normal bilaterally MOUTH: Normal oral and palatal mucosa present, lip n ormal, tongue normal and Normal salivary glands and ducts present THROAT: no uvular edema Eye: COMMON NORMALS: Equal, round and reactive pupils present, EOMs intact bilaterally, conjunctivae normal, no scleral icterus and no papilledema GENERAL EYE: appearance normal, both eyes and all related structures EYELID: eyelids normal CONJUNCTIVA: Yes conjunctivae normal SCLERA: sclerae normal CORNEA: Yes corneas normal PUPIL: Yes Equal, round and reactive pupils present DIRECT OPHTHALMOSCOPY: Yes no papilledema Neck/C-Spine: COMMON NORMALS: full ROM, no lymphadenopathy, supple, no meningeal signs, no JVD and Thyroid normal GENERAL: Yes normal visual inspection and Yes trachea midline THYROID: Thyroid normal CERVICAL SPINE: Yes cervical ROM normal Lymph: LYMPHATIC: no lymphadenopathy noted and no lymphedema noted Chest: COMMONS NORMALS: normal inspection of the chest and normal palpation of entire chest wall Resp: COMMON NORMALS: normal respiratory effort, No retractions, No use of accessory muscles and clear to auscultation bilaterally EFFORT & INSPECTION: Yes able to speak in complete sentences and Yes symmetric chest movement AUSCULTATION: clear to auscultation bilaterally Cardio: COMMON NORMALS: no JVD, regular rate and regular rhythm RATE: regular rate RHYTHM: regular rhythm GI: COMMON NORMALS: Normal to inspection, nondistended, normoactive bowel sounds present, Soft to palpation, non-tender, No hepatosplenomegaly present, no masses and no bruits INSPECTION: Yes normal to inspection AUSCULTATION: Yes normoactive bowel sounds PALPATION: Yes Soft to palpation and Yes No hepatosplenomegaly present PERCUSSION: normal to percussion RECTAL EXAM: deferred : COMMON NORMALS: Yes no CVA tenderness, Yes normal external appearance, Yes normal appearance of the vagina, Yes normal appearance of the cervix, Yes No adnexal tenderness and Yes no masses BLADDER/KIDNEY EXAM: Yes no CVA tenderness Back/Pelvis: COMMON NORMALS: no CVA tenderness, thoracic and lumbar spine normal to inspection, no thoracic nor lumbar tenderness, thoraco-lumbar ROM normal and straight leg raise negative bilaterally THORACIC SPINE/UPPER BACK: Yes normal to inspection LUMBAR SPINE/LOWER BACK: Yes normal to inspection Extremity: COMMON NORMALS: normal to inspection, full ROM and capillary refill normal GENERAL: Yes normal exam except as noted Neuro: COMMON NORMALS: patient oriented x3, CN's II-XII intact bilaterally, moves all extremities, no focal motor deficits, no sensory deficits noted, deep tendon reflexes 2+ bilaterally and gait normal SENSORIUM/ORIENTATION: Yes alert, Yes oriented to person, Yes oriented to place and Yes oriented to time MENINGEAL SIGNS: Yes no meningeal signs CRANIAL NERVES: Yes CN normal except as noted SPEECH: speech normal GAIT: Yes Normal gait present SENSORY EXAM: Yes extremities MOTOR EXAM: 5/5 motor strength present throughout Psych: COMMON NORMALS: mental status grossly normal, Normal thought process present, cooperative, normal affect, speech normal, activity/motor behavior normal, denies hallucinations, denies homicidal ideation and denies suicidal ideation APPEARANCE: Yes grossly normal and Yes well kempt ATTITUDE: Yes calm ACTIVITY/MOTOR BEHAVIOR: Yes appropriate eye contact SPEECH: Yes normal speech THOUGHT PROCESS: Normal thought process present THOUGHT CONTENT: Yes Normal thought content present ATTENTION/CONCENTRATION: Yes attention grossly intact MEMORY/COGNITION: Yes memory grossly intact INSIGHT: Good insight present (Psych) JUDGEMENT: Good judgement present (Psych) Skin: COMMON NORMALS: no rashes or lesions noted, no wounds, turgor normal, no jaundice, no petechiae and no mottling GENERAL SKIN EXAM: no rashes or lesions noted and turgor normal Course 2 Vital Signs: Vital signs: Vital Signs Temperature 99.2 F 03/30/22 16:41 Pulse Rate 101 H 03/30/22 16:41 Respiratory Rate 16 03/30/22 16:41 Blood Pressure 149/91 03/30/22 16:41 Pulse Oximetry 98 03/30/22 16:41 Oxygen Delivery Me thod 03/30/22 16:41 MDM - Fall Medical Decision Making Patient is well-appearing nontoxic and in no acute distress.31-year-old female patient presents to the emergency department complaining of right knee pain and right thigh pain. Patient states she was walking on her balcony 3 days ago and fell on her knees. Patient states she had immediate knee pain and right femur pain. Patient states she had a big bruise this is resolved and now is hurting down into her calf area. Patient denies any fever. Patient denies any other trauma or injury. Patient denies any chest pain or shortness of breath patient's x-rays are negative for any acute findings. Patient did have calf tenderness. Given patient's history of contusion and pain now radiating down into her calf with her calf tenderness. I did go ahead and ultrasound to rule out DVT. Ultrasound was negative for DVT. Patient is neurovascularly intact distally. Lab Data Radiology Impressions Femur X-Ray 03/30/22 17:19 IMPRESSION: No acute findings. Venous Duplex 03/30/22 19:11 IMPRESSION: No evidence of deep vein thrombosis. Discharge Plan Discharge Patient Disposition: Home Clinical Impression: Contusion Condition: Stable Prescriptions: No Action albuterol sulfate [ProAir HFA] 90 mcg/actuation HFA aerosol inhaler 2 puff INHALATION Q6H PRN (Reason: shortness of breath or wheezing) Qty: 8.5 0RF ondansetron 4 mg film 4 mg PO DAILY PRN (Reason: nausea and vomiting) Qty: 10 0RF oxycodone 5 mg tablet 5 mg PO Q4H PRN (Reason: pain) Qty: 7 0RF Discharge Orders: Discharge ED (Routine); Ordered 03/30/22 Ordered By: Debbie Alegria Referrals: Fili Dumont MD [Primary Care Provider] - Discharge Diet: Advance as tolerated Discharge Activity: Increase activity as tolerated Patient Instructions: Opioid Safety, Pain Management Activity Restrictions/Additional Instructions: Apply heat to area Return to ER with any worsening of symptoms Coding Level of Care Code ED Family And Marriage Counsellor for Cassi Singh
== END 2022-03-30 23:27 | disposition home or self-care (01) ==
PROVIDERS: Emergency Provider Registered Nurse; PCP Family Medicine
DX: S80.11XA Contusion of right lower leg, initial encounter (principal); W18.30XA Fall on same level, unspecified, initial encounter
CPT/HCPCS: 73552; 93971; 99284

== ENCOUNTER 2022-04-04 15:10 | Emergency (ER) | payer MEDICAID, SELFPAY ==
[2022-04-04 15:10] VITALS: BMI 41.0
--- NOTE | 2022-04-04 16:20 | ED_ITS ---
HPI - Abdominal Pain General: Chief Complaint: Abdominal Pain Stated Complaint: States her ovaries are hurting Time Seen by Provider: 04/04/22 15:58 Source: patient Mode of arrival: ambulatory History of Present Illness: 31 yo female complaining of pelvic pain. She was recently seen at an outlying clinic they did an ultrasound on 915 had a right ovarian cyst. She is complaining of discomfort on that pelvic region now. She denies any dysuria urgency or frequency. No fever sweats or chills. MD elicited complaint: abdominal pain Pertinent past history: other (Ovarian cyst) Onset (ago): day(s) Pain Consistency: constant Location: Pelvis Severity: moderate Quality: cramping Radiation: none Migration to: no migration Exacerbating factors: nothing Relieving factors: nothing Associated Symptoms: Denies anorexia, belching, bloating, change in bowel habits, change in stool character, chills, coffee ground emesis, constipation, GI cramping, diarrhea, dyspepsia, dysuria, excessive flatus, fever(s), heartburn, hematochezia, hematuria, hematemesis, fecal incontinence, loose stools, melena, nausea, poor appetite and vomiting Related Data: Date of Last Menstrual Period: 12/24/21 Review of Systems Const: Denies: fever(s) or chills ENMT: Denies: throat pain, ear or mastoid pain, nasal discharge or nasal congestion Card: Denies: chest pain, edema, dyspnea on exertion or orthopnea Resp: Denies: dyspnea, productive cough or non-productive cough GI: Reports: abdominal pain; Denies: nausea, vomiting, hematemesis, coffee ground emesis, heartburn, diarrhea, constipation, bloating, GI cramping, belching, excessive flatus, fecal incontinence, change in bowel habits, change in stool character, hematochezia or melena : Denies: flank pain, difficulty voiding, dysuria, urinary frequency, urinary urgency or hematuria Skin/Breast: Denies: rash or pruritus PFSH ED PFSH: Medical History Asthma No pertinent past medical history Surgical History History of arthroscopic procedure on shoulder Family History Denies family history of Clotting disorder Bleeding disorder Social History Smoking and tobacco status: never smoked Female Reproductive History: Date of last menstrual period: 12/24/21 Para: 0 Spontaneous abortions: Yes Physical Exam Const: COMMON NORMALS: no acute distress GENERAL APPEARANCE: cooperative and comfortable ORIENTATION/CONSCIOUSNESS: Yes awake, Yes oriented to person, Yes oriented to place and Yes oriented to time HENMT: COMMON NORMALS: normocephalic, atraumatic and hearing grossly normal bilaterally HEAD & SCALP: normocephalic and atraumatic Resp: COMMON NORMALS: normal respiratory effort, No retractions, No use of accessory muscles and clear to auscultation bilaterally AUSCULTATION: clear to auscultation bilaterally Cardio: COMMON NORMALS: regular rate, regular rhythm and No murmurs present (Cardio) RATE: regular rate RHYTHM: regular rhythm GI: COMMON NORMALS: Soft to palpation and No hepatosplenomegaly present AUSCULTATION: Yes normoactive bowel sounds PALPATION: Yes Soft to palpation, No Tenderness to palpation present (GI), No Guarding due to palpation present (GI) and Yes No hepatosplenomegaly present Extremity: COMMON NORMALS: normal to inspection, capillary refill normal, no clubbing, cyanosis or edema, no calf tenderness and no pedal edema Neuro: SENSORIUM/ORIENTATION: Yes oriented to person, Yes oriented to place and Yes oriented to time Skin: COMMON NORMALS: no rashes or lesions noted GENERAL SKIN EXAM: no rashes or lesions noted Course Vital Signs: Vital signs: Vital Signs Oxygen Delivery Me thod 04/04/22 15:10 MDM - Abdominal Pain Medical Decision Making No acute findings on abdominal exam. Known ovarian cyst from recent ultrasound. UA is negative urine negative discharge home switch to diclofenac as needed follow-up with primary care return if significant worsening discomfort. Medical Records I reviewed the patient's medical records. Lab Data I reviewed the patient's lab results. Labs/Radiology: Laboratory Results HCG, Qual Negative (Negative) 04/04/22 16:26 Urine Color Yellow (Yellow) 04/04/22 16:26 Urine Appearance Clear (CLEAR) 04/04/22 16:26 Urine pH 5 (5-7) 04/04/22 16:26 Ur Specific [place] 1.030 (1.005-1.030) 04/04/22 16:26 Urine Protein Neg (Negative) 04/04/22 16:26 Urine Glucose (UA) Norm (Normal) 04/04/22 16:26 Urine Ketones Negative (Negative) 04/04/22 16:26 Urine Blood Neg (Negative) 04/04/22 16:26 Urine Nitrate Negative (Negative) 04/04/22 16:26 Urine Bilirubin 1+ (Negative) H 04/04/22 16:26 Urine Urobilinogen Neg mg/dL (Negative) 04/04/22 16:26 Ur Leukocyte Esterase Negative (Negative) 04/04/22 16:26 Discharge Plan Discharge Patient Disposition: Home Clinical Impression: Ovarian cyst Condition: Stable Prescriptions: New diclofenac sodium 75 mg tablet,delayed release (DR/EC) 75 mg PO Q12H PRN (Reason: pain) Qty: 20 0RF No Action albuterol sulfate [ProAir HFA] 90 mcg/actuation HFA aerosol inhaler 2 puff INHALATION Q6H PRN (Reason: shortness of breath or wheezing) Qty: 8.5 0RF ondansetron 4 mg film 4 mg PO DAILY PRN (Reason: nausea and vomiting) Qty: 10 0RF oxycodone 5 mg tablet 5 mg PO Q4H PRN (Reason: pain) Qty: 7 0RF Discharge Orders: Discharge ED (Routine); Ordered 04/04/22 Ordered By: Hernandez Marcos Referrals: Fili Dumont MD [Primary Care Provider] - Discharge Diet: Usual diet Discharge Activity: Limit activity as instructed Patient Instructions: Opioid Safety, Pain Management Activity Restrictions/Additional Instructions: Follow-up with your primary care doctor next week if symptoms persist. Coding Level of Care Code ED Heavy Equipment Supervisor for Cassi Singh
[2022-04-04 16:30] LABS: Add Urine Microscopic? NO; Charge for UA Resulting for Rev
[2022-04-04 16:39] LABS: Bilirubin Urine 1+ (Negative); Blood Urine Neg (Negative); Glucose Urine UA Norm (Normal); Ketones Urine Negative (Negative); Nitrate Urine Negative (Negative); Protein Urine Neg (Negative); Urine Appearance Clear (CLEAR); Urine Color Yellow (Yellow); Urobilinogen Urine Neg (Negative); pH Urine 5 (5-7)
[2022-04-04 16:40] LABS: HCG Qualitative Urine. Negative (Negative); Leukocyte Esterase Urine Negative (Negative)
[2022-04-04] MEDS: ketorolac 60 mg/2 mL INJ IM (16:43)
== END 2022-04-04 17:25 | disposition home or self-care (01) ==
PROVIDERS: Emergency Medicine; Emergency Provider Family Medicine; PCP Family Medicine
DX: N83.201 Unspecified ovarian cyst, right side (principal); J45.909 Unspecified asthma, uncomplicated
CPT/HCPCS: 81003; 81025; 96372; 99284; J1885

== ENCOUNTER 2022-04-22 15:55 | Emergency (ER) | payer MEDICAID, SELFPAY ==
[2022-04-22 16:08] VITALS: BP 126/90; PULSE 78; RESP 18; TEMP 36.8; O2SAT 98; BMI 40.3
--- NOTE | 2022-04-22 16:14 | XRR_ITS ---
PROCEDURE INFORMATION: Exam: XR Left Shoulder Exam date and time: 04/22/2022 4:30 PM Age: 31 years old Clinical indication: Pain; Shoulder; Left; Additional info: Fall TECHNIQUE: Imaging protocol: Radiologic exam of the Left shoulder. Views: 2 or more views. COMPARISON: CR (CHEST, ) 01/02/2021 6:15 PM FINDINGS: Bones/joints: Osseous structures are intact. Negative for fracture or dislocation. Soft tissues: Normal. XR/XR shoulder LT min 2V* [id number] IMPRESSION: No acute findings.
--- NOTE | 2022-04-22 16:14 | XRR_ITS ---
PROCEDURE INFORMATION: Exam: XR Cervical Spine Exam date and time: 04/22/2022 4:30 PM Age: 31 years old Clinical indication: Neck pain; Additional info: Fall TECHNIQUE: Imaging protocol: Radiologic exam of the cervical spine. Views: 2 or 3 views. COMPARISON: CT head wo con* [id number] 12/09/2021 8:56 AM FINDINGS: Bones/joints: Normal. No acute fracture. Normal alignment. Soft tissues: Unremarkable. XR/XR cervical spine 3V* [id number] IMPRESSION: No acute findings.
--- NOTE | 2022-04-22 16:19 | CTR_ITS ---
PROCEDURE INFORMATION: Exam: CT Head Without Contrast Exam date and time: 04/22/2022 5:20 PM Age: 31 years old Clinical indication: Injury or trauma; Fall; Blunt trauma (contusions or hematomas); With loss of consciousness; Not specified; Injury date: 04.22.2022; Additional info: Fall wiht + loc, fell going up the stairs left sided pain TECHNIQUE: Imaging protocol: Computed tomography of the head without contrast. Radiation optimization: All CT scans at this facility use at least one of these dose optimization techniques: automated exposure control; mA and/or kV adjustment per patient size (includes targeted exams where dose is matched to clinical indication); or iterative reconstruction. COMPARISON: CT head wo con* [id number] 12/09/2021 8:56 AM RADIATION DOSE METRICS: Total DLP (mGy-cm): 1079.98 FINDINGS: Brain: Normal. No hemorrhage. Unremarkable white matter. No mass effect. Cerebral ventricles: No ventriculomegaly. Paranasal sinuses: Visualized sinuses are unremarkable. No fluid levels. Mastoid air cells: Visualized mastoid air cells are well aerated. Bones/joints: Unremarkable. No acute fracture. Soft tissues: Unremarkable. CT/CT head wo con* [id number] IMPRESSION: No acute intracranial abnormality.
[2022-04-22 17:04] LABS: Basophils % 0.5 %; Eosinophils # 0.2 10^3/uL (0.0-0.8); Eosinophils % 2.3 %; Hemoglobin 11.2 g/dL (11.5-15.3); Lymphocytes % 30.6 %; Mean Corpuscular HGB Conc 30.3 g/dL (30.0-36.0); Mean Corpuscular Hemoglobin 22.5 pg (28.0-34.0); Mean Corpuscular Volume 74.4 fl (81-99); Mean Platelet Volume 10.8 fL (7.4-10.4); Monocytes # 0.4 10^3/uL (0.2-0.9); Monocytes % 6.2 %; Neutrophils # 3.97 10^3/uL (1.8-7.7); Neutrophils % 60.1 %; Nucleated Red Blood Cells % 0 %; Platelet Count 362 10^3/cmm (130-400); Red Blood Count 4.97 10^6/uL (4.1-5.3); Red Cell Distribution Width 16.5 % (12.1-15.1); White Blood Count 6.6 10^3/uL (4.0-10.0)
--- NOTE | 2022-04-22 17:18 | ED_ITS ---
HPI - Fall General: Chief Complaint: Fall Stated Complaint: fall Time Seen by Provider: 04/22/22 17:17 History of Present Illness: 31-year-old female comes in today with injury sustained during a fall while walking up the stairs. Patient slipped on a step causing her to fall forward. Patient reports some abrasions to the knees and elbows of her arms and legs. Patient also reports some left shoulder pain and occipital headache. Patient has no injuries noted to the head. Patient appears nontoxic. Associated symptoms-after fall: Reports headache(s) and neck pain Review of Systems General: Reports: 10 or more systems reviewed and unremarkable except in HPI and below Musc: Reports: neck pain and extremity pain Neuro: Reports: headache(s) PFSH ED PFSH: Medical History Asthma No pertinent past medical history Surgical History History of arthroscopic procedure on shoulder Family History Denies family history of Clotting disorder Bleeding disorder Social History Smoking and tobacco status: never smoked Female Reproductive History: Date of last menstrual period: 12/24/21 Para: 0 Spontaneous abortions: Yes Physical Exam Const: COMMON NORMALS: alert HENMT: COMMON NORMALS: atraumatic HEAD & SCALP: atraumatic Neck/C-Spine: CERVICAL SPINE: Yes cervical ROM abnormal, No Cervical spine tenderness and Yes Paracervical muscle tenderness Resp: COMMON NORMALS: normal respiratory effort and clear to auscultation bilaterally AUSCULTATION: clear to auscultation bilaterally Cardio: COMMON NORMALS: regular rate and regular rhythm RATE: regular rate RHYTHM: regular rhythm Extremity: RIGHT UPPER EXTREMITY: Yes lower arm (Superficial abrasion) LEFT UPPER EXTREMITY: Yes shoulder joint (Anterior soft tissue tenderness) and Yes lower arm (Superficial abrasion) RIGHT LOWER EXTREMITY: Yes knee joint (Superficial abrasion) LEFT LOWER EXTREMITY: Yes knee joint (Superficial abrasion) Neuro: SENSORIUM/ORIENTATION: Yes alert Skin: TRAUMA: abrasion (Abrasion forearms and knee area) Course Vital Signs: Vital signs: Vital Signs Temperature 98.2 F 04/22/22 16:08 Pulse Rate 78 04/22/22 16:08 Respiratory Rate 18 04/22/22 16:08 Blood Pressure 126/90 04/22/22 16:08 Pulse Oximetry 98 04/22/22 16:08 Oxygen Delivery Me thod 04/22/22 16:08 MDM - Fall Medical Decision Making Patient comes in today for injury sustained during a fall while walking up the stairs. On exam patient has some superficial abrasions to her forearms and knees. Patient has normal range of motion in the extremities. Pulses and sensation are normal distally. Patient also reports some tenderness to the paraspinous muscles of the cervical spine. Differential diagnosis includes myofascial strain, contusion, fracture, intracranial bleeding. CT of the head and neck was unremarkable. X-ray of the left shoulder was negative. Reviewed exam with patient recommended Tylenol and ibuprofen for pain. Also recommended ice or heat for further pain relief. Recommend patient follow-up with primary care for further instruction return to ER for new concerns. Lab Data : 04/22/22 16:45 04/22/22 16:45 Radiology Impressions Cervical Spine X-Ray 04/22/22 16:14 IMPRESSION: No acute findings. Shoulder X-Ray 04/22/22 16:14 IMPRESSION: No acute findings. Head CT 04/22/22 16:19 IMPRESSION: No acute intracranial abnormality. Laboratory Results WBC 6.6 10^3/uL (4.0-10.0) 04/22/22 16:45 RBC 4.97 10^6/uL (4.1-5.3) 04/22/22 16:45 Hgb 11.2 g/dL (11.5-15.3) L 04/22/22 16:45 Hct 37.0 % (37.0-47.0) 04/22/22 16:45 MCV 74.4 fl (81-99) L 04/22/22 16:45 MCH 22.5 pg (28.0-34.0) L 04/22/22 16:45 MCHC 30.3 g/dL (30.0-36.0) 04/22/22 16:45 RDW 16.5 % (12.1-15.1) H 04/22/22 16:45 Plt Count 362 10^3/cmm (130-400) 04/22/22 16:45 MPV 10.8 fL (7.4-10.4) H 04/22/22 16:45 Neut % (Auto) 60.1 % 04/22/22 16:45 Lymph % (Auto) 30.6 % 04/22/22 16:45 Boyd % (Auto) 6.2 % 04/22/22 16:45 Eos % (Auto) 2.3 % 04/22/22 16:45 Baso % (Auto) 0.5 % 04/22/22 16:45 Neut # (Auto) 3.97 10^3/uL (1.8-7.7) 04/22/22 16:45 Lymph # (Auto) 2.0 10^3/uL (0.8-4.8) 04/22/22 16:45 Boyd # (Auto) 0.4 10^3/uL (0.2-0.9) 04/22/22 16:45 Eos # (Auto) 0.2 10^3/uL (0.0-0.8) 04/22/22 16:45 Baso # (Auto) 0.0 10^3/uL (0.0-0.1) 04/22/22 16:45 Nucleated RBC % (auto) 0 % 04/22/22 16:45 Nucleated RBCs # 0.0 /100WBC 04/22/22 16:45 Sodium 137 mmol/L (136-145) 04/22/22 16:45 Potassium 3.8 mmol/L (3.5-5.1) 04/22/22 16:45 Chloride 102 mmol/L (98-107) 04/22/22 16:45 Carbon Dioxide 24 mmol/L (22-29) 04/22/22 16:45 Anion Gap 14.8 (5-19) 04/22/22 16:45 BUN 8 mg/dL (6-20) 04/22/22 16:45 Creatinine 0.5 mg/dL (0.5-0.9) 04/22/22 16:45 GFR Calculation 142.1 mL/min (90-130) H 04/22/22 16:45 Glucose 91 mg/dL (65-115) 04/22/22 16:45 Calculated Osmolality 282 mOsm/kg (285-295) L 04/22/22 16:45 Calcium 9.2 mg/dL (8.5-10.5) 04/22/22 16:45 Total Bilirubin 0.3 mg/dL (0.15-1.2) 04/22/22 16:45 AST 13 U/L (0-32) 04/22/22 16:45 ALT 11 U/L (0-33) 04/22/22 16:45 Alkaline Phosphatase 80 U/L (35-105) 04/22/22 16:45 Total Protein 7.3 g/dL (6.6-8.7) 04/22/22 16:45 Albumin 3.7 g/dL (3.5-5.2) 04/22/22 16:45 Globulin 3.6 g/dL (1.3-4.6) 04/22/22 16:45 Discharge Plan Discharge Patient Disposition: Home Clinical Impression: Fall (on) (from) other stairs and steps, initial encounter, Cervical muscle strain, Abrasion Acute shoulder pain Qualifiers: Laterality: left Qualified Code(s): M25.512 - Pain in left shoulder Condition: Stable Prescriptions: No Action albuterol sulfate [ProAir HFA] 90 mcg/actuation HFA aerosol inhaler 2 puff INHALATION Q6H PRN (Reason: shortness of breath or wheezing) Qty: 8.5 0RF ondansetron 4 mg film 4 mg PO DAILY PRN (Reason: nausea and vomiting) Qty: 10 0RF oxycodone 5 mg tablet 5 mg PO Q4H PRN (Reason: pain) Qty: 7 0RF diclofenac sodium 75 mg tablet,delayed release (DR/EC) 75 mg PO Q12H PRN (Reason: pain) Qty: 20 0RF Discharge Orders: Discharge ED (Routine); Ordered 04/22/22 Ordered By: Markus Thakur Referrals: Fili Dumont MD [Primary Care Provider] - Discharge Activity: Increase activity as tolerated Patient Instructions: Musculoskeletal Pain (ED) Activity Restrictions/Additional Instructions: Home and rest. Activity as tolerated. Use acetaminophen and ibuprofen for pain. Gentle stretching and range of motion exercises. Ice or heat packs for further pain relief. Follow-up with primary care for further instructions. Coding Level of Care Code ED Union Contract Representative for Cassi Singh
[2022-04-22 17:37] LABS: Alanine Aminotransferase 11 U/L (0-33); Albumin Level 3.7 g/dL (3.5-5.2); Alkaline Phosphatase 80 U/L (35-105); Anion Gap 14.8 (5-19); Aspartate Amino Transferase 13 U/L (0-32); Blood Urea Nitrogen 8 mg/dL (6-20); Calcium 9.2 mg/dL (8.5-10.5); Carbon Dioxide 24 mmol/L (22-29); Chloride 102 mmol/L (98-107); Globulin 3.6 g/dL (1.3-4.6); Glomerular Filtration Rate 142.1 mL/min (90-130); Glucose 91 mg/dL (65-115); Osmolality Calculated 282 mOsm/kg (285-295); Potassium 3.8 mmol/L (3.5-5.1); Sodium 137 mmol/L (136-145); Total Bilirubin 0.3 mg/dL (0.15-1.2); Total Protein 7.3 g/dL (6.6-8.7)
[2022-04-22] MEDS: acetaminophen 500 mg Tablet 1000 MG PO (18:18)
== END 2022-04-22 18:20 | disposition home or self-care (01) ==
PROVIDERS: Family Medicine; Emergency Provider Nurse Practitioner Family; PCP Family Medicine
DX: S16.1XXA Strain of muscle, fascia and tendon at neck level, initial encounter (principal); M25.512 Pain in left shoulder; S50.812A Abrasion of left forearm, initial encounter; S50.811A Abrasion of right forearm, initial encounter; S80.212A Abrasion, left knee, initial encounter; S80.211A Abrasion, right knee, initial encounter; W10.8XXA Fall (on) (from) other stairs and steps, initial encounter
CPT/HCPCS: 36415; 70450; 72040; 73030; 80053; 85025; 99284

== ENCOUNTER 2022-07-10 11:28 | Emergency (ER) | payer MEDICAID, SELFPAY ==
[2022-07-10 11:30] VITALS: BP 131/75; PULSE 90; RESP 18; TEMP 36.8; O2SAT 97; BMI 41.0
--- NOTE | 2022-07-10 11:52 | XR_ITS ---
WS: [id number] Chest with left rib detail, 3 views, 07/10/2022 Clinical Data: trauma Comparison: Portable chest, 01/02/2021 Findings: The lungs show no nodules, masses, or effusions. The heart is normal. No pneumonia or pneumothorax is seen. The ribs are intact. No rib fractures seen. No subcutaneous emphysema is present. XR/XR ribs LT mn 3V w CXR1V [id number] Impression: Negative chest with left rib detail.
--- NOTE | 2022-07-10 11:58 | ED_ITS ---
HPI - Fall General: Chief Complaint: Fall Stated Complaint: Fall, multiple lacs Time Seen by Provider: 07/10/22 11:43 History of Present Illness: Patient comes in with back pain, and multiple abrasions after a fall today. States that she was going down steps when she tripped and fell skinning both knees, her left hand, her nose. States she has been having significant left upper back pain since then as well. Associated symptoms-after fall: Denies abdominal pain, chest pain, headache(s) or neck pain Review of Systems Const: Denies: fever(s) or body aches Eyes: Denies: change in vision or blurry vision ENMT: Denies: throat pain or odynophagia Card: Denies: chest pain or palpitations Resp: Denies: dyspnea or productive cough GI: Denies: abdominal pain, nausea or vomiting : Denies: flank pain or dysuria Musc: Reports: back pain; Denies: neck pain Skin/Breast: Denies: rash or pruritus Neuro: Denies: headache(s) or numbness in extremities Psych: Denies: anxiety or change in appetite Endo: Denies: polyuria or excessive sweating PFSH ED PFSH: Medical History Asthma No pertinent past medical history Surgical History History of arthroscopic procedure on shoulder Family History Denies family history of Clotting disorder Bleeding disorder Social History Smoking and tobacco status: never smoked Female Reproductive History: Date of last menstrual period: 12/24/21 Para: 0 Spontaneous abortions: Yes Physical Exam Const: COMMON NORMALS: patient oriented x3, healthy appearing and alert OTHER: Mild distress from pain HENMT: COMMON NORMALS: normocephalic HEAD & SCALP: normocephalic OTHER: Superficial abrasion to the nasal bridge Eye: COMMON NORMALS: Equal, round and reactive pupils present and EOMs intact bilaterally PUPIL: Yes Equal, round and reactive pupils present Neck/C-Spine: COMMON NORMALS: full ROM and supple Resp: COMMON NORMALS: No retractions and No use of accessory muscles OTHER: Patient is splinting with deep inspiration due to pain Cardio: COMMON NORMALS: regular rate and regular rhythm RATE: regular rate RHYTHM: regular rhythm GI: COMMON NORMALS: Normal to inspection, nondistended, normoactive bowel sounds present, Soft to palpation and non-tender PALPATION: Yes Soft to palpation Back/Pelvis: COMMON NORMALS: thoracic and lumbar spine normal to inspection and no thoracic nor lumbar tenderness Extremity: COMMON NORMALS: full ROM OTHER: Superficial abrasions to bilateral knees, and left palm Neuro: COMMON NORMALS: patient oriented x3 SENSORIUM/ORIENTATION: Yes alert Psych: COMMON NORMALS: mental status grossly normal and cooperative Skin: OTHER: Superficial abrasion to bilateral knees, and left palm Course Vital Signs: Vital signs: Vital Signs Temperature 98.3 F 07/10/22 11:30 Pulse Rate 90 07/10/22 11:30 Respiratory Rate 18 07/10/22 11:30 Blood Pressure 131/75 07/10/22 11:30 Pulse Oximetry 97 07/10/22 11:30 Oxygen Delivery Me thod 07/10/22 11:30 MDM - Fall Medical Decision Making Patient comes in with back pain, and multiple abrasions after a fall today. States that she was going down steps when she tripped and fell skinning both knees, her left hand, her nose. States she has been having significant left upper back pain since then as well. On physical exam she is not taking deep breaths due to the pain in her back. She has a superficial abrasion to bilateral knees, her left palm, and her nasal bridge. She also has tenderness to palpation over the ribs in her posterior left rib cage. Will check x-ray, and reassess. On reassessment I talked to the patient about the test results. Will discharge home at this time with precautions to return for worsening or changing symptoms. Lab Data Radiology Impressions Ribs X-Ray 07/10/22 11:52 Impression: Negative chest with left rib detail. Head CT 07/10/22 12:02 IMPRESSION: 1. No evidence of intracranial hemorrhage or mass effect. 2. No acute intracranial findings. Discharge Plan Discharge Patient Disposition: Home Clinical Impression: Abrasion, Concussion Condition: Stable Prescriptions: No Action albuterol sulfate [ProAir HFA] 90 mcg/actuation HFA aerosol inhaler 2 puff INHALATION Q6H PRN (Reason: shortness of breath or wheezing) Qty: 8.5 0RF ondansetron 4 mg film 4 mg PO DAILY PRN (Reason: nausea and vomiting) Qty: 10 0RF oxycodone 5 mg tablet 5 mg PO Q4H PRN (Reason: pain) Qty: 7 0RF diclofenac sodium 75 mg tablet,delayed release (DR/EC) 75 mg PO Q12H PRN (Reason: pain) Qty: 20 0RF Discharge Orders: Discharge ED (Routine); Ordered 07/10/22 Ordered By: Kev Bazzi Referrals: Fili Dumont MD [Primary Care Provider] - Patient Instructions: Abrasion, Concussion (ED) Coding Level of Care Code ED Content Development Manager for Cassi Fwd Exam Comprehensive
--- NOTE | 2022-07-10 12:02 | CT_ITS ---
WS: [id number] CT HEAD TECHNIQUE: Noncontrast CT of the head obtained from the skullbase to the vertex. CLINICAL INFORMATION: trauma COMPARISON: CT April 22, 2022 DLP: 1095.[address] scans at [facility] use at least one of these dose optimization techniques: automated e xposure control; mA and/or kV adjustment per patient size (includes targeted exams where dose is matc hed to clinical indication); or iterative reconstruction. FINDINGS: No evidence of intracranial hemorrhage or mass effect. Ventricular system and basal cisterns are dominguez nt. No extra-axial fluid collections. No evidence of mass or mass effect. Normal jimenez-white different iation. Paranasal sinuses and mastoid air cells are well aerated. .Normal visualized soft tissues. CT/CT head wo con* [id number] IMPRESSION: 1. No evidence of intracranial hemorrhage or mass effect. 2. No acute intracranial findings.
== END 2022-07-10 14:10 | disposition home or self-care (01) ==
PROVIDERS: Emergency Provider Emergency Medicine; PCP Family Medicine
DX: S06.0XAA Concussion with loss of consciousness status unknown, initial encounter (principal); S80.212A Abrasion, left knee, initial encounter; S80.211A Abrasion, right knee, initial encounter; S60.512A Abrasion of left hand, initial encounter; S00.31XA Abrasion of nose, initial encounter; W01.0XXA Fall on same level from slipping, tripping and stumbling without subsequent striking against object, initial encounter
CPT/HCPCS: 70450; 71101; 99284